=== PATIENT | male | born 1940 | race Caucasian/White ===

== ENCOUNTER 2019-11-12 10:11 | Outpatient (REF) | payer MEDICARE, SELFPAY ==
[2019-11-12 11:58] LABS: Estimated Average Glucose 146 mg/dL; Hemoglobin A1c % 6.7 %
[2019-11-12 12:17] LABS: Alanine Aminotransferase 18 U/L (0-40); Anion Gap 11 (12-20); Aspartate Amino Transferase 17 U/L (5-37); Blood Urea Nitrogen 16 mg/dL (9-16); Calcium 9.5 mg/dL (8.4-10.2); Carbon Dioxide 29 mmol/L (22-29); Chloride 105 mmol/L (96-108); Cholesterol 203 mg/dL; Estimated Glomerular Filt Rate > 60; Glucose Fasting 124 mg/dL (60-99); HDL Cholesterol 45 mg/dL; LDL Cholesterol Calculated 110 mg/dl; Potassium 4.8 mmol/l (3.3-5.1); Sodium 140 mmol/L (135-145); Triglycerides 243 mg/dL
== END 2019-11-12 10:12 | disposition home or self-care (01) ==
LOC: HO.HMGCLDS 10:11
PROVIDERS: PCP Internal Medicine; Visit Provider Internal Medicine
DX: E78.5 Hyperlipidemia, unspecified (principal); R80.9 Proteinuria, unspecified; E11.29 Type 2 diabetes mellitus with other diabetic kidney complication
CPT/HCPCS: 36415; 80048; 80061; 83036; 84450; 84460

== ENCOUNTER 2020-06-06 10:13 | Outpatient (REF) | payer MEDICARE, SELFPAY ==
[2020-06-06 11:53] LABS: Estimated Average Glucose 160 mg/dL; Hemoglobin A1c % 7.2 %
[2020-06-06 12:51] LABS: Alanine Aminotransferase 19 U/L (0-40); Anion Gap 14 (12-20); Aspartate Amino Transferase 18 U/L (5-37); Blood Urea Nitrogen 18 mg/dL (9-16); Calcium 9.7 mg/dL (8.4-10.2); Carbon Dioxide 27 mmol/L (22-29); Chloride 105 mmol/L (96-108); Cholesterol 147 mg/dL; Estimated Glomerular Filt Rate > 60; Glucose Fasting 139 mg/dL (60-99); HDL Cholesterol 49 mg/dL; LDL Cholesterol Calculated 75 mg/dl; Potassium 4.5 mmol/L (3.3-5.1); Sodium 141 mmol/L (135-145); Triglycerides 118 mg/dL; Uric Acid 6.6 mg/dL (3.4-7.0)
== END 2020-06-06 10:14 | disposition home or self-care (01) ==
LOC: HO.HMGCLDS 10:13
PROVIDERS: PCP Internal Medicine; Visit Provider Internal Medicine
DX: E11.29 Type 2 diabetes mellitus with other diabetic kidney complication (principal); E78.5 Hyperlipidemia, unspecified; M10.9 Gout, unspecified; R80.9 Proteinuria, unspecified; I10 Essential (primary) hypertension
CPT/HCPCS: 36415; 80048; 80061; 82043; 83036; 84450; 84460; 84550

== ENCOUNTER 2020-10-15 09:09 | Outpatient (REF) | payer MEDICARE, SELFPAY ==
[2020-10-15 11:41] LABS: Alanine Aminotransferase 22 U/L (0-40); Anion Gap 13 (12-20); Aspartate Amino Transferase 19 U/L (5-37); Blood Urea Nitrogen 14 mg/dL (9-16); Calcium 9.9 mg/dL (8.4-10.2); Carbon Dioxide 24 mmol/L (22-29); Chloride 106 mmol/L (96-108); Cholesterol 217 mg/dL; Estimated Glomerular Filt Rate > 60; Glucose Fasting 148 mg/dL (60-99); HDL Cholesterol 50 mg/dL; LDL Cholesterol Calculated 123 mg/dl; Potassium 3.8 mmol/L (3.3-5.1); Sodium 139 mmol/L (135-145); Triglycerides 220 mg/dL
[2020-10-15 11:45] LABS: Estimated Average Glucose 169 mg/dL; Hemoglobin A1c % 7.5 %
== END 2020-10-15 09:10 | disposition home or self-care (01) ==
LOC: HO.HMGCLDS 09:09
PROVIDERS: PCP Internal Medicine; Visit Provider Internal Medicine
DX: I10 Essential (primary) hypertension (principal); E11.29 Type 2 diabetes mellitus with other diabetic kidney complication; E78.5 Hyperlipidemia, unspecified; R80.9 Proteinuria, unspecified
CPT/HCPCS: 36415; 80048; 80061; 83036; 84450; 84460

== ENCOUNTER 2021-06-12 11:04 | Outpatient (REF) | payer MEDICARE, SELFPAY ==
[2021-06-12 14:09] LABS: Estimated Average Glucose 171 mg/dL; Hemoglobin A1c % 7.6 %
[2021-06-12 14:19] LABS: Alanine Aminotransferase 14 U/L (0-40); Anion Gap 11 (12-20); Aspartate Amino Transferase 15 U/L (5-37); Blood Urea Nitrogen 19 mg/dL (9-16); Calcium 9.7 mg/dL (8.4-10.2); Carbon Dioxide 26 mmol/L (22-29); Chloride 107 mmol/L (96-108); Cholesterol 152 mg/dL; Estimated Glomerular Filt Rate > 60; Glucose Fasting 135 mg/dL (60-99); HDL Cholesterol 49 mg/dL; LDL Cholesterol Calculated 83 mg/dl; Potassium 4.2 mmol/L (3.3-5.1); Sodium 140 mmol/L (135-145); Triglycerides 104 mg/dL
== END 2021-06-12 11:05 | disposition home or self-care (01) ==
LOC: HO.HMGCLDS 11:04
PROVIDERS: PCP Internal Medicine; Visit Provider Internal Medicine
DX: E78.5 Hyperlipidemia, unspecified (principal); R80.9 Proteinuria, unspecified; I10 Essential (primary) hypertension; E11.29 Type 2 diabetes mellitus with other diabetic kidney complication
CPT/HCPCS: 36415; 80048; 80061; 83036; 84450; 84460

== ENCOUNTER 2021-07-10 10:09 | Outpatient (REF) | payer MEDICARE, MEDICAID, SELFPAY ==
[2021-07-10 11:36] LABS: Appearance Urine CLOUDY; Color Urine YELLOW; Glucose Urine UA NEG (NEG); Leukocyte Esterase Urine 3+ (NEG); Nitrite Urine NEG (NEG); UACC Culture Trigger YES; Urine Blood 2+ (NEG); Urine Ketones NEG (NEG); Urine Protein TRACE MG/DL (NEG-TRACE)
[2021-07-10 12:15] LABS: WBC Urine TNTC /HPF (0-4)
[2021-07-10 12:16] LABS: Bacteria Urine 1+ /LPF
== END 2021-07-10 10:10 | disposition home or self-care (01) ==
LOC: HO.HMGCLDS 10:09
PROVIDERS: PCP Internal Medicine; Visit Provider Internal Medicine
DX: R35.0 Frequency of micturition (principal)
CPT/HCPCS: 81001; 87086; 87088; 87186

== ENCOUNTER 2021-08-17 09:00 | Outpatient (RCR) | payer MEDICARE, MEDICAID, SELFPAY ==
--- NOTE | 2021-07-17 09:32 | MHC.PT.EP ---
[facility] [place] Office [place] Office [place] Office [address] [phone] F: [phone] F: [phone] F: [phone] F: [phone] Physical Therapy Plan of Care Date of Evaluation: Date of Surgery: none Diagnosis: Upper Trap Pain Assessment: Patient is an 81 year old R handed female who presents with s/s consistent with upper trap pain. He is retired but stays busy around his house and with errands daily. Patient past medical history includes back pain and DM. Current impairments include pain, posture, ROM, strength, activity tolerance and functional mobility. Functional limitations include decreased ability to push, pull, lift, carry, sit and read. Patient is motivated with good rehab potential. Skilled PT will address impairments and functional limitations in order to achieve goals. 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 Manual therapy to restore motion and function. Therapeutic exercise to improve strength and flexibility. Neuromuscular re-education for posture and balance. Therapeutic activities to return to functional activities of daily living. Electronically signed by: Panda Spann PT Please sign and return to therapist. Thank you for your referral.
--- NOTE | 2021-10-29 11:10 | MHC.PT.DC ---
[facility] [place] Office [place] Office [place] Office [address] [phone] F: [phone] F: [phone] F: [phone] F: [phone] Physical Therapy Discharge Report Diagnosis: Upper Trap Pain Date of Surgery: none Date of Evaluation: 07/16/21 Date of Discharge: 09/19/21 Treatments to Date: 5 Cancellations to Date: No Shows to Date: Discharge Status: Improved Function Independent with HEP Discharge Summary: 08/17/21: pt has been feeling better symptomatically. cervical rotation 54 b/l. he will continue with HEP and return if needed in 2 weeks. 08/06/21: pt does have difficulty following cues but does persevere. we will follow up in 10 days after pt attempts HEP. 07/30/21: pt progressing well with skilled PT. less s/s and improved function during daily activities. sleeping better . 07/23/21: pt notes compliance with HEP and improvement in s/s. he does require significant cuing for mechanics of rows and all ex for that matter. Patient is an 81 year old R handed female who presents with s/s consistent with upper trap pain. He is retired but stays busy around his house and with errands daily. Patient past medical history includes back pain and DM. Current impairments include pain, posture, ROM, strength, activity tolerance and functional mobility. Functional limitations include decreased ability to push, pull, lift, carry, sit and read. Patient is motivated with good rehab potential. Skilled PT will address impairments and functional limitations in order to achieve goals. Electronically signed by: Panda Spann, PT Please sign and return to therapist. Thank you for your referral.
== END 2021-10-29 11:11 | disposition home or self-care (01) ==
LOC: HO.PTCHIC 09:00
PROVIDERS: PCP Internal Medicine; Visit Provider Internal Medicine
DX: M54.9 Dorsalgia, unspecified (principal)
CPT/HCPCS: 97110; 97140; 97162

== ENCOUNTER 2021-09-01 19:51 | Emergency (ER) | payer MEDICARE, MEDICAID, SELFPAY ==
[2021-09-01 22:03] VITALS: BP 163/76; PULSE 53; RESP 15; TEMP 36.1; O2SAT 98; BMI 27.3
--- NOTE | 2021-09-01 22:39 | ED_ITS ---
HPI - Skin/Abscess/Foreign Bdy General Chief complaint: Skin/Abscess/Foreign Body Stated complaint: discoloration across body Time Seen by Provider: 09/01/21 22:13 Source: patient Mode of arrival: ambulatory Limitations: no limitations History of Present Illness HPI narrative: 81 yo male with history of HLD, gout, DM who presents to the ER for evaluation of a red/purple area on his left forearm that he noticed about 4 days ago. He denies any injury to the area and he denies being on blood thinners. Denies being bit by any insects or ticks. No fever or chills. He also reports multiple raised red spots on his back. He states these are old and have been evaluated by his PCP but he wanted a second opinion. He tried to get a referral to a business manager college or university but insurance declined. He is worried he may have Monkey Pox. MD complaint: lesion and discoloration Onset (ago): day(s) (4) Tetanus up to date: unsure Location: back and LUE Severity: mild Relieving factors: other (hydrocortisone ointment ) Exacerbating factors: none Context: none Associated symptoms: denies other symptoms Treatments prior to arrival: none Related Data Home Medications Medication Instructions Recorded Confirmed albuterol sulfate 90 mcg/actuation inhalation 11/30/19 11/03/20 aerosol inhaler tamsulosin 0.4 mg capsule 0.4 mg PO DAILY 11/03/20 11/03/20 finasteride 5 mg tablet 5 mg PO DAILY 07/08/21 metformin 500 mg tablet 500 mg PO DAILY 07/08/21 Previous Rx's Medication Instructions Recorded allopurinol 100 mg tablet 100 mg PO DAILY #90 tabs 06/11/20 lancets (Accu-Chek Softclix #100 ea 06/26/20 Lancets) atorvastatin 20 mg tablet 10 mg PO DAILY #90 tabs 11/03/20 loratadine 10 mg tablet 10 mg PO DAILY #90 tabs 06/02/21 fluticasone propionate 50 1 spray intranasal DAILY #48 mL 07/11/21 mcg/actuation nasal spray,suspension sulfamethoxazole 800 1 tab PO Q12H 10 days #20 tabs 07/13/21 mg-trimethoprim 160 mg tablet (Bactrim DS) blood sugar diagnostic (Accu-Chek #100 ea 07/20/21 Glenys Plus test strips) Allergies Allergy/AdvReac Type Severity Reaction Status Date / Time penicillin V Allergy Unknown itching Verified 07/08/21 13:03 Review of Systems Review of Systems: Constitutional: No Fever, No Chills ENT/Mouth: No sore throat, No Rhinorrhea Eyes: No Eye Pain, No Swelling, No Redness Cardiovascular: No Chest Pain, No SOB Respiratory: No Cough, No Sputum Gastrointestinal: No Nausea, No Vomiting, No abdominal Pain Musculoskeletal: No joint pain, No Myalgias Skin: + Skin Lesions, No rash, No itching Neuro: No Weakness, No Numbness, No Dizziness, No Headache Psych: No Anxiety/Panic, No Depression Heme/Lymph: +Bruising PMFSH Past Medical History Medical History (Updated 09/01/21 @ 22:43 by ALLIE Wyman) Allergic rhinitis Benign prostatic hyperplasia Diabetes mellitus with microalbuminuria, without long-term current use of insulin Dyslipidemia Gout Lesion of left pinna Skin lesion of chest wall Upper back pain UTI (urinary tract infection) Surgical History History of bladder surgery Hx of cholecystectomy Family History Family History Father HTN (hypertension) Son Diabetes mellitus Daughter No problems noted. Daughter No problems noted. Daughter No problems noted. Social History Social History Housing: House Alcohol intake: never Patient Tobacco Use Status: Former Tobacco user Years Smoked: 12 yrs e-Cigarette/Vaping Use: Never Used Advance Directives: No Advance Directives Information Provided: No Current occupational status: retired Cognitive needs: No Hearing needs: No Vision needs: Yes Physical Exam Vital Signs: Vital Signs: Last Vital Signs Temp 97 F 09/01/21 22:03 Pulse 53 09/01/21 22:03 Resp 15 09/01/21 22:03 BP 163/76 H 09/01/21 22:03 Pulse Ox 98 09/01/21 22:03 O2 Del Method 09/01/21 22:03 BMI result Body Mass Index 27.3 Appearance: Alert. Oriented X3. No acute distress. Eyes: Pupils equal, round and reactive to light. ENT: Pharynx normal. Neck: Normal inspection. Neck supple. Respiratory: No respiratory distress. Skin: Skin warm and dry. Normal skin color. Normal skin turgor. Left forarm with a 3cm x2cm flat circular purple area, nontender. no warmth or vesicles. Back with multiple <1cm red, raised papules scattered. nontender. Extremities: No lower extremity edema. Neuro: Oriented X 3. Grossly normal, nonfocal. Course Course Course Narrative: 81 yo male presenting to the ER for dermatologic concerns. Left forearm lesion appears to be a small area of ecchymosis. Nontender and no itching. No vesicles or signs of infection. 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 He was counseled and reassured. He wanted to make sure he did not have monkey pox. Stable for d/c home. Critical Care Time Critical Care Time Critical Care Time: No Discharge Plan Discharge Clinical Impression: Ecchymosis of forearm, Tillman angioma Patient Disposition: Home, Self-Care Instructions: Ecchymosis (ED) Additional Instructions: The lesion on your left forearm looks like a healing bruise, also known as ecchymosis. It will go away and resolve with time. Recommend following up with your doctor and get a referral to [facility] for skin check. You can also try calling the Architecture Manager below If you develop new or worsening symptoms call 911 or come back to the ER for further evaluation. Prescriptions: No Action (DME) lancets [Accu-Chek Softclix Lancets] Misc See Rx Instructions .ROUTE .MEDSUPPLY Qty: 100 3RF Rx Instructions: use 1 lancet twice a day to test blood sugar loratadine 10 mg tablet 10 mg PO DAILY Qty: 90 3RF fluticasone propionate 50 mcg/actuation spray,suspension 1 spray intranasal DAILY Qty: 48 2RF sulfamethoxazole-trimethoprim [Bactrim DS] 800-160 mg tablet 1 tab PO Q12H 10 Days Qty: 20 0RF (DME) Accu-Chek Glenys Plus test strp Strip See Rx Instructions .ROUTE .MEDSUPPLY Qty: 100 3RF Rx Instructions: use 1 strip twice a day to test blood sugar tamsulosin 0.4 mg capsule 0.4 mg PO DAILY atorvastatin 20 mg tablet 10 mg PO DAILY Qty: 90 1RF albuterol sulfate 90 mcg/actuation HFA aerosol inhaler inhalation allopurinol 100 mg tablet 100 mg PO DAILY Qty: 90 1RF finasteride 5 mg tablet 5 mg PO DAILY metformin 500 mg tablet 500 mg PO DAILY Referrals: Bri Gallardo PA-C [Physician Mri Specialist] - (skin check)
== END 2021-09-01 23:13 | disposition home or self-care (01) ==
PROVIDERS: Emergency Provider Internal Medicine; PCP Internal Medicine
DX: D18.09 Hemangioma of other sites (principal); R58 Hemorrhage, not elsewhere classified; E11.9 Type 2 diabetes mellitus without complications; E78.5 Hyperlipidemia, unspecified; Z79.84 Long term (current) use of oral hypoglycemic drugs; Z79.02 Long term (current) use of antithrombotics/antiplatelets
CPT/HCPCS: 99282

== ENCOUNTER 2021-10-20 09:08 | Outpatient (REF) | payer MEDICARE, MEDICAID, SELFPAY ==
[2021-10-20 12:09] LABS: Alanine Aminotransferase 19 U/L (0-40); Anion Gap 14 (12-20); Aspartate Amino Transferase 16 U/L (5-37); Blood Urea Nitrogen 15 mg/dL (9-16); Calcium 9.5 mg/dL (8.4-10.2); Carbon Dioxide 28 mmol/L (22-29); Chloride 104 mmol/L (96-108); Cholesterol 173 mg/dL; Estimated Glomerular Filt Rate > 60; Glucose Fasting 158 mg/dL (60-99); HDL Cholesterol 45 mg/dL; LDL Cholesterol Calculated 94 mg/dl; Potassium 4.5 mmol/L (3.3-5.1); Sodium 141 mmol/L (135-145); Triglycerides 172 mg/dL
[2021-10-20 12:15] LABS: Estimated Average Glucose 163 mg/dL; Hemoglobin A1c % 7.3 %
[2021-10-20 12:45] LABS: Creatinine Urine 68.36 mg/dL; Microalbum/Creatinine Ratio Ur 127.2 ug/mg cr
== END 2021-10-20 09:09 | disposition home or self-care (01) ==
LOC: HO.HMGCLDS 09:08
PROVIDERS: PCP Internal Medicine; Visit Provider Internal Medicine
DX: R80.9 Proteinuria, unspecified (principal); E78.5 Hyperlipidemia, unspecified; E11.29 Type 2 diabetes mellitus with other diabetic kidney complication
CPT/HCPCS: 36415; 80048; 80061; 82043; 83036; 84450; 84460

== ENCOUNTER 2022-03-12 11:15 | Outpatient (REF) | payer MEDICARE, MEDICAID, SELFPAY ==
[2022-03-12 14:13] LABS: Alanine Aminotransferase 21 U/L (0-40); Anion Gap 13 (12-20); Aspartate Amino Transferase 17 U/L (5-37); Blood Urea Nitrogen 17 mg/dL (9-16); Calcium 9.7 mg/dL (8.4-10.2); Carbon Dioxide 27 mmol/L (22-29); Chloride 104 mmol/L (96-108); Cholesterol 172 mg/dL; Estimated Glomerular Filt Rate > 60; Glucose Fasting 146 mg/dL (60-99); HDL Cholesterol 49 mg/dL; LDL Cholesterol Calculated 97 mg/dl; Sodium 140 mmol/L (135-145); Triglycerides 131 mg/dL
[2022-03-12 14:31] LABS: Vitamin D 25-OH Total 25.9 ng/mL (>30)
[2022-03-12 14:38] LABS: Estimated Average Glucose 189 mg/dL; Hemoglobin A1c % 8.2 %
== END 2022-03-12 11:16 | disposition home or self-care (01) ==
LOC: HO.HMGCLDS 11:15
PROVIDERS: PCP Internal Medicine; Visit Provider Internal Medicine
DX: E11.29 Type 2 diabetes mellitus with other diabetic kidney complication (principal); R80.9 Proteinuria, unspecified; E78.5 Hyperlipidemia, unspecified
CPT/HCPCS: 36415; 80048; 80061; 82306; 83036; 84450; 84460

== ENCOUNTER 2022-03-18 10:26 | Outpatient (AMB) | payer MEDICARE, MEDICAID, SELFPAY ==
--- NOTE | 2022-03-18 10:55 | A.OFFPC_ITS ---
Vital Signs 03/18/22 11:04 Height 5 ft 7 in Weight 183 lb BMI 28.6 BP 136/72 Blood Pressure Location Rt brachial Position Sitting Pulse 64 Pulse Source Pulse Oximeter Pulse Oximetry (%) 96 Intake Visit Reasons: f/u labs Intake Note: Pt is here today to discuss recent lab results Allergies penicillin V Allergy (Unknown, Verified 09/28/22 13:58) itching Medication List - Last Reconciled 03/18/22 by Kelsy Valdez MD albuterol sulfate 90 mcg/actuation inhalation allopurinol 100 mg PO DAILY atorvastatin 10 mg (1/2 x 20 mg) PO DAILY blood sugar diagnostic (Accu-Chek Glenys Plus test strips) use 1 strip twice a day to test blood sugar finasteride 5 mg PO DAILY fluticasone propionate 50 mcg/actuation 1 spray intranasal DAILY lancets (Accu-Chek Softclix Lancets) use 1 lancet twice a day to test blood sugar loratadine 10 mg PO DAILY metformin 500 mg PO DAILY tamsulosin 0.4 mg PO DAILY Tobacco use date assessed: 03/18/22 Fall risk assessment: No Falls in past year Last assessed Fall Risk: 03/18/22 HPI f/u labs HPI Details 82-year-old male with Diabetes mellitus, and dyslipidemia here today for follow-up has been taking metformin 500 mg once a day and atorvastatin 10 mg daily. Has been trying to follow recommended diet but not with getting any exercise done. Latest fasting labs showed lipids within normal limits but A1cs at 8.2%. COUNTS INCLUDE [facility] BEDS AT [facility] Medical History Allergic rhinitis Benign prostatic hyperplasia Diabetes mellitus with microalbuminuria, without long-term current use of insulin Dyslipidemia Gout Lesion of left pinna Skin lesion of chest wall Upper back pain UTI (urinary tract infection) Vitamin D deficiency Surgical History History of bladder surgery Hx of cholecystectomy Family History Father HTN (hypertension) Son Diabetes mellitus Daughter No problems noted. Daughter No problems noted. Daughter No problems noted. Social History Housing: House Alcohol intake: never Patient Tobacco Use Status: Former Tobacco user Years Smoked: 12 yrs e-Cigarette/Vaping Use: Never Used Current occupational status: retired Cognitive needs: No Hearing needs: No Vision needs: Yes Questionnaire Thrive Questionnaire Date Thrive assessed: 10/22/21 KARTHIK-7 AMB Questionnaire KARTHIK-7 Date KARTHIK - 7 assessed: 10/22/21 Source: Developed by Drs. Federico Ramirez, Kiley oH, José Antonio Head and colleagues, with an educational roseann from [employer]. Review of Systems Const Denies fever(s), Denies headache(s) and Denies weakness Eyes Denies change in vision ENT Denies dizziness, Denies headache(s), Denies nasal congestion, Denies nasal discharge and Denies sore throat Card Denies chest pain, Denies lightheadedness, Denies palpitations and Denies dyspnea Resp Denies chest congestion, Denies cough, Denies dyspnea and Denies wheezing GI Denies abdominal pain, Denies change in bowel habits and Denies heartburn Denies hematuria and Denies difficulty urinating Musc Reports as per HPI Neuro Denies dizziness, Denies headache(s) and Denies weakness Psych Reports no additional complaints Endo Denies polydipsia and Denies palpitations Ronaldo/Lymph Denies easy bruising Aller/Immun Denies seasonal rhinorrhea and Denies wheezing Physical exam (Primary Care) Vital Signs: Last Vital Signs Pulse 64 03/18/22 11:04 BP 136/72 03/18/22 11:04 Pulse Ox 96 03/18/22 11:04 BMI result Body Mass Index 28.6 Tobacco/Smoking Status: Tobacco use Status Tobacco use date assessed 03/18/22 03/18/22 11:01 Patient Tobacco Use Status Former Tobacco user 03/18/22 10:59 e-Cigarette/Vaping Use Never Used 03/18/22 10:59 Thrive Assessment: Date of Thrive Assessment Date Thrive assessed 10/22/21 03/18/22 10:59 Const General: no acute distress and alert Orientation/consciousness: patient oriented x3 HENMT Ears: external ears normal General nose exam: Normal external nose present Mouth: moist mucous membranes Eyes General: appearance normal, both eyes and all related structures Pupils: Equal, round and reactive pupils present Neck Neck: Yes full ROM, Yes no lymphadenopathy and Yes supple Resp Effort & Inspection: normal respiratory effort and able to speak in complete sentences Auscultation: clear to auscultation bilaterally Cardio Rate: regular rate Rhythm: regular rhythm Heart sounds: S1 normal heart sound present and S2 normal heart sound present GI Palpation (GI): Soft to palpation, nontender and no masses Auscultation: normal bowel sounds Skin General skin exam: no rashes or lesions noted Neuro General: patient oriented x3, gait normal, tone normal, moves all extremities, Normal light touch and pain sensation and no focal motor deficits Cranial nerves: Yes CN's II-XII intact bilaterally and Yes Equal, round and reactive pupils present Cognition (Neuro): normal cognition Extrem General: Yes full ROM, Yes no joint enlargement, Yes no clubbing, cyanosis or edema and Yes no calf tenderness Results Reviewed Results Reviewed: COMP: 03/12/22-1431 ENTERED: 03/12/22-1119 JUAN A LIMA: ORDERED: Met Prof Fast, AST, ALT, Lipid Panel, Vitamin D 25-OH Test Result Flag Reference Site Sodium 140 135-145 mmol/L Potassium 4.0 3.3-5.1 mmol/L CL 104 96-108 mmol/L CO2 27 22-29 mmol/L Gap 13 12-20 BUN 17 H 9-16 mg/dL Creat 1.01 0.5-1.4 mg/dL EGFR > 60 NOTE: For -Serbian individuals, multiply the result by 1.210. Chronic Kidney Disease: Estimated GFR < 60 mL/min/1.73m2 Severe Kidney Disease: Estimated GFR < 15 mL/min/1.73m2 FBS 146 H 60-99 mg/dL A fasting glucose of 126 mg/dl or greater on more than one occasion is considered diagnostic of diabetes. CA 9.7 8.4-10.2 mg/dL AST (GOT) 17 5-37 U/L ALT (GPT) 21 0-40 U/L Triglyceride 131 mg/dL Desirable Triglyceride: less than 150 mg/dL Borderline High Triglyceride 150-199 mg/dL High Triglyceride: 200-499 mg/dL Very High Triglyceride: greater than or equal to 5OO mg/dL Chol 172 mg/dL Desirable Cholesterol: less than 200 mg/dL Borderline High Cholesterol: 200-239 mg/dL High Cholesterol: greater than 239 mg/dL LDL Calculated 97 mg/dl Desirable LDL: less than 100 mg/dL Near Optimal/Above Optimal LDL: 110-129 mg/dL Borderline High LDL: 130-159 mg/dL High LDL: 160-189 mg/dL Very High LDL: greater than or equal to 190 mg/dL HDL 49 mg/dL Desirable HDL: greater than 40 mg/dL Note: This HDL assay may give artificially low results in patients with liver disease. Vit D 25-OH Tot 25.9 >30 ng/mL Health Based Reference Values* < 20 ng/mL Deficient 20-30 ng/mL Insufficient > 30 ng/mL Sufficient Laboratory Tests 03/12/22 11:20 Estimat Average Glucose 189 Hemoglobin A1c % 8.2 Assessment and Plan Assessment & Plan (1) Diabetes mellitus with microalbuminuria, without long-term current use of insulin: Code(s): E11.29 - Type 2 diabetes mellitus with other diabetic kidney complication; R80.9 - Proteinuria, unspecified Plan: Recent lab results reviewed with patient, with sugar and hemoglobin not at goal . Increase dose of metformin to 500 mg tablet taken twice a day with meals a.m. and p.m., Reinforced diabetic diet and regular exercise with patient. Counseled regarding importance of yearly diabetes retinopathy screening. Patient advised to inspect feet daily, for any signs of injury, callus or infection. Compliance with diet and regular exercise again stressed. Blood pressure goal is less than 130/80, goal LDL is less than 100 and goal hemoglobin A1c is less than 7% follow-up appointment made in-3--months, after fasting labs done. (2) Vitamin D deficiency: Code(s): E55.9 - Vitamin D deficiency, unspecified Plan: Pres[place] 3 [place] [address] units per capsule to take once a week for the next 3 months. (3) Dyslipidemia: Code(s): E78.5 - Hyperlipidemia, unspecified Plan: Reviewed recent fasting lipid profile with patient with levels within normal . Continue with atorvastatin 10 mg daily , in addition to adherence to low- cholesterol diet and regular exercise, at least 30 minutes 3 to 4 times a week. Advised patient to make healthy food choices, eat more fruits, vegetables, whole grains, wild caught fish and low-fat dairy. Limit amount of meat and fried or fatty food products, as well as processed foods and fast foods. Follow-up scheduled with repeat fasting lipid panel in 3 months. Orders: Orders Hemoglobin A1c 3 Months E55.9 - Vitamin D deficiency, unspecified, E78.5 - Hyperlipidemia, unspecified, E11.29 - Type 2 diabetes mellitus with other diabet ic kidney complication, R80.9 - Proteinuria, unspecified Lipid Panel 3 Months E55.9 - Vitamin D deficiency, unspecified, E78.5 - Hyperlipidemia, unspecified, E11.29 - Type 2 diabetes mellitus with other diabetic kidney complication, R80.9 - Proteinuria, unspecified Basic Metabolic Panel Fasting 3 Months E55.9 - Vitamin D deficiency, unspecified , E78.5 - Hyperlipidemia, unspecified, E11.29 - Type 2 diabetes mellitus with other diabetic kidney complication, R80.9 - Proteinuria, unspecified Alanine Aminotransferase 3 Months E55.9 - Vitamin D deficiency, unspecified, E78.5 - Hyperlipidemia, unspecified, E11.29 - Type 2 diabetes mellitus with other diabetic kidney complication, R80.9 - Proteinuria, unspecified Aspartate Amino Transferase 3 Months E55.9 - Vitamin D deficiency, unspecified, E78.5 - Hyperlipidemia, unspecified, E11.29 - Type 2 diabetes mellitus with other diabetic kidney complication, R80.9 - Proteinuria, unspecified Vitamin D 25-OH Total 3 Months E55.9 - Vitamin D deficiency, unspecified, E78.5 - Hyperlipidemia, unspecified, E11.29 - Type 2 diabetes mellitus with other diabetic kidney complication, R80.9 - Proteinuria, unspecified Medications: New cholecalciferol (vitamin D3) 1,250 mcg PO QWEEK 13 caps 0RF 3 months E55.9 - Vitamin D deficiency, unspecified Changed From metformin 500 mg PO DAILY 90 tabs 1RF E11.29 - Type 2 diabetes mellitus with other diabetic kidney complication, R80.9 - Proteinuria, unspecified To metformin 500 mg PO BIDWMEAL 60 tabs 5RF 30 days E11.29 - Type 2 diabetes mellitus with other diabetic kidney complication, R80.9 - Proteinuria, unspecified Coding Level of Care Code Est Pt Level 4 (54976) Diagnoses Diabetes mellitus with microalbuminuria, without long-term current use of insulin E11.29; R80.9 Vitamin D deficiency E55.9 Dyslipidemia E78.5
[2022-03-18 11:04] VITALS: BP 136/72; PULSE 64; O2SAT 96; BMI 28.6
== END 2022-03-18 11:49 | disposition home or self-care (01) ==
LOC: HO.HMGC 10:26
PROVIDERS: PCP Internal Medicine; Visit Provider Internal Medicine
DX: E11.29 Type 2 diabetes mellitus with other diabetic kidney complication (principal); R80.9 Proteinuria, unspecified; E55.9 Vitamin D deficiency, unspecified; E78.5 Hyperlipidemia, unspecified
CPT/HCPCS: 99214

== ENCOUNTER 2022-08-27 08:11 | Outpatient (REF) | payer MEDICARE, MEDICAID, SELFPAY ==
[2022-08-27 13:18] LABS: Estimated Average Glucose 169 mg/dL; Hemoglobin A1c % 7.5 %
[2022-08-27 13:35] LABS: Alanine Aminotransferase 22 U/L (0-40); Anion Gap 11 (12-20); Aspartate Amino Transferase 18 U/L (5-37); Blood Urea Nitrogen 18 mg/dL (9-16); Calcium 9.4 mg/dL (8.4-10.2); Carbon Dioxide 27 mmol/L (22-29); Chloride 105 mmol/L (96-108); Cholesterol 162 mg/dL; Estimated Glomerular Filt Rate > 60; Glucose Fasting 147 mg/dL (60-99); HDL Cholesterol 49 mg/dL; LDL Cholesterol Calculated 79 mg/dl; Potassium 3.6 mmol/L (3.3-5.1); Sodium 139 mmol/L (135-145); Triglycerides 174 mg/dL
[2022-08-27 13:52] LABS: Vitamin D 25-OH Total 14.7 ng/mL (>30)
== END 2022-08-27 08:12 | disposition home or self-care (01) ==
LOC: HO.HMGCLDS 08:11
PROVIDERS: PCP Internal Medicine; Visit Provider Internal Medicine
DX: E11.29 Type 2 diabetes mellitus with other diabetic kidney complication (principal); E55.9 Vitamin D deficiency, unspecified; E78.5 Hyperlipidemia, unspecified; R80.9 Proteinuria, unspecified
CPT/HCPCS: 36415; 80048; 80061; 82306; 83036; 84450; 84460

== ENCOUNTER 2022-09-28 13:46 | Outpatient (AMB) | payer MEDICARE, MEDICAID, SELFPAY ==
[2022-09-28 13:55] VITALS: BP 122/64; PULSE 74; O2SAT 97; BMI 28.5
--- NOTE | 2022-09-28 13:55 | MHC.PC.OV ---
Vital Signs 09/28/22 13:55 Height 5 ft 7 in Weight 182 lb BMI 28.5 BP 122/64 Blood Pressure Location Rt brachial Position Sitting Pulse 74 Pulse Source Pulse Oximeter Pulse Oximetry (%) 97 Intake Visit Reasons: R side pain Intake Note: pt is here for c/o right lower abd pain grows to lower back side Special Agent Required: No Accompanied by: Self / Same As Patient Allergies penicillin V Allergy (Unknown, Verified 09/28/22 14:11) itching Medication List - Last Reconciled 09/28/22 by Kelsy Valdez MD albuterol sulfate 90 mcg/actuation inhalation allopurinol 100 mg PO DAILY atorvastatin 10 mg PO DAILY blood sugar diagnostic (Accu-Chek Glenys Plus test strips) use 1 strip twice a day to test blood sugar cholecalciferol (vitamin D3) 1,250 mcg PO QWEEK 3 months finasteride 5 mg PO DAILY fluticasone propionate 50 mcg/actuation 1 spray intranasal DAILY lancets (Accu-Chek Softclix Lancets) use 1 lancet twice a day to test blood sugar loratadine 10 mg PO DAILY metformin 500 mg PO BIDWMEAL tamsulosin 0.4 mg PO DAILY Tobacco use date assessed: 03/18/22 Fall risk assessment: No Falls in past year Last assessed Fall Risk: 09/28/22 Dental Screening Dental Screen Date: 09/28/22 Did you have a dental visit in the last 12 months?: No Did you have a dental problem in the last 6 months where you did not have access to dental care?: No Was dental information given to patient?: Patient declined HPI R side pain HPI Details 82-year-old male with diabetes mellitus uncontrolled, dyslipidemia and vitamin-D deficiency as well as benign prostatic hyperplasia, here today complaining of pain in the for right lower abdomen just above the hip, nonradiating, which started early this morning. Denies any accompanying fever, nausea, no vomiting, no urinary symptoms, no alteration in bowel habits. Patient convinced that he has appendicitis, would like to get it checked. He also has diabetes mellitus, dyslipidemia , benign prostatic hyperplasia, and has decided that he did not want to take any more medications. He stop taking all his medicines for the last month, states that he feels well apart from above symptoms noted. He had labs done a month ago which showed his hemoglobin A1c at 7.5% and this is already on metformin 500 mg at night, lipids are within normal limits and has low vitamin-D level. . [facility] Medical History (Updated 09/28/22 @ 14:40 by Kelsy Valdez MD) Allergic rhinitis Benign prostatic hyperplasia Diabetes mellitus with microalbuminuria, without long-term current use of insulin Dyslipidemia Gout Noncompliance with medication regimen Vitamin D deficiency Surgical History History of bladder surgery Hx of cholecystectomy Family History Father HTN (hypertension) Son Diabetes mellitus Daughter No problems noted. Daughter No problems noted. Daughter No problems noted. Social History Housing: House Alcohol intake: never Patient Tobacco Use Status: Former Tobacco user Years Smoked: 12 yrs e-Cigarette/Vaping Use: Never Used Current occupational status: retired Cognitive needs: No Hearing needs: No Vision needs: Yes Questionnaire PHQ-9 Over the last 2 weeks, how often have you been bothered by any of the following problems? 1. Little interest or pleasure in doing things: not at all 2. Feeling down, depressed, or hopeless: not at all 3. Trouble falling or staying asleep, or sleeping too much: not at all 4. Feeling tired or having little energy: not at all 5. Poor appetite or overeating: not at all 6. Feeling bad about yourself - or that you are a failure or have let yourself or your family down: not at all 7. Trouble concentrating on things, such as reading the newspaper or watching television: not at all 8. Moving or speaking so slowly that other people could have noticed. Or the opposite - being so fidgety or restless that you have been moving around a lot more than usual: not at all 9. Thoughts that you would be better off or of hurting yourself in some way: not at all Total score: 0 Depression Screening Interpretation: Negative [id number] - PHQ-9 Billing: Yes Source: Developed by Drs. Federico Ramirez, Kiley Ho, José Antonio Head and colleagues, with an educational roseann from [employer]. Thrive Questionnaire Date Thrive assessed: 09/28/22 I am a: Patient What is your living situation today?: I have a steady place to live Within the past 12 months, did the food you bought not last and you didn't have the money to get more?: Never true Within the past 12 months, did you worry whether your food would run out before you got money to buy more?: Never true Do you have trouble paying for medicines?: No Do you have trouble getting transportation to medical appointments?: No Do you have trouble paying your heating and electricity bill?: No Do you have trouble taking care of your child, family member or friend?: No Do you have trouble with day-to-day activities such as bathing, preparing meals, shopping, managing finances, etc.?: No Are you currently unemployed and looking for a job?: No Are you interested in more education?: No KARTHIK-7 AMB Questionnaire KARTHIK-7 Date KARTHIK - 7 assessed: 10/22/21 Source: Developed by Drs. Federico Ramirez, Kiley Ho, José Antonio Head and colleagues, with an educational roseann from [employer]. Review of Systems Const Reports as per HPI, Reports no additional complaints and Denies fatigue ENT Reports no additional complaints Card Denies chest pain, Denies chest pain with activity, Denies rapid heart rate, Denies edema, Denies lightheadedness, Denies dyspnea and Denies dyspnea on exertion Resp Denies cough, Denies dyspnea and Denies dyspnea on exertion GI Reports as per HPI, Denies melena, Denies hematochezia and Denies heartburn Reports no additional complaints Musc Reports no additional complaints Skin/Breast Denies lesions and Denies rash Neuro Reports no additional complaints Endo Denies fatigue, Denies polyphagia, Denies polydipsia and Denies polyuria Ronaldo/Lymph Denies easy bleeding and Denies easy bruising Aller/Immun Reports no additional complaints Physical exam (Primary Care) Vital Signs: Last Vital Signs Pulse 74 09/28/22 13:55 BP 122/64 09/28/22 13:55 Pulse Ox 97 09/28/22 13:55 BMI result Body Mass Index 28.5 Tobacco/Smoking Status: Tobacco use Status Tobacco use date assessed 03/18/22 09/28/22 13:56 Patient Tobacco Use Status Former Tobacco user 09/28/22 13:56 e-Cigarette/Vaping Use Never Used 09/28/22 13:56 Depression Screening Interpretation: Negative Thrive Assessment: Date of Thrive Assessment Date Thrive assessed 10/22/21 09/28/22 13:56 Const General: cooperative, comfortable, no acute distress, awake and Physically active Nutritional Appearance: overweight Orientation/consciousness: patient oriented x3 Limitations: no limitations HENMT Head: Yes normocephalic Mouth: Normal oral and palatal mucosa present and moist mucous membranes Eyes General: appearance normal, both eyes and all related structures Neck Neck: Yes full ROM, Yes no lymphadenopathy and Yes supple Resp Effort & Inspection: normal respiratory effort Auscultation: clear to auscultation bilaterally GI Palpation (GI): Soft to palpation, Tenderness to palpation present (GI) (Right lower quadrant) Rovsing's sign negative, no guarding, no masses and No Rebound tenderness present Auscultation: normal bowel sounds Skin General skin exam: no rashes or lesions noted Neuro General: patient oriented x3, gait normal, tone normal, moves all extremities and no focal motor deficits Extrem General: Yes no clubbing, cyanosis or edema Results AMB Hemoglobin A1c AMB Hemoglobin A1c 7.5 % Last Edit by Raffi Grace CMA on 09/28/22 14:20 Results Reviewed Results Reviewed: Name: Anderson Sampson Age/Sex: 82/M : 1940 Unit#: [id number] Attend Dr: Kelsy Valdez MD Re08/27/22 Status: DEP REF Location: [facility] Disch: SPEC : [id number] MIGUEL: 08/27/22 STATUS: COMP REQ : [id number] RECD: 08/27/22-[address]: Kelsy Valdez MD COMP: 08/27/22135 ENTERED: 08/27/22-[address]: ORDERED: Met Prof Fast, AST, ALT, Lipid Panel, Vitamin D 25-OH Test Result Flag Reference Site Sodium 139 135-145 mmol/L Potassium 3.6 3.3-5.1 mmol/L CL 105 96-108 mmol/L CO2 27 22-29 mmol/L Gap 11 L 12-20 BUN 18 H 9-16 mg/dL Creat 1.10 0.5-1.4 mg/dL EGFR > 60 NOTE: For -[place] individuals, multiply the result by 1.210. Chronic Kidney Disease: Estimated GFR < 60 mL/min/1.73m2 Severe Kidney Disease: Estimated GFR < 15 mL/min/1.73m2 FBS 147 H 60-99 mg/dL A fasting glucose of 126 mg/dl or greater on more than one occasion is considered diagnostic of diabetes. CA 9.4 8.4-10.2 mg/dL AST (GOT) 18 5-37 U/L ALT (GPT) 22 0-40 U/L Triglyceride 174 mg/dL Desirable Triglyceride: less than 150 mg/dL Borderline High Triglyceride 150-199 mg/dL High Triglyceride: 200-499 mg/dL Very High Triglyceride: greater than or equal to 5OO mg/dL Chol 162 mg/dL Desirable Cholesterol: less than 200 mg/dL Borderline High Cholesterol: 200-239 mg/dL High Cholesterol: greater than 239 mg/dL LDL Calculated 79 mg/dl Desirable LDL: less than 100 mg/dL Near Optimal/Above Optimal LDL: 110-129 mg/dL Borderline High LDL: 130-159 mg/dL High LDL: 160-189 mg/dL Very High LDL: greater than or equal to 190 mg/dL HDL 49 mg/dL Desirable HDL: greater than 40 mg/dL Note: This HDL assay may give artificially low results in patients with liver disease. Vit D 25-OH Tot 14.7 >30 ng/mL Health Based Reference Values* < 20 ng/mL Deficient 20-30 ng/mL Insufficient > 30 ng/mL Sufficient Laboratory Tests 08/27/22 09/28/22 08:18 14:19 Estimat Average Glucose 169 Hgb A1c (Clinic) 7.5 H Hemoglobin A1c % 7.5 Assessment and Plan Assessment & Plan (1) Right lower quadrant abdominal pain: Code(s): R10.31 - Right lower quadrant pain Plan: Stat Ultrasound of appendix ordered (2) Dyslipidemia: Code(s): E78.5 - Hyperlipidemia, unspecified Plan: Reviewed recent fasting lipid profile with patient with levels within normal limits. . Stressed importance of taking atorvastatin, restarted back on 10 mg daily , in addition to adherence to low-cholesterol diet and regular exercise, at least 30 minutes 3 to 4 times a week. Advised patient to make healthy food choices, eat more fruits, vegetables, whole grains, wild caught fish and low-fat dairy. Limit amount of meat and fried or fatty food products, as well as processed foods and fast foods. Follow-up scheduled with repeat fasting lipid panel in 3 months. (3) Diabetes mellitus with microalbuminuria, without long-term current use of insulin: Code(s): E11.29 - Type 2 diabetes mellitus with other diabetic kidney complication; R80.9 - Proteinuria, unspecified Plan: Stressed importance of medication compliance . Restarted back on metformin 500 mg per tablet to take once a day in a.m. with breakfast. Advised to checks fasting glucose levels morning and night, before eating and keep a record of it. Reinforced diabetic diet and regular exercise with patient. Counseled regarding importance of yearly diabetes retinopathy screening. Patient advised to inspect feet daily, for any signs of injury, callus or infection. Compliance with diet and regular exercise again stressed. Blood pressure goal is less than 130/80, goal LDL is less than 100 and goal hemoglobin A1c is less than 7% follow-up appointment made in-3--months, after fasting labs done. (4) Vitamin D deficiency: Code(s): E55.9 - Vitamin D deficiency, unspecified Plan: Restarted back on vitamin-D 3 [place] [address] units per capsule to take once a week for the next 3 months. Will check another vitamin-D level in 3 month (5) Noncompliance with medication regimen: Code(s): Z91.148 - Patient's other noncompliance with medication regimen for other reason Orders: Orders US appendix Today E11.29 - Type 2 diabetes mellitus with other diabetic kidney complication, E78.5 - Hyperlipidemia, unspecified, R10.31 - Right lower quadrant pain, R80.9 - Proteinuria, unspecified Hemoglobin A1c 3 Months E11.29 - Type 2 diabetes mellitus with other diabetic kidney complication, E55.9 - Vitamin D deficiency, unspecified, E78.5 - Hyperlipidemia, unspecified, R80.9 - Proteinuria, unspecified Lipid Panel 3 Months E11.29 - Type 2 diabetes mellitus with other diabetic kidney complication, E55.9 - Vitamin D deficiency, unspecified, E78.5 - Hyperlipidemia, unspecified, R80.9 - Proteinuria, unspecified Microalbumin, Random (w Creat) 3 Months E11.29 - Type 2 diabetes mellitus with other diabetic kidney complication, E55.9 - Vitamin D deficiency, unspecified, E78.5 - Hyperlipidemia, unspecified, R80.9 - Proteinuria, unspecified Alanine Aminotransferase 3 Months E11.29 - Type 2 diabetes mellitus with other diabetic kidney complication, E55.9 - Vitamin D deficiency, unspecified, E78.5 - Hyperlipidemia, unspecified, R80.9 - Proteinuria, unspecified Aspartate Amino Transferase 3 Months E11.29 - Type 2 diabetes mellitus with other diabetic kidney complication, E55.9 - Vitamin D deficiency, unspecified, E78.5 - Hyperlipidemia, unspecified, R80.9 - Proteinuria, unspecified Basic Metabolic Panel Fasting 3 Months E11. - Type 2 diabetes mellitus with other diabetic kidney complication, E55.9 - Vitamin D deficiency, unspecified, E78.5 - Hyperlipidemia, unspecified, R80.9 - Proteinuria, unspecified Vitamin D 25-OH Total 3 Months E11. - Type 2 diabetes mellitus with other diabetic kidney complication, E55.9 - Vitamin D deficiency, unspecified, E78.5 - Hyperlipidemia, unspecified, R80.9 - Proteinuria, unspecified AMB Hemoglobin A1c Today Z13.9 - Encounter for screening, unspecified Medications: Refilled cholecalciferol (vitamin D3) 1,250 mcg PO QWEEK 3 months 13 caps 0RF E55.9 - Vitamin D deficiency, unspecified Coding Level of Care Code Est Pt Level 4 (00666) Diagnoses Right lower quadrant abdominal pain R10.31 Dyslipidemia E78.5 Diabetes mellitus with microalbuminuria, without long-term current use of insulin E11.; R80.9 Vitamin D deficiency E55.9 Noncompliance with medication regimen Z91.148
== END 2022-09-28 14:41 | disposition home or self-care (01) ==
PROVIDERS: PCP Internal Medicine; Visit Provider Internal Medicine
DX: R10.31 Right lower quadrant pain (principal); E78.5 Hyperlipidemia, unspecified; E11.29 Type 2 diabetes mellitus with other diabetic kidney complication; E55.9 Vitamin D deficiency, unspecified; R80.9 Proteinuria, unspecified; Z91.148 Patient's other noncompliance with medication regimen for other reason
CPT/HCPCS: 83036; 99214

== ENCOUNTER 2022-09-28 14:50 | Outpatient (REF) | payer MEDICARE, MEDICAID, SELFPAY ==
--- NOTE | ~2022-09-28 | US_ITS ---
EXAMINATION: US APPENDIX CLINICAL INFORMATION: Right lower quadrant pain, rule out appendicitis. COMPARISON: None TECHNIQUE: Linear transducer grayscale and color Doppler examination with attention to the region of the abdominal right lower quadrant. FINDINGS: RIGHT LOWER QUADRANT: Appendix is not confidently identified. No abnormality seen in the right lower quadrant. Color Doppler showed no abnormal vascular flow. OTHER: Urinary bladder is moderately distended without focal abnormality. The right kidney measures 10.8 cm without abnormality. The visualized liver shows diffuse increased echotexture. US/US appendix IMPRESSION: 1. Nonvisualization of the appendix. No overt evidence for acute abnormality in the right lower quadrant. If symptoms persist or worsen, further evaluation with a CT scan of the abdomen and pelvis is recommended. 2. Hepatic steatosis.
== END 2022-09-28 14:51 | disposition home or self-care (01) ==
LOC: HO.HMGCX 14:50
PROVIDERS: PCP Internal Medicine; Visit Provider Internal Medicine
DX: E11.29 Type 2 diabetes mellitus with other diabetic kidney complication (principal); R10.31 Right lower quadrant pain; E78.5 Hyperlipidemia, unspecified; R80.9 Proteinuria, unspecified
CPT/HCPCS: 76705

== ENCOUNTER 2022-10-21 06:44 | Emergency (ER) | payer OTHER, SELFPAY ==
--- NOTE | ~2022-10-21 | XR_ITS ---
EXAMINATION: XR CHEST CLINICAL INFORMATION: Chest wall pain COMPARISON: Chest radiograph from 04/18/2019 TECHNIQUE: 2 views of the chest were obtained. FINDINGS: No focal consolidation. No pneumothorax. Trachea is midline. Cardiac mediastinal silhouette is not enlarged. No large pleural effusion. Degenerative changes of the thoracolumbar spine. Soft tissues are unremarkable. XR/XR chest 2V IMPRESSION: No acute cardiopulmonary process.
[2022-10-21 06:58] VITALS: BP 134/57; PULSE 63; RESP 19; TEMP 36.1; O2SAT 97; BMI 26.5
--- NOTE | 2022-10-21 07:07 | ECG_ITS ---
Test Reason : DYSPNEA Blood Pressure : / mmHG Vent. Rate : 057 BPM Atrial Rate : 057 BPM P-R Int : 188 ms QRS Dur : 092 ms QT Int : 422 ms P-R-T Axes : 027 -04 010 degrees QTc Int : 410 ms Sinus bradycardia with sinus arrhythmia Minimal voltage criteria for LVH, may be normal variant ( R in aVL ) Borderline ECG When compared with ECG of 27-SEP-2011 07:17, Vent. rate has decreased BY 28 BPM Referred By: Maikol Machado Electronically Signed By:MERARI CORTEZ
--- NOTE | 2022-10-21 07:20 | ED_ITS ---
HPI - General Adult General Chief complaint: General Medical Stated complaint: requesting breathing treatment Time Seen by Provider: 10/21/22 07:08 Source: patient Mode of arrival: ambulatory Limitations: no limitations History of Present Illness HPI narrative: 82-year-old male with type 2 diabetes presents with shortness of breath and what he calls right-sided chest congestion. Symptoms started approximately 2 hours ago. Denies any pain but does have some shortness of breath. There is no clear relieving or exacerbating features. Denies any fevers or chills. Denies any cough or mucus production. Does complain of some mild sinus drainage. He typically takes Flonase for his symptoms. He did not take it this morning. Patient describes symptoms as moderate nature. Denies any lower extremity edema, orthopnea, PND. He denies any history of blood clots any reports being on aspirin therapy as well. Denies any recent surgeries, trauma or any forms of immobilization. He does report that he feels the air quality has been low around where he lives and he has been sleeping with his windows open. Denies any wheezing or stridor. Related Data Home Medications Medication Instructions Recorded Confirmed albuterol sulfate 90 mcg/actuation inhalation 11/30/19 03/18/22 aerosol inhaler tamsulosin 0.4 mg capsule 0.4 mg PO DAILY 11/03/20 03/18/22 finasteride 5 mg tablet 5 mg PO DAILY 07/08/21 03/18/22 Previous Rx's Medication Instructions Recorded lancets (Accu-Chek Softclix #100 ea 06/26/20 Lancets) loratadine 10 mg tablet 10 mg PO DAILY #90 tabs 06/02/21 fluticasone propionate 50 1 spray intranasal DAILY #48 mL 07/11/21 mcg/actuation nasal spray,suspension blood sugar diagnostic (Accu-Chek #100 ea 07/20/21 Glenys Plus test strips) allopurinol 100 mg tablet 100 mg PO DAILY #90 tabs 03/11/22 atorvastatin 10 mg tablet 10 mg PO DAILY #90 tabs 07/30/22 metformin 500 mg tablet 500 mg PO BIDWMEAL #200 tabs 09/02/22 cholecalciferol (vitamin D3) 1,250 1,250 mcg PO QWEEK 3 months #13 09/28/22 mcg (50,000 unit) capsule caps azithromycin 250 mg tablet See Rx Instructions PO .COMPLEX #6 10/21/22 tabs Allergies Allergy/AdvReac Type Severity Reaction Status Date / Time penicillin V Allergy Unknown itching Verified 10/21/22 06:58 Review of Systems 2 Review of Systems: CONSTITUTIONAL: Denies weight loss, fever and chills. HEENT: Denies changes in vision and hearing. RESPIRATORY: + SOB - cough. CV: Denies palpitations no CP. GI: Denies abdominal pain, nausea, vomiting and diarrhea. : Denies dysuria and urinary frequency. MSK: Denies myalgia and joint pain. SKIN: Denies rash and pruritus. NEUROLOGICAL: Denies headache and syncope. PSYCHIATRIC: Denies recent changes in mood. Denies anxiety and depression. All other ROS are negative unless in HPI PMFSH Past Medical History Medical History Noncompliance with medication regimen Vitamin D deficiency Allergic rhinitis Gout Benign prostatic hyperplasia Dyslipidemia Diabetes mellitus with microalbuminuria, without long-term current use of insulin Surgical History Hx of cholecystectomy History of bladder surgery Family History Family History Father HTN (hypertension) Son Diabetes mellitus Daughter No problems noted. Daughter No problems noted. Daughter No problems noted. Social History Social History Housing: House Alcohol intake: never Patient Tobacco Use Status: Former Tobacco user Years Smoked: 12 yrs Smoked in Last 30 Days: No e-Cigarette/Vaping Use: Never Used Use of substances other than those prescribed or required for medical reasons: No Advance Directives: Yes Advance Directives Information Provided: No Advance Directives on File: No Current occupational status: retired Cognitive needs: No Hearing needs: No Vision needs: Yes Physical Exam ED Vital Signs: Vital Signs - 24 hr 10/21/22 06:58 10/21/22 07:22 10/21/22 07:37 Temperature 97 F Pulse Rate 63 58 63 Respiratory Rate 19 16 16 Blood Pressure 134/57 L Pulse Oximetry 97 BMI result Body Mass Index 26.5 GEN: Well developed, no acute distress, alert, oriented HEENT: Normocephalic, atraumatic, normal external ears, nose appears normal, no oropharyngeal edema or exudates Eyes: Normal to appearance Neck: Supple, no lymphadenopathy Respiratory: Talks in complete sentences, no respiratory distress, clear to auscultation bilaterally Cardiovascular: Regular rate and rhythm, no murmurs rubs or gallops Abdomen: Soft, nontender, nondistended, no guarding, no rebound Back: No CVA tenderness Extremities: No clubbing cyanosis or edema Neurologic: No focal neurologic deficits, cranial nerves 2-12 intact, strength is 5/5 bilaterally Skin: No rash Course Course Course Narrative: The workup is complete. Laboratory analysis did not show any significant acute abnormalities. Chest x-ray did not reveal any acute cardiopulmonary disease. Patient may have an early bacterial bronchitis, viral syndrome her allergies. Will start the patient on azithromycin, recommend follow-up on Tuesday with his primary care provider. Medications Administered Discontinued Medications Generic Name Dose Route Start Last Admin Trade Name Freq PRN Reason Stop Dose Admin Albuterol/Ipratropium 3 ml 10/21/22 07:31 10/21/22 07:36 Albuterol/Iprat 2.5/0.5mg 3 Ml Ampul.Neb INHALE 10/21/22 07:32 3 ml ONCE ONE Administration Medical Decision Making Medical Decision Making [facility] Narrative: 80-year-old male with type 2 diabetes not on insulin therapy presents with right-sided chest congestion and shortness of breath that started 2 hours prior to arrival. On exam, he is hemodynamically stable, normal oxygen saturation. He is breathing slightly faster than he ought to. Has no lower extremity edema. Pulmonary exam was normal. At this point, differential diagnosis could include influenza, COVID, bronchitis, pneumonia, CHF, reactive airway disease. My plan will be to obtain an EKG to rule out any evidence of cardiac ischemia, chest x- ray to rule out any evidence of infection or CHF. Will check laboratory analysis to rule out anemia or other electrolyte abnormality or renal insufficiency. I will also order respiratory therapy to do an evaluation and provide any appropriate treatment at bite be helpful. Should anything significant show up on his workup, patient may warrant hospitalization. At this point, he appears quite stable. Differential Diagnosis Differential Diagnoses: The differential diagnosis associated with the presentation includes (See above) Admission/Observation Consideration of admission/observation: Escalation of care including admission/observation considered Lab Data [facility] Lab Attestation statement: I reviewed the patient's lab results. 10/21/22 07:25 10/21/22 07:25 Labs: Lab Results 10/21/22 Range/Units 07:25 WBC 9.0 (4.8-10.8) X10*3/uL RBC 4.32 L (4.60-5.80) X10*6/uL Hgb 14.0 (14.0-18.0) g/dl Hct 40.4 L (42.0-52.0) % MCV 93.5 (80.0-98.0) fL MCH 32.4 (27.0-33.0) pg MCHC 34.7 (31.0-36.0) g/dl RDW 12.3 (11.0-16.0) % Plt Count 195 (160-400) X10*3/uL MPV 9.0 L (9.4-12.4) fL Immature Gran % (Auto) 0.3 (0.0-0.4) % Neut % (Auto) 68.0 (45-73) % Lymph % (Auto) 24.1 (20-40) % [place] % (Auto) 6.2 (2-11) % Eos % (Auto) 1.2 (0-4) % Baso % (Auto) 0.2 (0-2) % Lymph # (Auto) 2.2 (1.2-4.9) X10*3/uL [place] # (Auto) 0.6 (0.1-1.2) X10*3/uL Eos # (Auto) 0.1 (0.0-0.4) X10*3/uL Baso # (Auto) 0.0 (0.0-0.2) X10*3/uL Abs Immat Gran (auto) 0.03 (0.00-0.03) X10*3/uL Absolute Neuts (auto) 6.1 (2.0-8.3) x10*3/uL Absolute Nucleated RBC 0.000 (0.0-0.012) X10*3/uL Nucleated RBC % (auto) 0.0 (0.0-0.2) /100WBC Sodium 140 (135-145) mmol/L Potassium 4.1 (3.3-5.1) mmol/L Chloride 108 (96-108) mmol/L Carbon Dioxide 24 (22-29) mmol/L Anion Gap 12 (12-20) BUN 19 H (9-16) mg/dL Creatinine 1.04 (0.5-1.4) mg/dL Estim Creat Clear Calc 52.9 Estimated GFR > 60 Random Glucose 171 H (60-115) mg/dL Calcium 9.6 (8.4-10.2) mg/dL Troponin I High Sens < 2.7 (<3.5-35.0) ng/L COVID-19 (ERIKA) Negative (Negative) COVID-19 Clin Com See Note Influenza Type A (CARLOS) Negative (Negative) Influenza Type B (CARLOS) Negative (Negative) Influenza A & B Note See Note Independent Interpretation I performed an independent interpretation of an: EKG (Sinus bradycardia heart rate 57, nonspecific T-wave changes, no acute ST elevations depressions, normal intervals.) and Plain X-Ray (Chest: No acute cardiopulmonary disease, no cardiomegaly, no pleural effusions, no CHF no, discrete infiltrates) External Record Review External record reviewed: Office record Prescription Management I considered prescription management with: Antiviral and Antibiotic Chronic Conditions Patient?s care impacted by: Diabetes Discharge Plan Discharge Clinical Impression: Acute dyspnea Patient Disposition: Home, Self-Care Instructions: Dyspnea (ED) Prescriptions: New azithromycin 250 mg tablet See Rx Instructions .ROUTE .COMPLEX Qty: 6 0RF Rx Instructions: For 250 mg dose pack: take 500 mg today (day 1), then 250 mg for 4 days (days 2-5) No Action (DME) lancets [Accu-Chek Softclix Lancets] Misc See Rx Instructions .ROUTE .MEDSUPPLY Qty: 100 3RF Rx Instructions: use 1 lancet twice a day to test blood sugar loratadine 10 mg tablet 10 mg PO DAILY Qty: 90 3RF fluticasone propionate 50 mcg/actuation spray,suspension 1 spray intranasal DAILY Qty: 48 2RF (DME) Accu-Chek Glenys Plus test strp Strip See Rx Instructions .ROUTE .MEDSUPPLY Qty: 100 3RF Rx Instructions: use 1 strip twice a day to test blood sugar allopurinol 100 mg tablet 100 mg PO DAILY Qty: 90 1RF atorvastatin 10 mg tablet 10 mg PO DAILY Qty: 90 1RF metformin 500 mg tablet 500 mg PO BIDWMEAL Qty: 200 1RF tamsulosin 0.4 mg capsule 0.4 mg PO DAILY albuterol sulfate 90 mcg/actuation HFA aerosol inhaler inhalation finasteride 5 mg tablet 5 mg PO DAILY cholecalciferol (vitamin D3) 1,250 mcg (50,000 unit) capsule 1,250 mcg PO QWEEK 90 Days Qty: 13 0RF Referrals: Physician,Unknown J [Physician] - (Primary care provider in 3-5 days)
[2022-10-21 07:22] VITALS: PULSE 58; RESP 16
--- NOTE | 2022-10-21 07:23 | PC.NURSE ---
pt a&ox3. respirations even and unlabored. pt reports waking up at 3am this morning with right sided chest pain. pt reports the pain comes and goes. pt denies radiation of the pain. pt lung sounds clear bilaterally. pt normal sinus on tele.
--- NOTE | 2022-10-21 07:28 | MHC.EDTECH ---
EKG completed and signed by attending physician. Labs/covid and flu swab collected and sent to lab
[2022-10-21 07:31] LABS: MANUAL DIFF FLAG NO
[2022-10-21 07:34] LABS: Basophils Percent Auto 0.2 % (0-2); Eosinophils Absolute Auto 0.1 X10*3/uL (0.0-0.4); Eosinophils Percent Auto 1.2 % (0-4); Hematocrit 40.4 % (42.0-52.0); Imm Gran Abs Auto 0.03 X10*3/uL (0.00-0.03); Imm Gran Pct Auto 0.3 % (0.0-0.4); Lymphocytes Absolute Auto 2.2 X10*3/uL (1.2-4.9); Lymphocytes Percent Auto 24.1 % (20-40); Mean Corpuscular HGB Conc 34.7 g/dl (31.0-36.0); Mean Corpuscular Hemoglobin 32.4 pg (27.0-33.0); Mean Corpuscular Volume 93.5 fL (80.0-98.0); Monocytes Absolute Auto 0.6 X10*3/uL (0.1-1.2); Monocytes Percent Auto 6.2 % (2-11); Neutrophils Absolute Auto 6.1 x10*3/uL (2.0-8.3); Platelet Count 195 X10*3/uL (160-400); Red Blood Count 4.32 X10*6/uL (4.60-5.80); Red Cell Distribution Width 12.3 % (11.0-16.0)
[2022-10-21] MEDS: Albuterol/Iprat 2.5/0.5MG 3 ML AMPUL.NEB INHALE (07:36)
[2022-10-21 07:37] VITALS: PULSE 63; RESP 16; O2SAT 93
[2022-10-21 07:45] LABS: Anion Gap 12 (12-20); Blood Urea Nitrogen 19 mg/dL (9-16); Calcium 9.6 mg/dL (8.4-10.2); Carbon Dioxide 24 mmol/L (22-29); Chloride 108 mmol/L (96-108); Creatinine Clr Calc Pharmacy 52.9; Estimated Glomerular Filt Rate > 60; Glucose Random 171 mg/dL (60-115); Potassium 4.1 mmol/L (3.3-5.1); Sodium 140 mmol/L (135-145)
[2022-10-21 07:51] LABS: IDNOW Serial# BCCEAD1C
[2022-10-21 07:52] LABS: COVID-19 Test Negative (Negative)
[2022-10-21 07:54] LABS: Troponin-I High Sensitivity < 2.7 ng/L (<3.5-35.0)
[2022-10-21 07:56] LABS: IDNOW Serial# 9DB6401D; Influenza A Negative (Negative); Influenza B2 Negative (Negative)
== END 2022-10-21 09:51 | disposition home or self-care (01) ==
PROVIDERS: Emergency Provider Emergency Medicine; PCP Internal Medicine
DX: R06.00 Dyspnea, unspecified (principal); Z20.822 Contact with and (suspected) exposure to COVID-19; R06.02 Shortness of breath; E11.9 Type 2 diabetes mellitus without complications; E78.5 Hyperlipidemia, unspecified; Z79.899 Other long term (current) drug therapy; Z79.84 Long term (current) use of oral hypoglycemic drugs; Z87.891 Personal history of nicotine dependence
CPT/HCPCS: 71046; 80048; 84484; 85025; 87502; 87635; 93005; 94640; 99284; 99285

== ENCOUNTER 2023-01-03 08:39 | Outpatient (REF) | payer OTHER, SELFPAY ==
[2023-01-03 11:43] LABS: Estimated Average Glucose 169 mg/dL; Hemoglobin A1c % 7.5 % (<6.0)
[2023-01-03 11:59] LABS: Alanine Aminotransferase 18 U/L (0-40); Anion Gap 10 (12-20); Aspartate Amino Transferase 17 U/L (5-37); Blood Urea Nitrogen 17 mg/dL (9-16); Calcium 9.5 mg/dL (8.4-10.2); Carbon Dioxide 28 mmol/L (22-29); Chloride 104 mmol/L (96-108); Cholesterol 188 mg/dL (<200); Estimated Glomerular Filt Rate > 60; Glucose Fasting 175 mg/dL (60-99); HDL Cholesterol 50 mg/dL (>40); LDL Cholesterol Calculated 111 mg/dL (<100); Potassium 4.1 mmol/L (3.3-5.1); Sodium 138 mmol/L (135-145); Triglycerides 137 mg/dL (<150)
[2023-01-03 12:01] LABS: Vitamin D 25-OH Total 14.7 ng/mL (>30)
[2023-01-03 12:16] LABS: Creatinine Urine 69.01 mg/dL
== END 2023-01-03 08:40 | disposition home or self-care (01) ==
LOC: HO.HMGCLDS 08:39
PROVIDERS: PCP Internal Medicine; Visit Provider Internal Medicine
DX: E55.9 Vitamin D deficiency, unspecified (principal); E78.5 Hyperlipidemia, unspecified; E11.29 Type 2 diabetes mellitus with other diabetic kidney complication; R80.9 Proteinuria, unspecified
CPT/HCPCS: 36415; 80048; 80061; 82043; 82306; 82570; 83036; 84450; 84460

== ENCOUNTER 2023-02-01 13:33 | Outpatient (AMB) | payer OTHER, SELFPAY ==
--- NOTE | 2023-02-01 13:39 | MHC.PC.OV ---
Vital Signs 02/01/23 13:42 Height 5 ft 8 in Weight 173 lb BMI 26.3 BP 118/64 Blood Pressure Location Rt brachial Position Sitting Pulse 69 Pulse Source Pulse Oximeter Pulse Oximetry (%) 98 Oxygen Delivery Method Room Air Intake Visit Reasons: Annual PE/DM/OK per Dr. Valdez Intake Note: Pt is here today for his PE Allergies penicillin V Allergy (Unknown, Verified 02/01/23 13:59) itching Medication List - Last Reconciled 02/01/23 by Kelsy Valdez MD albuterol sulfate 90 mcg/actuation inhalation allopurinol 100 mg PO DAILY atorvastatin 10 mg PO DAILY blood sugar diagnostic (Accu-Chek Glenys Plus test strips) use 1 strip twice a day to test blood sugar finasteride 5 mg PO DAILY fluticasone propionate 50 mcg/actuation 1 spray intranasal DAILY lancets (Accu-Chek Softclix Lancets) use 1 lancet twice a day to test blood sugar loratadine 10 mg PO DAILY metformin 500 mg PO BIDWMEAL tamsulosin 0.4 mg PO DAILY Tobacco use date assessed: 02/01/23 Fall risk assessment: No Falls in past year Last assessed Fall Risk: 02/01/23 Dental Screening Dental Screen Date: 02/01/23 Did you have a dental visit in the last 12 months?: Yes Did you have a dental problem in the last 6 months where you did not have access to dental care?: No Was dental information given to patient?: Patient has dentist HPI Annual PE/DM/OK per Dr. Valdez HPI Details 83-year-old male with diabetes mellitus, dyslipidemia, benign prostatic hyperplasia, here today for his physical exam and follow-up. Patient states that he has been feeling well, with no complaints at present time. Has not yet had his flu vaccine for this year, refused to get COVID vaccination. Up-to-date with his pneumonia vaccine and Tdap. [facility] Medical History Noncompliance with medication regimen Vitamin D deficiency Allergic rhinitis Gout Benign prostatic hyperplasia Dyslipidemia Diabetes mellitus with microalbuminuria, without long-term current use of insulin Surgical History Hx of cholecystectomy History of bladder surgery Family History Father HTN (hypertension) Son Diabetes mellitus Daughter No problems noted. Daughter No problems noted. Daughter No problems noted. Social History Housing: House Alcohol intake: never Patient Tobacco Use Status: Former Tobacco user Years Smoked: 12 yrs e-Cigarette/Vaping Use: Never Used Current occupational status: retired Cognitive needs: No Hearing needs: No Vision needs: Yes Questionnaire PHQ-9 Over the last 2 weeks, how often have you been bothered by any of the following problems? 1. Little interest or pleasure in doing things: not at all 2. Feeling down, depressed, or hopeless: not at all 3. Trouble falling or staying asleep, or sleeping too much: not at all 4. Feeling tired or having little energy: not at all 5. Poor appetite or overeating: not at all 6. Feeling bad about yourself - or that you are a failure or have let yourself or your family down: not at all 7. Trouble concentrating on things, such as reading the newspaper or watching television: not at all 8. Moving or speaking so slowly that other people could have noticed. Or the opposite - being so fidgety or restless that you have been moving around a lot more than usual: not at all 9. Thoughts that you would be better off or of hurting yourself in some way: not at all Total score: 0 Depression Screening Interpretation: Negative Depression Screening Done: Yes 36734 - PHQ-9 Billing: Yes Source: Developed by Drs. Federico Ramirez, Kiley Ho, José Antonio Head and colleagues, with an educational roseann from [employer]. Thrive Questionnaire Date Thrive assessed: 02/01/23 I am a: Patient What is your living situation today?: I have a steady place to live Within the past 12 months, did the food you bought not last and you didn't have the money to get more?: Never true Within the past 12 months, did you worry whether your food would run out before you got money to buy more?: Never true Do you have trouble paying for medicines?: No Do you have trouble getting transportation to medical appointments?: No Do you have trouble paying your heating and electricity bill?: No Do you have trouble taking care of your child, family member or friend?: No Do you have trouble with day-to-day activities such as bathing, preparing meals, shopping, managing finances, etc.?: No Are you currently unemployed and looking for a job?: No Are you interested in more education?: No AUDIT C Alcohol Use Questionnaire (AUDIT-C) 1. How often do you have a drink containing alcohol?: Never Total Score: 0 KARTHIK-7 AMB Questionnaire KARTHIK-7 Date KARTHIK - 7 assessed: 02/01/23 Feeling nervous, anxious, or on edge: 0 = Not at all Not being able to stop or control worryin = Not at all Worrying too much about different things: 0 = Not at all Trouble relaxin = Not at all Being so restless that it is hard to sit still: 0 = Not at all Becoming easily annoyed or irritable: 0 = Not at all Feeling afraid as if something awful might happen: 0 = Not at all Total KARTHIK-7 score (0-4 normal; 5-9 mild; 10-14 moderate; 15-21 severe): 0 Source: Developed by Drs. Federico Ramirez, Kiley Ho, José Antonio Head and colleagues, with an educational roseann from [employer]. KARTHIK-7 Assessment Billing KARTHIK-7 Assessment Tool: KARTHIK-7 Assessment 92185 Review of Systems Const Reports no additional complaints, Denies fatigue and Denies fever(s) Eyes Reports no additional complaints and Reports requires corrective lenses ENT Reports no additional complaints Card Denies chest pain, Denies chest pain with activity, Denies rapid heart rate, Denies edema, Denies lightheadedness, Denies dyspnea and Denies dyspnea on exertion Resp Denies cough, Denies dyspnea and Denies dyspnea on exertion GI Reports as per HPI, Denies melena, Denies hematochezia and Denies heartburn Reports no additional complaints Musc Reports no additional complaints Skin/Breast Denies lesions and Denies rash Neuro Reports no additional complaints Psych Reports no additional complaints Endo Denies fatigue, Denies polyphagia, Denies polydipsia and Denies polyuria Ronaldo/Lymph Denies easy bleeding and Denies easy bruising Aller/Immun Reports no additional complaints Physical exam (Primary Care) Vital Signs: Last Vital Signs Pulse 69 02/01/23 13:42 BP 118/64 02/01/23 13:42 Pulse Ox 98 02/01/23 13:42 Oxygen Delivery Method Room Air 02/01/23 13:42 BMI result Body Mass Index 26.3 Tobacco/Smoking Status: Tobacco use Status Tobacco use date assessed 02/01/23 02/01/23 13:46 Patient Tobacco Use Status Former Tobacco user 02/01/23 13:46 e-Cigarette/Vaping Use Never Used 02/01/23 13:46 PHQ-9: PHQ-9 Score PHQ-9: Total score 0 03/02/23 21:39 Depression Screening Interpretation: Negative Thrive Assessment: Date of Thrive Assessment Date Thrive assessed 02/01/23 02/01/23 13:46 Const General: comfortable, no acute distress and Physically active Nutritional Appearance: overweight Orientation/consciousness: patient oriented x3 HENMT Head: Yes normocephalic Mouth: Normal oral and palatal mucosa present and moist mucous membranes Eyes General: appearance normal, both eyes and all related structures Neck Neck: Yes full ROM, Yes no lymphadenopathy and Yes supple Resp Effort & Inspection: normal respiratory effort Auscultation: clear to auscultation bilaterally GI Palpation (GI): Soft to palpation, Tenderness to palpation present (GI) (Right lower quadrant) Rovsing's sign negative, no guarding and no masses Auscultation: normal bowel sounds General: Yes no CVA tenderness Back/Spine/Pelvis Back: no CVA tenderness and No back tenderness Skin General skin exam: no rashes or lesions noted Neuro General: patient oriented x3, gait normal, tone normal, moves all extremities and no focal motor deficits Extrem General: Yes no clubbing, cyanosis or edema Psych Appearance: grossly normal and well kempt Mental Status: mental status grossly normal Speech and movement: Normal speech and movement present Affect: normal affect Attitude: cooperative Thought process: Normal thought process present Thought content: Normal thought content present Results Reviewed Results Reviewed: Name: Anderson Sampson Age/Sex: 82/M : 1940 Unit#: [id number] Attend Dr: Kelsy Valdez MD Re01/03/23 Status: DEP REF Location: [facility] Disch: SPEC : [id number] MIGUEL: 01/03/23 STATUS: COMP REQ : [id number] RECD: 01/03/[address]: Kelsy Valdez MD COMP: 01/03/23 ENTERED: 01/03/[address] [facility] [address]: ORDERED: Met Prof Fast, AST, ALT, Lipid Panel, Vitamin D 25-OH Test Result Flag Reference Site Sodium 138 135-145 mmol/L Potassium 4.1 3.3-5.1 mmol/L CL 104 96-108 mmol/L CO2 28 22-29 mmol/L Gap 10 L 12-20 BUN 17 H 9-16 mg/dL Creat 1.02 0.5-1.4 mg/dL EGFR > 60 NOTE: For -[place] individuals, multiply the result by 1.210. Chronic Kidney Disease: Estimated GFR < 60 mL/min/1.73m2 Severe Kidney Disease: Estimated GFR < 15 mL/min/1.73m2 FBS 175 H 60-99 mg/dL A fasting glucose of 126 mg/dl or greater on more than one occasion is considered diagnostic of diabetes. CA 9.5 8.4-10.2 mg/dL AST (GOT) 17 5-37 U/L ALT (GPT) 18 0-40 U/L Triglyceride 137 <150 mg/dL Desirable Triglyceride: less than 150 mg/dL Borderline High Triglyceride 150-199 mg/dL High Triglyceride: 200-499 mg/dL Very High Triglyceride: greater than or equal to 5OO mg/dL Cholesterol 188 <200 mg/dL Desirable Cholesterol: less than 200 mg/dL Borderline High Cholesterol: 200-239 mg/dL High Cholesterol: greater than 239 mg/dL LDL Calculated 111 H <100 mg/dL Desirable LDL: less than 100 mg/dL Near Optimal/Above Optimal LDL: 110-129 mg/dL Borderline High LDL: 130-159 mg/dL High LDL: 160-189 mg/dL Very High LDL: greater than or equal to 190 mg/dL HDL 50 >40 mg/dL Desirable HDL: greater than 40 mg/dL Note: This HDL assay may give artificially low results in patients with liver disease. Vit D 25-OH Tot 14.7 L >30 ng/mL Health Based Reference Values* < 20 ng/mL Deficient 20-30 ng/mL Insufficient > 30 ng/mL Sufficient Laboratory Tests 01/03/23 08:45 Estimat Average Glucose 169 Hemoglobin A1c % 7.5 H Urine Creatinine 69.01 Urine Microalbumin 78.0 Microalb/Creat Ratio 113.0 H Assessment and Plan Assessment & Plan (1) Annual visit for general adult medical examination with abnormal findings: Code(s): Z00.01 - Encounter for general adult medical examination with abnormal findings Plan: Recent fasting lab results reviewed with patient.. Recommended dental visit every 6 months and regular eye exams yearly with diabetics retinopathy check . Instructed to do self-testicular exam check for any mass. (2) Vitamin D deficiency: Code(s): E55.9 - Vitamin D deficiency, unspecified Plan: Recent labs showed low vitamin-D level. Rest prescription sent for cholecalciferol at 1250 mg per capsule to take once a week for the next 3 months (3) Benign prostatic hyperplasia: Code(s): N40.0 - Benign prostatic hyperplasia without lower urinary tract symptoms Plan: Current tamsulosin 0.4 mg daily (4) Dyslipidemia: Code(s): E78.5 - Hyperlipidemia, unspecified Plan: LDL cholesterol not at goal. Increased dose of atorvastatin to to 20 mg daily, adherence to low-cholesterol diet and getting regular exercise strongly encouraged. Recheck another fasting lipid panel in 3 months (5) Diabetes mellitus with microalbuminuria, without long-term current use of insulin: Code(s): E11.29 - Type 2 diabetes mellitus with other diabetic kidney complication; R80.9 - Proteinuria, unspecified Plan: Latest hemoglobin A1c is at 7.6%. Acceptable for his age. Will continue on med for 500 mg 1 tablet twice a day with meals. And stressed adherence to diet and staying active. Patient reminded to get his diabetes retinopathy screening done, up-to-date with his podiatry follow-up, goes yearly Medications: New cholecalciferol (vitamin D3) 1,250 mcg PO QWEEK 13 caps 0RF 3 months Changed From atorvastatin 10 mg PO DAILY 90 tabs 1RF To atorvastatin 20 mg PO DAILY 90 tabs 1RF Refilled metformin 500 mg PO BIDWMEAL 200 tabs 1RF E11.29 - Type 2 diabetes mellitus with other diabetic kidney complication, R80.9 - Proteinuria, unspecified loratadine 10 mg PO DAILY 90 tabs 3RF Coding Level of Care Code Est Pt Prev Care >65y(75038) Diagnoses Annual visit for general adult medical examination with abnormal findings Z00.01 Vitamin D deficiency E55.9 Benign prostatic hyperplasia N40.0 Dyslipidemia E78.5 Diabetes mellitus with microalbuminuria, without long-term current use of insulin E11.29; R80.9 Additional Codes KARTHIK-7 Assessment Billing - KARTHIK-7 Assessment Tool: KARTHIK-7 Assessment [id number] ([id number])
[2023-02-01 13:42] VITALS: BP 118/64; PULSE 69; O2SAT 98; BMI 26.3
== END 2023-02-01 14:21 | disposition home or self-care (01) ==
PROVIDERS: PCP Internal Medicine; Visit Provider Internal Medicine
DX: Z00.00 Encounter for general adult medical examination without abnormal findings (principal); E11.29 Type 2 diabetes mellitus with other diabetic kidney complication; E55.9 Vitamin D deficiency, unspecified; N40.0 Benign prostatic hyperplasia without lower urinary tract symptoms; E78.5 Hyperlipidemia, unspecified; R80.9 Proteinuria, unspecified
CPT/HCPCS: 99397

== ENCOUNTER 2023-05-07 16:23 | Emergency (ER) | payer OTHER, SELFPAY ==
--- NOTE | ~2023-05-07 | XR_ITS ---
EXAMINATION: XR CHEST CLINICAL INFORMATION: Cough COMPARISON: Chest radiograph 10/21/2022 TECHNIQUE: 2 views of the chest were obtained. FINDINGS: No significant abnormality is noted involving the heart, lungs, mediastinum, bony thorax or soft tissues. XR/XR chest 2V IMPRESSION: Unremarkable examination.
[2023-05-07 17:09] VITALS: BP 134/71; PULSE 71; RESP 18; TEMP 37.4; O2SAT 97; BMI 26.7
--- NOTE | 2023-05-07 17:12 | ED.GENADULT ---
HPI - General Adult General Chief complaint: Upper Respiratory Symptoms Stated complaint: ? sinus infection, congested cough Time Seen by Provider: 05/07/23 19:04 History of Present Illness HPI narrative: Patient complains of cough and runny nose off and on for 2 weeks, worse past few days He denies chest pain denies shortness of breath denies fever denies dizziness denies confusion denies headache denies stiff neck denies sore throat, no abdominal pain no nausea vomiting or diarrhea no d Related Data Home Medications Medication Instructions Recorded Confirmed albuterol sulfate 90 mcg/actuation inhalation 11/30/19 03/18/22 aerosol inhaler tamsulosin 0.4 mg capsule 0.4 mg PO DAILY 11/03/20 03/18/22 finasteride 5 mg tablet 5 mg PO DAILY 07/08/21 03/18/22 Previous Rx's Medication Instructions Recorded lancets (Accu-Chek Softclix #100 ea 06/26/20 Lancets) blood sugar diagnostic (Accu-Chek #100 ea 07/20/21 Glenys Plus test strips) allopurinol 100 mg tablet 100 mg PO DAILY #90 tabs 03/11/22 fluticasone propionate 50 1 spray intranasal DAILY #48 mL 12/17/22 mcg/actuation nasal spray,suspension atorvastatin 20 mg tablet 20 mg PO DAILY #90 tabs 02/01/23 loratadine 10 mg tablet 10 mg PO DAILY #90 tabs 02/01/23 metformin 500 mg tablet 500 mg PO BIDWMEAL #200 tabs 02/01/23 cholecalciferol (vitamin D3) 1,250 1,250 mcg PO QWEEK 3 months #13 05/02/23 mcg (50,000 unit) capsule caps doxycycline hyclate 100 mg tablet 100 mg PO BID 7 days #14 tabs 05/07/23 Allergies Allergy/AdvReac Type Severity Reaction Status Date / Time penicillin V Allergy Unknown itching Verified 02/01/23 13:59 PMF Past Medical History Source: nursing notes reviewed Medical History Noncompliance with medication regimen Vitamin D deficiency Allergic rhinitis Gout Benign prostatic hyperplasia Dyslipidemia Diabetes mellitus with microalbuminuria, without long-term current use of insulin Surgical History Hx of cholecystectomy History of bladder surgery Family History Family History Father HTN (hypertension) Son Diabetes mellitus Daughter No problems noted. Daughter No problems noted. Daughter No problems noted. Social History Social History Housing: House Alcohol intake: never Patient Tobacco Use Status: Former Tobacco user Years Smoked: 12 yrs e-Cigarette/Vaping Use: Never Used Advance Directives: No Advance Directives Information Provided: No Current occupational status: retired Cognitive needs: No Hearing needs: No Vision needs: Yes Physical Exam ED Vital Signs: Vital Signs - 24 hr 05/07/23 17:09 05/07/23 18:36 Temperature 99.3 F 98.7 F Pulse Rate 71 73 Respiratory Rate 18 18 Blood Pressure 134/71 136/74 Pulse Oximetry 97 97 Oxygen Delivery Method Room Air Room Air BMI result Body Mass Index 26.7 general appearance no distress The ears are normal tympanic membranes are normal no redness, canals are patent and clear The eyes no redness or discharge The pharynx is clear without redness swelling or exudate, voice is normal The neck is supple no lymphadenopathy Chest is clear to auscultation bilateral Heart no murmur Abdomen soft nontender Extremities full range motion x4 Neuro gait and balance are normal, interaction comprehension and expression are normal Skin no rash Course Course Course Narrative: Patient complains of runny nose body aches coug Chest x-ray and serology ordered This is rapid medical exam done in triage pending full evaluation and dispo by ER provider well-appearing patient with normal exam normal vitals who has had cough and cold symptoms off and on for over 2 weeks Chest x-ray negative COVID and flu tests negative Due to duration of symptoms a antibiotic doxycycline as prescribed for bronchitis and well-appearing patient is discharged Medical Decision Making Lab Data Labs: Lab Results 05/07/23 Range/Units 17:23 Influenza Type A (PCR) NEGATIVE (Negative) Influenza Type B (PCR) NEGATIVE (Negative) RSV RNA Qual (PCR) NEGATIVE (Negative) SARS-CoV-2 RNA (RT-PCR) NEGATIVE (Negative) Discharge Plan Discharge Clinical Impression: Bronchitis Patient Disposition: Home, Self-Care Additional Instructions: chest x-ray and COVID testing were normal Physical exam and vital signs were normal But as you had symptoms for quite some time we are trying an antibiotic for bronchitis called doxycycline Follow with primary doctor if not improved Return to the ER any time any worse condition or any concerns Prescriptions: New doxycycline hyclate 100 mg tablet 100 mg PO BID 7 Days Qty: 14 0RF No Action (DME) lancets [Accu-Chek Softclix Lancets] Misc See Rx Instructions .ROUTE .MEDSUPPLY Qty: 100 3RF Rx Instructions: use 1 lancet twice a day to test blood sugar (DME) Accu-Chek Glenys Plus test strp Strip See Rx Instructions .ROUTE .MEDSUPPLY Qty: 100 3RF Rx Instructions: use 1 strip twice a day to test blood sugar allopurinol 100 mg tablet 100 mg PO DAILY Qty: 90 1RF fluticasone propionate 50 mcg/actuation spray,suspension 1 spray intranasal DAILY Qty: 48 2RF cholecalciferol (vitamin D3) 1,250 mcg (50,000 unit) capsule 1,250 mcg PO QWEEK 90 Days Qty: 13 0RF tamsulosin 0.4 mg capsule 0.4 mg PO DAILY albuterol sulfate 90 mcg/actuation HFA aerosol inhaler inhalation finasteride 5 mg tablet 5 mg PO DAILY loratadine 10 mg tablet 10 mg PO DAILY Qty: 90 3RF atorvastatin 20 mg tablet 20 mg PO DAILY Qty: 90 1RF metformin 500 mg tablet 500 mg PO BIDWMEAL Qty: 200 1RF
[2023-05-07 18:05] LABS: Influenza A PCR NEGATIVE (Negative); Influenza B PCR NEGATIVE (Negative); Resp Syncy Virus RNA Qual PCR NEGATIVE (Negative); SARS COV2 PCR INHOUSE NEGATIVE (Negative)
[2023-05-07 18:36] VITALS: BP 136/74; PULSE 73; RESP 18; TEMP 37.1; O2SAT 97
[2023-05-07 19:21] VITALS: BP 153/98; PULSE 81; RESP 20; TEMP 36.7; O2SAT 98
== END 2023-05-07 19:23 | disposition home or self-care (01) ==
PROVIDERS: Physician Assistant Medical; Emergency Provider Emergency Medicine Emergency Medical Services; PCP Internal Medicine
DX: J40 Bronchitis, not specified as acute or chronic (principal); E11.9 Type 2 diabetes mellitus without complications; Z03.818 Encounter for observation for suspected exposure to other biological agents ruled out
CPT/HCPCS: 0241U; 71046; 99282; 99283

== ENCOUNTER 2023-05-21 10:39 | Outpatient (REF) | payer OTHER, SELFPAY ==
[2023-05-21 11:43] LABS: Estimated Average Glucose 177 mg/dL; Hemoglobin A1c % 7.8 % (<6.0)
[2023-05-21 12:12] LABS: Alanine Aminotransferase 18 U/L (0-40); Anion Gap 11 (12-20); Aspartate Amino Transferase 15 U/L (5-37); Blood Urea Nitrogen 16 mg/dL (9-16); Calcium 9.8 mg/dL (8.4-10.2); Carbon Dioxide 26 mmol/L (22-29); Chloride 107 mmol/L (96-108); Cholesterol 129 mg/dL (<200); Estimated Glomerular Filt Rate > 60; Glucose Fasting 167 mg/dL (60-99); HDL Cholesterol 44 mg/dL (>40); LDL Cholesterol Calculated 60 mg/dL (<100); Potassium 3.7 mmol/L (3.3-5.1); Sodium 140 mmol/L (135-145); Triglycerides 126 mg/dL (<150)
[2023-05-21 12:28] LABS: Vitamin D 25-OH Total 26.6 ng/mL (>30)
== END 2023-05-21 10:40 | disposition home or self-care (01) ==
LOC: HO.HMGCLDS 10:39
PROVIDERS: PCP Internal Medicine; Visit Provider Internal Medicine
DX: E11.29 Type 2 diabetes mellitus with other diabetic kidney complication (principal); R80.9 Proteinuria, unspecified; E78.5 Hyperlipidemia, unspecified; E55.9 Vitamin D deficiency, unspecified; M10.9 Gout, unspecified
CPT/HCPCS: 36415; 80048; 80061; 82306; 83036; 84450; 84460

== ENCOUNTER 2023-05-23 06:30 | Outpatient (REF) | payer OTHER, SELFPAY ==
[2023-05-23 12:09] LABS: Creatinine Urine 49.33 mg/dL; Microalbum/Creatinine Ratio Ur 441.9 ug/mg cr (<30)
== END 2023-05-23 06:31 | disposition home or self-care (01) ==
LOC: HO.HMGCLNP 06:30
PROVIDERS: PCP Internal Medicine; Visit Provider Internal Medicine
DX: E55.9 Vitamin D deficiency, unspecified (principal); E78.5 Hyperlipidemia, unspecified; E11.29 Type 2 diabetes mellitus with other diabetic kidney complication; R80.9 Proteinuria, unspecified; M10.9 Gout, unspecified
CPT/HCPCS: 82043; 82570

== ENCOUNTER 2023-08-28 15:45 | Emergency (ER) | payer OTHER, SELFPAY ==
--- NOTE | ~2023-08-28 | XR_ITS ---
EXAMINATION: XR CHEST CLINICAL INFORMATION: Cough with question of pneumonia COMPARISON: Chest radiograph 05/07/2023 TECHNIQUE: Frontal view of the chest was obtained. FINDINGS: Lungs are mildly hypoinflated No significant abnormality is noted involving the heart, lungs, mediastinum, bony thorax or soft tissues is been some mild improvement in the previously seen left lower lobe atelectasis.. XR/XR chest 1V IMPRESSION: No acute intrathoracic disease.
[2023-08-28 15:51] VITALS: BP 149/70; PULSE 83; RESP 17; TEMP 37; O2SAT 97; BMI 26.8
--- NOTE | 2023-08-28 15:51 | ED_ITS ---
HPI - Headache General Chief Complaint: General Medical Stated Complaint: headache, dizzy, body aches Time Seen by Provider: 08/28/23 17:06 Mode of arrival: ambulatory Limitations: no limitations History of Present Illness ED Provider: Luke Hernandez PA-C HPI Narrative: 83-year-old male with past medical history of diabetes, gout, BPH presents to the ED for sore throat, coughing, body aches, chills, headache, and dizzinesses described lightheadedness/fatigue. Patient having symptoms since yesterday. Patient denies any chest pain or shortness of breath. Patient denies any leg swelling, calf pain, coughing up blood, fever, or chills. Patient states cough is white phlegm. Patient denies any recent travel, pleurisy,, recent trauma. Related Data Home Medications ?Medication ?Instructions ?Recorded ?Confirmed albuterol sulfate 90 mcg/actuation inhalation 11/30/19 03/18/22 aerosol inhaler tamsulosin 0.4 mg capsule 0.4 mg PO DAILY 11/03/20 03/18/22 finasteride 5 mg tablet 5 mg PO DAILY 07/08/21 03/18/22 Previous Rx's ?Medication ?Instructions ?Recorded lancets (Accu-Chek Softclix #100 ea 06/26/20 Lancets) blood sugar diagnostic (Accu-Chek #100 ea 07/20/21 Glenys Plus test strips) allopurinol 100 mg tablet 100 mg PO DAILY #90 tabs 03/11/22 fluticasone propionate 50 1 spray intranasal DAILY #48 mL 12/17/22 mcg/actuation nasal spray,suspension loratadine 10 mg tablet 10 mg PO DAILY #90 tabs 02/01/23 metformin 500 mg tablet 500 mg PO BIDWMEAL #200 tabs 02/01/23 doxycycline hyclate 100 mg tablet 100 mg PO BID 7 days #14 tabs 05/07/23 cholecalciferol (vitamin D3) 1,250 1,250 mcg PO QWEEK 3 months #13 07/28/23 mcg (50,000 unit) capsule caps atorvastatin 20 mg tablet 20 mg PO DAILY #90 tabs 08/01/23 albuterol sulfate 90 mcg/actuation 2 puff inhalation Q4-6H PRN 08/28/23 aerosol inhaler shortness of breath or wheezing #8.5 grams Allergies Allergy/AdvReac Type Severity Reaction Status Date / Time penicillin V Allergy Unknown itching Verified 08/28/23 15:54 Review of Systems 2 Review of Systems: Coughing, body aches, chills, headache, fatigue, sore throat Yes all other systems are reviewed and are negative [facility] Past Medical History Medical History (Updated 08/28/23 @ 19:34 by ALLIE Anna) Gout Noncompliance with medication regimen Vitamin D deficiency Allergic rhinitis Benign prostatic hyperplasia Dyslipidemia Diabetes mellitus with microalbuminuria, without long-term current use of insulin Surgical History Hx of cholecystectomy History of bladder surgery Family History Family History Father HTN (hypertension) Son Diabetes mellitus Daughter No problems noted. Daughter No problems noted. Daughter No problems noted. Social History Social History Housing: House Alcohol intake: never Patient Tobacco Use Status: Former Tobacco user Years Smoked: 12 yrs e-Cigarette/Vaping Use: Never Used Advance Directives: No Advance Directives Information Provided: No Do you have a plan to hurt others: No Plan Current occupational status: retired Cognitive needs: No Hearing needs: No Vision needs: Yes Physical Exam Vital Signs: Vital Signs: Last Vital Signs Temp 98.5 F 08/28/23 20:09 Pulse 64 08/28/23 20:09 Resp 18 08/28/23 20:09 BP 121/66 08/28/23 20:09 Pulse Ox 98 08/28/23 20:09 O2 Del Method Room Air 08/28/23 20:09 BMI result Body Mass Index 26.8 Const: General: cooperative, healthy appearing, comfortable and no acute distress Orientation/consciousness: oriented to person, oriented to place, oriented to time and patient oriented x3 HEENT: Head: Yes normal to inspection, Yes No palpable skull fracture present, Yes normocephalic, Yes atraumatic and No abrasion Throat: Yes posterior oropharynx normal, Yes tonsils normal and Yes uvula midline Eyes: General: appearance normal, both eyes and all related structures Neck: Neck: Yes normal visual inspection, Yes full ROM, Yes no lymphadenopathy, Yes no meningeal signs, Yes trachea midline, Yes supple, No anterior neck swelling and No tender Chest: Chest palpation & inspection: normal inspection of the chest and normal palpation of entire chest wall Resp: Effort & Inspection: normal respiratory effort and able to speak in complete sentences Auscultation: clear to auscultation bilaterally Cardio: Jugular venous distension: no JVD Heart sounds: S1 normal heart sound present and S2 normal heart sound present GI: Inspection: Yes normal to inspection Palpation (GI): Soft to palpation, not firm, nontender, no guarding and not rigid : General: No CVA tenderness and Yes no CVA tenderness Back/Spine/Pelvis: Back: no CVA tenderness, No CVA tenderness and No back tenderness Skin: General skin exam: no rashes or lesions noted, elasticity normal and turgor normal Neuro: General: oriented to person, oriented to place, oriented to time, patient oriented x3, gait normal, tone normal, moves all extremities, Normal light touch and pain sensation, no meningeal signs, no focal motor deficits, CN's II-XI intact bilaterally and normal sensation to monofilament Extrem: Other: Bilateral extremity negative for swelling, pitting edema, or calf tenderness on palpation General: Yes normal to inspection, Yes full ROM and Yes capillary refill normal Psych: Appearance: grossly normal, well kempt and not disheveled Course Course Course Narrative: This is a rapid medical exam. deferred additional HPI, ROS, PE to primary provider. 83 yo male with history of HLD, DM, BPH, asthma here with body aches, sore throat, headache x 2 days. WIll obtain viral testing HUGH Gomez APRN Medical Decision Making Medical Decision Making [facility] Narrative: 83-year-old male history of diabetes, gout, high cholesterol presents to ED for URI symptoms. SARs strep and x-ray ordered. Patient well-appearing. 7:32pm: Patient's positive COVID. Patient vital signs stable. X-ray negative for pneumonia. Patient requesting albuterol for his asthma. Patient is safe for discharge. Patient is explained worrisome sign informed to return to the ED immediately. Not suspecting PE, respiratory failure, asthma COPD exacerbation, PE, myocardial infarction, cardiomyopathy, or CHF. Patient explained worrisome signs and informed to return to the ED immediately Differential Diagnosis Differential Diagnoses: The differential diagnosis associated with the presentation includes (COVID, influenza, RSV) Admission/Observation Consideration of admission/observation: Escalation of care including admission/observation considered Lab Data MDM Lab Attestation statement: I reviewed the patient's lab results. Labs: Lab Results 08/28/23 08/28/23 Range/Units 16:29 17:18 Influenza Type A (PCR) NEGATIVE (Negative) Influenza Type B (PCR) NEGATIVE (Negative) RSV RNA Qual (PCR) NEGATIVE (Negative) SARS-CoV-2 RNA (RT-PCR) POSITIVE A (Negative) S. pyogenes GrpA CARLOS Negative (Negative) Independent Interpretation I performed an independent interpretation of an: Plain X-Ray Radiology Impression Discussion of test interpretation with radiology: I have reviewed the radiologist's reading. Independent Historian Clinical information obtained from an independent historian. History obtained from or confirmed by: Other (patient) External Record Review External record reviewed: Other (prior visits) Prescription Management I considered prescription management with: Other (albuterol) Critical Care Time Critical Care Time Critical Care Time: No Discharge Plan Discharge Clinical Impression: COVID-19 Patient Disposition: Home, Self-Care Instructions: COVID-19 (Coronavirus Disease 2019) (ED) Additional Instructions: Recommend follow-up with primary care provider. Return to the ED immediately for any chest pain, shortness of breath, dizziness, weakness, coughing up blood, leg swelling, calf pain, chest pain/shortness of breath on inspiration, or any other concerning symptoms. Prescriptions: New albuterol sulfate 90 mcg/actuation HFA aerosol inhaler 2 puff inhalation Q4-6H PRN (Reason: shortness of breath or wheezing) Qty: 8.5 0RF No Action (DME) lancets [Accu-Chek Softclix Lancets] Misc See Rx Instructions .ROUTE .MEDSUPPLY Qty: 100 3RF Rx Instructions: use 1 lancet twice a day to test blood sugar (DME) Accu-Chek Glenys Plus test strp Strip See Rx Instructions .ROUTE .MEDSUPPLY Qty: 100 3RF Rx Instructions: use 1 strip twice a day to test blood sugar allopurinol 100 mg tablet 100 mg PO DAILY Qty: 90 1RF fluticasone propionate 50 mcg/actuation spray,suspension 1 spray intranasal DAILY Qty: 48 2RF cholecalciferol (vitamin D3) 1,250 mcg (50,000 unit) capsule 1,250 mcg PO QWEEK 90 Days Qty: 13 0RF atorvastatin 20 mg tablet 20 mg PO DAILY Qty: 90 1RF doxycycline hyclate 100 mg tablet 100 mg PO BID 7 Days Qty: 14 0RF tamsulosin 0.4 mg capsule 0.4 mg PO DAILY albuterol sulfate 90 mcg/actuation HFA aerosol inhaler inhalation finasteride 5 mg tablet 5 mg PO DAILY loratadine 10 mg tablet 10 mg PO DAILY Qty: 90 3RF metformin 500 mg tablet 500 mg PO BIDWMEAL Qty: 200 1RF Interventions: ED Discharge Assessment Last Done: 08/28/23 20:09 Discharge Date/Time: 08/28/23 20:11 Print Language: Turkmen
[2023-08-28 16:29] VITALS: BP 118/62; PULSE 63; RESP 18; TEMP 37.1; O2SAT 98
[2023-08-28 17:16] LABS: Influenza A PCR NEGATIVE (Negative); Influenza B PCR NEGATIVE (Negative); Resp Syncy Virus RNA Qual PCR NEGATIVE (Negative); SARS COV2 PCR INHOUSE POSITIVE (Negative)
[2023-08-28 17:43] LABS: IDNOW Serial# 08D9AD1C; Strep A Nucleic Acid Negative (Negative)
[2023-08-28 19:41] VITALS: BP 121/66; PULSE 64; RESP 18; TEMP 36.9; O2SAT 98
[2023-08-28 20:09] VITALS: BP 121/66; PULSE 64; RESP 18; TEMP 36.9; O2SAT 98
== END 2023-08-28 20:11 | disposition home or self-care (01) ==
PROVIDERS: Nurse Practitioner Family; Physician Assistant; Emergency Provider Emergency Medicine; PCP Internal Medicine
DX: U07.1 COVID-19 (principal); R51.9 Headache, unspecified; R42 Dizziness and giddiness; M79.10 Myalgia, unspecified site; J02.9 Acute pharyngitis, unspecified
CPT/HCPCS: 0241U; 71045; 87651; 99284

== ENCOUNTER 2024-03-21 21:20 | Inpatient (IN) | payer OTHER, SELFPAY ==
--- NOTE | 2024-03-21 | ECG_ITS ---
Test Reason : PALPITATIONS Blood Pressure : */* mmHG Vent. Rate : 97 BPM Atrial Rate : * BPM P-R Int : * ms QRS Dur : 84 ms QT Int : 344 ms P-R-T Axes : * -7 119 degrees QTcB Int : 436 ms Atrial fibrillation Minimal voltage criteria for LVH, may be normal variant ( R in aVL ) Nonspecific ST and T wave abnormality Abnormal ECG When compared with ECG of 21-Oct-2022 07:16, Atrial fibrillation has replaced Sinus rhythm Vent. rate has increased by 40 bpm Nonspecific T wave abnormality, improved in Inferior leads Referred By: Generic ED Physician Electronically Signed By: EBEN GAINES MD
--- NOTE | ~2024-03-21 | XR_ITS ---
CLINICAL HISTORY: sob 1 view chest x-ray. Comparison: CR/CO/SR - XR CHEST 1V - 08/28/23 17:18 EDT Findings: No consolidation, pneumothorax, or effusion. Heart size normal. Impression: 1. No acute cardiopulmonary process. No focal pulmonary consolidation. This document has been electronically signed by: Neftaly France MD on 03/21/2024 22:04:50
[2024-03-21 21:30] VITALS: BP 139/97; PULSE 130; O2SAT 98; BMI 25.5
[2024-03-21 21:40] VITALS: BP 123/76; PULSE 91; RESP 20; TEMP 36.9; O2SAT 98
--- NOTE | 2024-03-21 21:49 | ED.ARRPALP ---
HPI - Arrhythmia/Palpitations General Chief Complaint: Arrhythmia/Palpitations Stated Complaint: ?irregular heart beat Time Seen by Provider: 03/21/24 21:49 Source: patient and EMS Mode of arrival: EMS Limitations: no limitations History of Present Illness ED Provider: HPI narrative: Patient's history of diabetes, COPD comes here for episodes of palpitation which started about 1.5 hours prior to evaluation noticed to be in atrial fibrillation. Patient was resting had ice cream noticed tingling feeling and chest tightness and palpitation EMS came noticed patient in AFib with heart rate fluctuating between 70-130 Related Data Home Medications ?Medication ?Instructions ?Recorded ?Confirmed albuterol sulfate 90 mcg/actuation inhalation 11/30/19 03/18/22 aerosol inhaler tamsulosin 0.4 mg capsule 0.4 mg PO DAILY 11/03/20 03/18/22 finasteride 5 mg tablet 5 mg PO DAILY 07/08/21 03/18/22 Previous Rx's ?Medication ?Instructions ?Recorded lancets (Accu-Chek Softclix #100 ea 06/26/20 Lancets) blood sugar diagnostic (Accu-Chek #100 ea 07/20/21 Glenys Plus test strips) allopurinol 100 mg tablet 100 mg PO DAILY #90 tabs 03/11/22 metformin 500 mg tablet 500 mg PO BIDWMEAL #200 tabs 02/01/23 doxycycline hyclate 100 mg tablet 100 mg PO BID 7 days #14 tabs 05/07/23 atorvastatin 20 mg tablet 20 mg PO DAILY #90 tabs 08/01/23 albuterol sulfate 90 mcg/actuation 2 puff inhalation Q4-6H PRN 08/28/23 aerosol inhaler shortness of breath or wheezing #8.5 grams cholecalciferol (vitamin D3) 1,250 1,250 mcg PO QWEEK 3 months #13 10/23/23 mcg (50,000 unit) capsule caps loratadine 10 mg tablet 10 mg PO DAILY #90 tabs 03/14/24 fluticasone propionate 50 1 spray intranasal DAILY #48 mL 03/16/24 mcg/actuation nasal spray,suspension Allergies Allergy/AdvReac Type Severity Reaction Status Date / Time penicillin V Allergy Unknown itching Verified 03/21/24 21:33 Review of Systems Review of Systems: Yes all other systems are reviewed and are negative PMFSH Past Medical History Medical History Gout Noncompliance with medication regimen Vitamin D deficiency Allergic rhinitis Benign prostatic hyperplasia Dyslipidemia Diabetes mellitus with microalbuminuria, without long-term current use of insulin Surgical History Hx of cholecystectomy History of bladder surgery Family History Family History Father HTN (hypertension) Son Diabetes mellitus Daughter No problems noted. Daughter No problems noted. Daughter No problems noted. Social History Social History Housing: House Alcohol intake: never Patient Tobacco Use Status: Former Tobacco user Years Smoked: 12 yrs Smoked in Last 30 Days: No e-Cigarette/Vaping Use: Never Used Use of substances other than those prescribed or required for medical reasons: No Advance Directives: No Advance Directives Information Provided: Yes Do you have a plan to hurt others: No Plan Current occupational status: retired Cognitive needs: No Hearing needs: No Vision needs: Yes Physical Exam Vital Signs: Vital Signs: Last Vital Signs Temp 98.2 F 03/22/24 04:40 Pulse 61 03/22/24 04:40 Resp 17 03/22/24 04:40 BP 111/62 03/22/24 04:40 Pulse Ox 95 03/22/24 04:40 O2 Del Method Room Air 03/22/24 04:40 BMI result Body Mass Index 25.5 Appearance: Alert. Oriented X3. No acute distress. Eyes: PERRLA, No Nystagmus ENT: Pharynx normal. Oral Mucosa moist Neck: Normal inspection. Neck supple. CVS: Irregularly irregular heart rate Pulses normal. Respiratory: No respiratory distress. Equal air entry bilateral, no wheezing/rales/rhonchi Abdomen: Soft and nontender. Bowel sounds are present, no mass palpable, no CVA tenderness Skin: Skin warm and dry. Normal skin color. Normal skin turgor. Extremities: No lower extremity edema. No calf tenderness Neuro: Oriented X 3. No motor deficit. No sensory deficit.No cerebellar signs , cranial nerves II-XII intact Medications Administered Generic Name Dose Route Start Last Admin Trade Name Freq PRN Reason Stop Dose Admin Diltiazem HCl 30 mg 03/21/24 22:15 03/21/24 22:33 Diltiazem Hcl 30 Mg Tablet PO 30 mg QID ARIELLE Administration Protocol Sodium Chloride 3 ml 03/22/24 00:00 03/22/24 00:00 0.9 % Sodium Chloride Flush 3 Ml Syringe IVFLUSH Not Given QSHIFT ARIELLE Discontinued Medications Generic Name Dose Route Start Last Admin Trade Name Romie PRN Reason Stop Dose Admin Apixaban 5 mg 03/21/24 22:18 03/21/24 22:33 Apixaban 5 Mg Tablet PO 03/21/24 22:19 5 mg ONCE ONE Administration Diltiazem HCl 10 mg 03/21/24 22:10 03/21/24 22:31 Diltiazem Hcl 50 Mg/10 Ml Vial IVPUSH 03/21/24 22:11 10 mg STAT STA Administration Insulin Human Regular 5 unit 03/21/24 22:35 03/21/24 22:46 Insulin Regular, Human 100 Unit/Ml 10 Ml Vial IVPUSH 03/21/24 22:36 5 unit ONCE ONE Administration Medical Decision Making Medical Decision Making [facility] Narrative: Patient with new onset of atrial fibrillation chads score of 3 will start on Eliquis and will give IV diltiazem. Will admit patient for further management Differential Diagnosis Differential Diagnoses: The differential diagnosis associated with the presentation includes SVT/AFib/atrial flutter/ACS Admission/Observation Consideration of admission/observation: Escalation of care including admission/observation considered Consult Healthcare Provider Management of the patient was discussed with: Hospitalist Lab Data [facility] Lab Attestation statement: I reviewed the patient's lab results. 03/22/24 05:09 03/22/24 05:09 Labs: Lab Results 03/21/24 03/21/24 03/21/24 Range/Units 21:54 21:55 22:28 WBC 7.4 (4.8-10.8) X10*3/uL RBC 4.21 L (4.60-5.80) X10*6/uL Hgb 13.7 L (14.0-18.0) g/dl Hct 38.0 L (42.0-52.0) % MCV 90.3 (80.0-98.0) fL MCH 32.5 (27.0-33.0) pg MCHC 36.1 H (31.0-36.0) g/dl RDW 12.3 (11.0-16.0) % Plt Count 205 (160-400) X10*3/uL MPV 9.0 L (9.4-12.4) fL Immature Gran % (Auto) 0.3 (0.0-0.4) % Neut % (Auto) 60.3 (45-73) % Lymph % (Auto) 30.9 (20-40) % [place] % (Auto) 5.6 (2-11) % Eos % (Auto) 2.2 (0-4) % Baso % (Auto) 0.7 (0-2) % Lymph # (Auto) 2.3 (1.2-4.9) X10*3/uL [place] # (Auto) 0.4 (0.1-1.2) X10*3/uL Eos # (Auto) 0.2 (0.0-0.4) X10*3/uL Baso # (Auto) 0.1 (0.0-0.2) X10*3/uL Abs Immat Gran (auto) 0.02 (0.00-0.03) X10*3/uL Absolute Neuts (auto) 4.4 (2.0-8.3) x10*3/uL Absolute Nucleated RBC 0.000 (0.0-0.012) X10*3/uL Nucleated RBC % (auto) 0.0 (0.0-0.2) /100WBC PT 10.9 (10.9-12.4) SEC INR 0.9 (0.9-1.1) APTT 34.7 (26.0-36.8) SEC Sodium 140 (135-145) mmol/L Potassium 3.8 (3.3-5.1) mmol/L Chloride 111 H (96-108) mmol/L Carbon Dioxide 20 L (22-29) mmol/L Anion Gap 13 (12-20) BUN 14 (9-16) mg/dL Creatinine 0.84 (0.5-1.4) mg/dL Estim Creat Clear Calc 67.5 Estimated GFR > 60 Random Glucose 220 H (60-115) mg/dL Calcium 8.9 D (8.4-10.2) mg/dL Total Bilirubin 0.5 (0.0-1.0) mg/dL AST 20 (5-37) U/L ALT 17 (0-40) U/L Alkaline Phosphatase 73 (39-117) U/L Troponin I High Sens < 2.7 (<3.5-35.0) ng/L Total Protein 7.4 (6.5-8.0) g/dL Albumin 3.6 (3.5-5.0) g/dL Influenza Type A (PCR) NEGATIVE (Negative) Influenza Type B (PCR) NEGATIVE (Negative) RSV RNA Qual (PCR) NEGATIVE (Negative) SARS-CoV-2 RNA (RT-PCR) NEGATIVE (Negative) Independent Interpretation I performed an independent interpretation of an: EKG Interpretation: AFib with ventricular rate of 97 beats per minute no acute ST-T changes no acute ischemia LVH+ Discharge Plan Discharge Clinical Impression: Atrial fibrillation with rapid ventricular response Patient Disposition: Admitted As Inpatient
[2024-03-21 21:59] LABS: MANUAL DIFF FLAG NO
[2024-03-21 22:00] LABS: Basophils Absolute Auto 0.1 X10*3/uL (0.0-0.2); Basophils Percent Auto 0.7 % (0-2); Eosinophils Absolute Auto 0.2 X10*3/uL (0.0-0.4); Eosinophils Percent Auto 2.2 % (0-4); Hemoglobin 13.7 g/dl (14.0-18.0); Imm Gran Abs Auto 0.02 X10*3/uL (0.00-0.03); Imm Gran Pct Auto 0.3 % (0.0-0.4); Lymphocytes Absolute Auto 2.3 X10*3/uL (1.2-4.9); Lymphocytes Percent Auto 30.9 % (20-40); Mean Corpuscular HGB Conc 36.1 g/dl (31.0-36.0); Mean Corpuscular Hemoglobin 32.5 pg (27.0-33.0); Mean Corpuscular Volume 90.3 fL (80.0-98.0); Monocytes Absolute Auto 0.4 X10*3/uL (0.1-1.2); Monocytes Percent Auto 5.6 % (2-11); Neutrophils Absolute Auto 4.4 x10*3/uL (2.0-8.3); Neutrophils Percent Auto 60.3 % (45-73); Platelet Count 205 X10*3/uL (160-400); Red Blood Count 4.21 X10*6/uL (4.60-5.80); Red Cell Distribution Width 12.3 % (11.0-16.0); White Blood Count 7.4 X10*3/uL (4.8-10.8)
[2024-03-21 22:26] LABS: Alanine Aminotransferase 17 U/L (0-40); Albumin Level 3.6 g/dL (3.5-5.0); Alkaline Phosphatase 73 U/L (39-117); Anion Gap 13 (12-20); Aspartate Amino Transferase 20 U/L (5-37); Bilirubin Total 0.5 mg/dL (0.0-1.0); Blood Urea Nitrogen 14 mg/dL (9-16); Calcium 8.9 mg/dL (8.4-10.2); Carbon Dioxide 20 mmol/L (22-29); Chloride 111 mmol/L (96-108); Creatinine Clr Calc Pharmacy 67.5; Estimated Glomerular Filt Rate > 60; Glucose Random 220 mg/dL (60-115); Potassium 3.8 mmol/L (3.3-5.1); Sodium 140 mmol/L (135-145); Total Protein 7.4 g/dL (6.5-8.0)
[2024-03-21 22:31] VITALS: BP 132/95; PULSE 128
[2024-03-21] MEDS: dilTIAZem HCL 50 MG/10 ML VIAL 10 MG IVPUSH (22:31)
--- NOTE | 2024-03-21 22:31 | P.HPHOSP_ITS ---
History of Present Illness Date of Service: 03/21/24 Chief Complaint: Palpitations This is a 84-year-old male with pertinent history of wdf-khemvwh-podhhcktf diabetes mellitus, gout, mixed hyperlipidemia, BPH who presents to the emergency department for evaluation of palpitations. Patient is hard of hearing and states he had sudden onset of palpitations on the day of presentation. Does not have a history of irregular heart rhythm but states he has had on and off palpitations for the last 2-3 months. Had associated chest tightness with palpitations. No dyspnea. No PND. No orthopnea. Denies fever, chills, abdominal pain, nausea, vomiting, changes in urinary or bowel habits. In the emergency department, patient was found to be in AFib with RVR Review of Systems 2 Constitutional: Constitutional: Reports fatigue and Reports malaise Cardiovascular: Cardiovascular: Reports rapid heart rate and Reports irregular heart rhythm Respiratory: Respiratory: Reports no additional respiratory complaints Gastrointestinal: Gastrointestinal: Reports no additional gastrointestinal complaints Genitourinary: Genitourinary: Reports no additional male genitourinary complaints Endocrine: Endocrine: Reports fatigue [facility] Medical History Gout Noncompliance with medication regimen Vitamin D deficiency Allergic rhinitis Benign prostatic hyperplasia Dyslipidemia Diabetes mellitus with microalbuminuria, without long-term current use of insulin Family History Father HTN (hypertension) Son Diabetes mellitus Daughter No problems noted. Daughter No problems noted. Daughter No problems noted. Surgical History Hx of cholecystectomy History of bladder surgery Social History Housing: House Alcohol intake: never Patient Tobacco Use Status: Former Tobacco user Years Smoked: 12 yrs e-Cigarette/Vaping Use: Never Used Advance Directives: No Advance Directives Information Provided: Yes Do you have a plan to hurt others: No Plan Current occupational status: retired Cognitive needs: No Hearing needs: No Vision needs: Yes Meds Allergies Allergy/AdvReac Type Severity Reaction Status Date / Time penicillin V Allergy Unknown itching Verified 03/21/24 21:33 Active Medications: Current Medications Apixaban (Apixaban 5 Mg Tablet) 5 mg PO BID [facility] Dextrose (Dextrose 50 % 25 Gm/50 Ml Syringe) 25 gm IVPUSH Q15M PRN; Protocol PRN Reason: per Hypoglycemia Standing Ord. Diltiazem HCl (Diltiazem Hcl 30 Mg Tablet) 30 mg PO QID ARIELLE; Protocol Glucose (Glucose Gel 15 Gm Gel..Gram.) 15 gm PO Q15M PRN; Protocol PRN Reason: per Hypoglycemia Standing Ord. Insulin Human Lispro (Insulin Lispro 100 Unit/Ml 3 Ml Vial) 0 unit SUBCUT QIDACHS [facility]; Protocol Home Medications ?Medication ?Instructions ?Recorded ?Confirmed ?Last Taken ?Type albuterol sulfate 90 mcg/actuation inhalation 11/30/19 03/18/22 Unknown History aerosol inhaler tamsulosin 0.4 mg capsule 0.4 mg PO DAILY 11/03/20 03/18/22 Unknown History finasteride 5 mg tablet 5 mg PO DAILY 07/08/21 03/18/22 Unknown History Physical Exam 2 Vital Signs and Narrative: Vital Signs: Last Vital Signs Temp 98.4 F 03/21/24 21:40 Pulse 91 03/21/24 21:40 Resp 20 03/21/24 21:40 BP 123/76 03/21/24 21:40 Pulse Ox 98 03/21/24 21:40 O2 Del Method Room Air 03/21/24 21:40 BMI result Body Mass Index 25.5 Elderly male lying in bed in no distress Neck supple, no JVD Irregularly irregular, S1-S2 heard Regular breath sounds bilaterally, no wheezing or crackles appreciated Abdomen soft nontender, no guarding, no rigidity Patient is awake, alert and oriented to self, place, time and person ; no focal motor deficit Psych: Normal mood No pedal edema Results Labs 03/21/24 21:55 03/21/24 21:55 Labs: Laboratory Results - last 24 hr 03/21/24 21:55 MCV 90.3 MCH 32.5 MCHC 36.1 H RDW 12.3 Plt Count 205 MPV 9.0 L Immature Gran % (Auto) 0.3 Neut % (Auto) 60.3 Lymph % (Auto) 30.9 [place] % (Auto) 5.6 Eos % (Auto) 2.2 Baso % (Auto) 0.7 Lymph # (Auto) 2.3 [place] # (Auto) 0.4 Eos # (Auto) 0.2 Baso # (Auto) 0.1 Abs Immat Gran (auto) 0.02 Absolute Neuts (auto) 4.4 Absolute Nucleated RBC 0.000 Nucleated RBC % (auto) 0.0 Anion Gap 13 Estim Creat Clear Calc 67.5 Estimated GFR > 60 Random Glucose 220 H Calcium 8.9 D Total Bilirubin 0.5 AST 20 ALT 17 Alkaline Phosphatase 73 Total Protein 7.4 Albumin 3.6 Assessment and Plan (1) Atrial fibrillation with RVR: Status: Acute Plan This is a 84-year-old male with pertinent history of jgq-tfkpxzr-qggwiwspt diabetes mellitus, gout, mixed hyperlipidemia, BPH who presents to the emergency department for evaluation of palpitations. #. AFib with RVR, new diagnosis: Will admit patient with cardiac monitoring. Heart rate as high as 130s. Given IV and po diltiazem in the ER. Chads Vasc score 3. Initiated Eliquis. Obtaining TSH and transthoracic echocardiogram. Consulted Cardiology, appreciate assistance #. Btc-iphrmuq-jzapfgzzq diabetes mellitus with hyperglycemia: Initiating Accu- Cheks with sliding scale insulin #. BPH: On finasteride and Flomax #. Mixed hyperlipidemia: On statin #. Gout: On allopurinol Med rec pending DVT prophylaxis: Eliquis Full code. Discussed with patient at bedside Admit as inpatient and will require two night minimum hospital stay for close monitoring of heart rate, evaluation and management of new onset AFib with RVR (as above), which is not possible in a lesser acute setting. Cardiology consult pending Quality Stroke Does the patient have a stroke diagnosis?: No VTE Prior VTE?: No VTE Risk Level:: Medical - moderate - high VTE Device Contraindication: Treatment Not Indicated VTE Drug Contraindication: N/A - Med Ordered
[2024-03-21] MEDS: Apixaban 5 MG TABLET PO (22:33)
[2024-03-21] MEDS: dilTIAZem HCL 30 MG TABLET PO (22:33)
[2024-03-21 22:34] LABS: Troponin-I High Sensitivity < 2.7 ng/L (<3.5-35.0)
[2024-03-21 22:35] LABS: Influenza A PCR NEGATIVE (Negative); Influenza B PCR NEGATIVE (Negative); Resp Syncy Virus RNA Qual PCR NEGATIVE (Negative); SARS COV2 PCR INHOUSE NEGATIVE (Negative)
[2024-03-21 22:45] LABS: INTERNATIONAL NORM RATIO 0.9 (0.9-1.1); Prothrombin Time 10.9 SEC (10.9-12.4)
[2024-03-21] MEDS: Insulin Regular, Human 100 UNIT/ML 10 ML VIAL IVPUSH (22:46)
[2024-03-21 22:48] LABS: Partial Thromboplastin Time 34.7 SEC (26.0-36.8)
[2024-03-21 23:18] VITALS: PULSE 79
[2024-03-21 23:40] LABS: Glucose, Whole Blood 114 mg/dL (60-115)
--- NOTE | 2024-03-22 | ECG_ITS ---
Test Reason : afib Blood Pressure : */* mmHG Vent. Rate : 61 BPM Atrial Rate : 61 BPM P-R Int : 182 ms QRS Dur : 90 ms QT Int : 406 ms P-R-T Axes : -29 -26 -12 degrees QTcB Int : 408 ms Normal sinus rhythm Nonspecific T wave abnormality Abnormal ECG When compared with ECG of 21-Mar-2024 21:43, Sinus rhythm has replaced Atrial fibrillation Vent. rate has decreased by 36 bpm Nonspecific T wave abnormality, worse in Inferior leads Referred By: Shandra Choi Electronically Signed By: EBEN GAINES MD
[2024-03-22 00:01] VITALS: BP 110/63; PULSE 72; RESP 16; TEMP 37.2; O2SAT 96
[2024-03-22 04:40] VITALS: BP 111/62; PULSE 61; RESP 17; TEMP 36.8; O2SAT 95
[2024-03-22 06:04] LABS: Anion Gap 10 (12-20); Blood Urea Nitrogen 13 mg/dL (9-16); Calcium 9.1 mg/dL (8.4-10.2); Carbon Dioxide 25 mmol/L (22-29); Chloride 109 mmol/L (96-108); Creatinine Clr Calc Pharmacy 72.7; Estimated Glomerular Filt Rate > 60; Glucose Random 166 mg/dL (60-115); Potassium 3.6 mmol/L (3.3-5.1); Sodium 140 mmol/L (135-145)
[2024-03-22 06:16] LABS: Hematocrit 38.9 % (42.0-52.0); Hemoglobin 13.4 g/dl (14.0-18.0); Mean Corpuscular HGB Conc 34.4 g/dl (31.0-36.0); Mean Corpuscular Hemoglobin 31.8 pg (27.0-33.0); Mean Corpuscular Volume 92.2 fL (80.0-98.0); Mean Platelet Volume 9.3 fL (9.4-12.4); Platelet Count 214 X10*3/uL (160-400); Red Blood Count 4.22 X10*6/uL (4.60-5.80); Red Cell Distribution Width 12.4 % (11.0-16.0)
[2024-03-22 06:19] LABS: Thyroid Stimulating Hormone 1.19 uIU/mL (0.32-4.0)
--- NOTE | 2024-03-22 07:00 | CA_ITS ---
Transthoracic Echocardiogram Patient (Last, First, Middle): Anderson Sampson U Gender: Male Date of : 1940 Age: 84 Procedure Date: 03/22/2024 Procedure Type: Transthoracic Echocardiogram Location: ER Height: 177.8 cm Weight: 80.29 kg BSA: 1.98 m2 Heart Rate: 64 bpm BP: 123 / 64 mmHg [employer]: DARREN Referring MD: Octavia Gold MD Labor Utilization Superintendent: Tariq Roberts MD Symptoms: afib Study Quality: Adequate ECG Rhythm: Sinus Conclusions: - 1. Hyperdynamic LV EF of greater than 70% 2. Cardiac valvular Dopplers within normal limits 3. Normal RV systolic pressure 4. Upper limits of normal ascending aortic size 5. No pericardial effusion Findings Left Ventricle Normal left ventricular cavity size. There is normal left ventricular wall thickness. The left ventricular systolic function is hyperdynamic. The visually estimated ejection fraction is >70%. Spectral Doppler is indicative of a normal filling pattern. Right Ventricle Normal right ventricular cavity size and systolic function. Atria The left atrium is normal in size. There is no evidence of interatrial shunt. The right atrium is likely dilated. Aortic Valve Normal aortic valve structure and function. There is no aortic valve stenosis. There is no aortic valve regurgitation. Mitral Valve There is mild anterior and posterior mitral leaflet thickening. There is trace mitral valve regurgitation. There is no mitral valve stenosis. Pulmonic Valve The pulmonic valve was not well visualized. Tricuspid Valve Likely normal tricuspid valve structure and function. There is trace tricuspid valve regurgitation. The right ventricular systolic pressure is normal. The right ventricular systolic pressure is 18 mmHg. Normal right atrial pressure. There is no evidence of pulmonary hypertension. Great Vessels The pulmonary artery was not well visualized. There is no dilatation of the ascending aorta measuring 3.60 cm. Small plaque is seen in the sino tubular ridge. Venous The inferior vena cava is mildly dilated and collapses greater than 50% with inspiration. Pericardium/Pleural There is no evidence of pericardial effusion. Prior Study Comparison No prior study available for comparison. Measurements 2D Linear Measurements IVSd: 1.08 0.6-0.9/0.6-1.0 cm LVIDd: 3.94 3.9-5.3/4.2-5.9 cm LVIDd Index: 1.99 2.4-3.2/2.2-3.1 cm/m2 LVIDs: 2.79 2.0-3.6 cm LVPWd: 0.78 0.7-1.1 cm LA Diam: 3.40 2.7-3.8/3.0-4.0 cm LAIDs Index: 1.72 1.5-2.3 cm/m2 LV Mass: 139.10 67-162/88-224 g LV Mass Index: 70.25 43-95/49-115 g/m2 LVOT Diam: 2.20 3.0+(-)1.3 cm 2D Volumes RA ESV A/L: 28.80 19-21 ML/M2 2D Systolic Function EF 4C: 75.00 >55% EF 2C: 67.00 >55% EF BiP: 72.50 >55% Mitral Valve MV Pk E: 0.96 MV PK A: 0.60 MV Decel Time: 264.00 E/A: 1.60 E'Lateral: 6.74 E'Medial: 6.20 E/E' Med: 15.40 E/E' Lat: 14.20 PHT: 77.00 MVA PHT: 2.86 Decel [place]: 3.62 Aortic Valve AoV Pk Adolph: 0.96 AoV Pk Grad: 4.00 MANJINDER: 3.66 LVOT LVOT Pk Adolph: 1.03 LVOT Mn Adolph: 0.67 LVOT VTI: 0.23 LVOT Pk Grad: 4.00 LVOT Mn Grad: 2.00 LVOT Diam: 2.20 LVOT Area: 3.80 Diastolic Function MV Pk E: 0.96 MV Pk A: 0.60 E/A: 1.60 E'Medial: 6.20 E/E' Med: 15.40 E' Laterial: 6.74 E/E' Lat: 14.20 Right Ventricle TAPSE (mm): 26.10 TVS' Adolph: 10.90 Tricuspid Valve TR Pk Adolph: 1.92 TR Pk Grad: 15.00 RA Press: 3.00 RVSP: 18.00 Great Vessels Aorta Sinus of Valsalva: 3.70 2.0-3.5 cm Ao Asc: 3.60 2.1-3.4 cm Pulmonary Veins Pulm Vein S/D 1.20 Updated in Other Vendor System with Status of Final Tariq Roberts MD electronically signed on 03/22/2024 12:04:35 PM with status of Final
[2024-03-22 07:10] LABS: Glucose, Whole Blood 163 mg/dL (60-115)
[2024-03-22] MEDS: Insulin Lispro 100 UNIT/ML 3 ML VIAL SUBCUT (07:33)
[2024-03-22] MEDS: 0.9 % Sodium Chloride Flush 3 ML SYRINGE IVFLUSH (07:36)
[2024-03-22 08:06] VITALS: BP 123/64; PULSE 67; RESP 16
[2024-03-22] MEDS: Apixaban 5 MG TABLET PO (08:43)
--- NOTE | 2024-03-22 08:48 | PHA.MEDREC ---
Addendum entered by Brian Jung [facility] 03/22/24 08:53: Pt did say he is now on Vitamin D3 daily tablet, unsure of dose. Original Note: Pharmacy Consult ? Medication Reconciliation Pharmacy has completed the medication reconciliation.Spoke with patient and called [facility] Melissa Lazaro to confirm medications. Pt was able to confirm atorvastatin, albuterol, fluticasone nasal spray, and loratadine. Pt states flavio friedman be on metformin, tamsulosin, but could not confirm last time he took these, [facility] states metformin was last filled January 2023, and has no claims for tamsulosin. Removed Vitamin D3 and finasteride off med rec, as there were no claims for finasteride, and Vitamin D3 was filled for 90 day supply in July 2023, taken once weekly, however pt stated he took these daily and it seemed to work out for him...
--- NOTE | 2024-03-22 09:34 | PC.NURSE ---
Pt is alert and oriented. Denies pain or SOB. Noted sinus micky at 0700 HR 50s. While eating breakfast HR up to 70s, Shandra Choi aware and plan to hold Crdizem PO dose. BP stable and pt asymptomatic. Skin pink warm and dry. Breathing easy. Covered with 2 units of Insulin for POC 163.
--- NOTE | 2024-03-22 11:11 | PM.DS ---
DS: Providers Provider Date of Service: 03/22/24 Date of admission: 03/21/24 22:30 Date of discharge: 03/22/24 Primary care physician: Kelsy Valdez MD Consults: 03/21/24 22:29 Consult to Cardiology Routine Consulting Provider: [facility] Reason for consultation: afib with rvr Has provider been notified: Yes Attending physician on discharge: Taz Masterson Discharging clinician: Shandra Choi DS: Diagnosis Discharge Diagnosis (1) Atrial fibrillation with RVR: Status: Acute DS: Summary Hospital Course Hospital Course: From H&P on the day of admission This is a 84-year-old male with pertinent history of duc-zzrdusq-jivgkcfdx diabetes mellitus, gout, mixed hyperlipidemia, BPH who presents to the emergency department for evaluation of palpitations. Patient is hard of hearing and states he had sudden onset of palpitations on the day of presentation. Does not have a history of irregular heart rhythm but states he has had on and off palpitations for the last 2-3 months. Had associated chest tightness with palpitations. No dyspnea. No PND. No orthopnea. Denies fever, chills, abdominal pain, nausea, vomiting, changes in urinary or bowel habits. In the emergency department, patient was found to be in AFib with RVR New onset atrial fibrillation with rapid ventricular response Patient was treated with Cardizem, at some point converted back to sinus rhythm, patient's symptoms resolved. TSH was within normal limits. He was seen by Cardiology who recommended starting Multaq 400 mg b.i.d. and continuing oral anticoagulation with Eliquis 5 mg twice daily. Echo was obtained, official report pending but per cardiology no obvious issues and safe for discharge. Recommend outpatient follow up with cardiology for further work up/stress test. Time Attestation Discharge Coordination Time (in mins): 35 Quality: Safe Use of Opioids Does Pt have an Active Cancer Diagnosis on the Problem List?: No Quality: Stroke Does the patient have a stroke diagnosis?: No Physical Exam Vital Signs: Vital Signs: Last Vital Signs Temp 98.2 F 03/22/24 04:40 Pulse 67 03/22/24 08:06 Resp 16 03/22/24 08:06 BP 123/64 03/22/24 08:06 Pulse Ox 95 03/22/24 04:40 O2 Del Method Room Air 03/22/24 04:40 BMI result Body Mass Index 25.5 Const: General: cooperative, comfortable, no acute distress, alert and awake Nutritional Appearance: average body habitus Orientation/consciousness: patient oriented x3 Resp: Effort & Inspection: normal respiratory effort, able to speak in complete sentences, no respiratory distress and no use of accessory muscles Cardio: Rate: regular rate GI: Palpation (GI): nontender Neuro: Other: grossly nonfocal General: patient oriented x3 DS: Data Data Completed and Pending Labs on day of discharge: Laboratory Results - last 24 hr 03/21/24 03/21/24 03/21/24 21:54 21:55 22:28 WBC 7.4 RBC 4.21 L Hgb 13.7 L Hct 38.0 L MCV 90.3 MCH 32.5 MCHC 36.1 H RDW 12.3 Plt Count 205 MPV 9.0 L Immature Gran % (Auto) 0.3 Neut % (Auto) 60.3 Lymph % (Auto) 30.9 [place] % (Auto) 5.6 Eos % (Auto) 2.2 Baso % (Auto) 0.7 Lymph # (Auto) 2.3 [place] # (Auto) 0.4 Eos # (Auto) 0.2 Baso # (Auto) 0.1 Abs Immat Gran (auto) 0.02 Absolute Neuts (auto) 4.4 Absolute Nucleated RBC 0.000 Nucleated RBC % (auto) 0.0 PT 10.9 INR 0.9 APTT 34.7 Sodium 140 Potassium 3.8 Chloride 111 H Carbon Dioxide 20 L Anion Gap 13 BUN 14 Creatinine 0.84 Estim Creat Clear Calc 67.5 Estimated GFR > 60 POC Glucose Random Glucose 220 H Calcium 8.9 D Total Bilirubin 0.5 AST 20 ALT 17 Alkaline Phosphatase 73 Troponin I High Sens < 2.7 Total Protein 7.4 Albumin 3.6 TSH Influenza Type A (PCR) NEGATIVE Influenza Type B (PCR) NEGATIVE RSV RNA Qual (PCR) NEGATIVE SARS-CoV-2 RNA (RT-PCR) NEGATIVE 03/21/24 03/22/24 03/22/24 23:35 05:09 07:05 WBC 8.0 RBC 4.22 L Hgb 13.4 L Hct 38.9 L MCV 92.2 MCH 31.8 MCHC 34.4 RDW 12.4 Plt Count 214 MPV 9.3 L Immature Gran % (Auto) Neut % (Auto) Lymph % (Auto) [place] % (Auto) Eos % (Auto) Baso % (Auto) Lymph # (Auto) [place] # (Auto) Eos # (Auto) Baso # (Auto) Abs Immat Gran (auto) Absolute Neuts (auto) Absolute Nucleated RBC 0.000 Nucleated RBC % (auto) 0.0 PT INR APTT Sodium 140 Potassium 3.6 Chloride 109 H Carbon Dioxide 25 Anion Gap 10 L BUN 13 Creatinine 0.78 Estim Creat Clear Calc 72.7 Estimated GFR > 60 POC Glucose 114 163 H Random Glucose 166 H Calcium 9.1 Total Bilirubin AST ALT Alkaline Phosphatase Troponin I High Sens Total Protein Albumin TSH 1.19 Influenza Type A (PCR) Influenza Type B (PCR) RSV RNA Qual (PCR) SARS-CoV-2 RNA (RT-PCR) Discharge Plan Discharge Anticipated Discharge Date/Time: 03/22/24 12:06 Patient Disposition: Home, Self-Care Discharge Diagnosis: new onset atrial fibrillation Referrals: Kelsy Valdez MD [Primary Care Provider] - 1 Week Tariq Roberts MD [Physician] - 1 Week Discharge Medications: New Eliquis 5 mg Tablet 5 mg PO BID 90 Days Qty: 180 0RF Multaq 400 mg tablet 400 mg PO Q12H 30 Days Qty: 60 0RF Rx Instructions: must administer with a meal/food Continued atorvastatin 20 mg tablet 20 mg PO DAILY Qty: 90 1RF loratadine 10 mg tablet 10 mg PO DAILY Qty: 90 1RF fluticasone propionate 50 mcg/actuation spray,suspension 1 spray intranasal DAILY Qty: 48 4RF albuterol sulfate 90 mcg/actuation HFA aerosol inhaler 2 puff inhalation Q4-6H PRN (Reason: shortness of breath or wheezing) Qty: 8.5 0RF cholecalciferol (vitamin D3) [Vitamin D3] 25 mcg (1,000 unit) Tablet 25 mcg PO DAILY Discontinued aspirin 325 mg Tablet 650 mg PO Q4-6H PRN (Reason: Pain) No Action (DME) lancets [Accu-Chek Softclix Lancets] Misc See Rx Instructions .ROUTE .MEDSUPPLY Qty: 100 3RF Rx Instructions: use 1 lancet twice a day to test blood sugar (DME) Accu-Chek Glenys Plus test strp Strip See Rx Instructions .ROUTE .MEDSUPPLY Qty: 100 3RF Rx Instructions: use 1 strip twice a day to test blood sugar Discharge Orders: Discharge Order (Routine); Ordered 03/22/24 Ordered By: Shandra Choi Activity on Discharge: As tolerated Stand Alone Forms: Patient Portal Discharge page Print Language: [place] Care Plan Goals: see below Health Concerns: new onset atrial fibrillation - converted back into normal sinus rhythm Plan of Treatment: take eliquis to reduce risk of stroke - don't take NSAIDs (ibuprofen, aspirin etc with Eliquis unless instructed to do so by medical provider) monitor for signs of bleeding start taking multaq Call to schedule follow-up appointment with Cardiology for further workup call to schedule followup appointment with your primary care provider Assessment: see discharge summary
--- NOTE | 2024-03-22 11:24 | P.CONCA_ITS ---
History of Present Illness History of Present Illness Date of Service: 03/22/24 Requesting physician: Shandra Choi Consult reason: chest pain and atrial fibrillation Chief complaint: Palpitations Narrative: I was consulted to see Melissa in cardiology consultation today. He is a pleasant 84-year-old male who says been pretty active at home still cleans his own snow and remains active with history of diabetes hyperlipidemia with no prior cardiac history. He said he was eating his ice cream yesterday and suddenly developed chest tightness radiating from down from his neck to the left side of his chest which was severe in nature associated with rapid heart rate. He came to the emergency room was noted to be in atrial fibrillation rapid ventricular response. He was then treated with rate lowering medication and converted to sinus rhythm. Today he says he feels better and back to his baseline. However he was very concerned about his new diagnose of atrial fibrillation. He was started on Eliquis therapy. He says he has never had any other heart issues. No coronary artery disease and myocardial infarction. No history of congestive heart failure. No history of stroke. Review of Systems 2 Constitutional: Constitutional: Reports no additional constitutional complaints Eyes: Eyes: Reports no additional eye complaints Cardiovascular: Cardiovascular: Reports chest pain at rest, Denies chest pain with activity, Denies leg edema, Denies lightheadedness, Denies Loss of Consciousness, Reports palpitations and Denies dyspnea Respiratory: Respiratory: Reports no additional respiratory complaints and Denies dyspnea Gastrointestinal: Gastrointestinal: Reports no additional gastrointestinal complaints Genitourinary: Genitourinary: Reports no additional male genitourinary complaints Musculoskeletal: Musculoskeletal: Reports no additional musculoskeletal complaints Integumentary/Breasts: Skin/Breast: Reports system reviewed and no additional complaints, except as docu Neurologic: Reports system reviewed and no additional complaints, except as documented Psychiatric: Psychiatric: Reports no additional psychiatric complaints Endocrine: Endocrine: Reports palpitations PMFSH Past Medical History Medical History Gout Noncompliance with medication regimen Vitamin D deficiency Allergic rhinitis Benign prostatic hyperplasia Dyslipidemia Diabetes mellitus with microalbuminuria, without long-term current use of insulin Family History Family History Father HTN (hypertension) Son Diabetes mellitus Daughter No problems noted. Daughter No problems noted. Daughter No problems noted. Surgical History Surgical History Hx of cholecystectomy History of bladder surgery Social History Social History Housing: House Alcohol intake: never Patient Tobacco Use Status: Former Tobacco user Years Smoked: 12 yrs Smoked in Last 30 Days: No e-Cigarette/Vaping Use: Never Used Use of substances other than those prescribed or required for medical reasons: No Advance Directives: No Advance Directives Information Provided: Yes Do you have a plan to hurt others: No Plan Current occupational status: retired Cognitive needs: No Hearing needs: No Vision needs: Yes Meds Allergies Allergy/AdvReac Type Severity Reaction Status Date / Time penicillin V Allergy Unknown itching Verified 03/21/24 21:33 Active Medications: Current Medications Acetaminophen (Acetaminophen 325 Mg Tablet) 650 mg PO Q6H PRN PRN Reason: Pain, Mild 1-3,fever,headache Apixaban (Apixaban 5 Mg Tablet) 5 mg PO BID [facility] Last Admin: 03/22/24 08:43 Dose: 5 mg Calcium Carbonate (Calcium Carbonate 750 Mg Tab.Chew) 750 mg PO Q4H PRN PRN Reason: Heartburn Dextrose (Dextrose 50 % 25 Gm/50 Ml Syringe) 25 gm IVPUSH Q15M PRN; Protocol PRN Reason: per Hypoglycemia Standing Ord. Glucose (Glucose Gel 15 Gm Gel..Gram.) 15 gm PO Q15M PRN; Protocol PRN Reason: per Hypoglycemia Standing Ord. Insulin Human Lispro (Insulin Lispro 100 Unit/Ml 3 Ml Vial) 0 [facility]; Protocol Last Admin: 03/22/24 07:33 Dose: 2 unit Magnesium Hydroxide (Milk Of Magnesia 30 Ml Oral.Susp) 30 ml PO DAILY PRN PRN Reason: Constipation Melatonin (Melatonin 3 Mg Tablet) 6 mg PO BEDTIME PRN PRN Reason: Insomnia Ondansetron HCl (Ondansetron Hcl 4 Mg/2 Ml Vial) 4 mg IVPUSH Q8H PRN PRN Reason: Nausea and Vomiting Sodium Chloride (0.9 % Sodium Chloride Flush 3 Ml Syringe) [facility] Last Admin: 03/22/24 07:36 Dose: 3 ml Home Medications ?Medication ?Instructions ?Recorded ?Confirmed ?Last Taken ?Type aspirin 325 mg tablet 650 mg PO Q4-6H PRN Pain 03/22/24 03/22/24 Unknown History cholecalciferol (vitamin D3) 25 25 mcg PO DAILY 03/22/24 03/22/24 2 Days Ago History mcg (1,000 unit) tablet (Vitamin ~03/20/24 D3) Physical Exam 2 Vital Signs: Vital Signs: Last Vital Signs Temp 98.2 F 03/22/24 04:40 Pulse 67 03/22/24 08:06 Resp 16 03/22/24 08:06 BP 123/64 03/22/24 08:06 Pulse Ox 95 03/22/24 04:40 O2 Del Method Room Air 03/22/24 04:40 BMI result Body Mass Index 25.5 Const: General: cooperative, comfortable, no acute distress, alert, awake and Physically active Nutritional Appearance: average body habitus O rientation/consciousness: patient oriented x3 Limitations: no limitations HEENT: Head: Yes normocephalic and Yes atraumatic Neck: Neck: Yes trachea midline, Yes supple and Yes no JVD Resp: Effort & Inspection: normal respiratory effort Auscultation: clear to auscultation bilaterally Cardio: Jugular venous distension: no JVD Rate: regular rate Rhythm: r egular rhythm Heart sounds: S1 normal heart sound present, S2 normal heart sound present, no click, no gallops, no murmurs and no rubs GI: Auscultation: normal bowel sounds Skin: General skin exam: no rashes or lesions noted Neuro: General: patient oriented x3 and no focal motor deficits Extrem: General: Yes no clubbing, cyanosis or edema Psych: Appearance: grossly normal Affect: Anxious affect present Objective Labs and Meds 03/22/24 05:09 03/22/24 05:09 Lab results: Laboratory Results - last 24 hr 03/21/24 03/21/24 03/21/24 21:54 21:55 22:28 WBC 7.4 RBC 4.21 L Hgb 13.7 L Hct 38.0 L MCV 90.3 MCH 32.5 MCHC 36.1 H RDW 12.3 Plt Count 205 MPV 9.0 L Immature Gran % (Auto) 0.3 Neut % (Auto) 60.3 Lymph % (Auto) 30.9 [place] % (Auto) 5.6 Eos % (Auto) 2.2 Baso % (Auto) 0.7 Lymph # (Auto) 2.3 [place] # (Auto) 0.4 Eos # (Auto) 0.2 Baso # (Auto) 0.1 Abs Immat Gran (auto) 0.02 Absolute Neuts (auto) 4.4 Absolute Nucleated RBC 0.000 Nucleated RBC % (auto) 0.0 PT 10.9 INR 0.9 APTT 34.7 Sodium 140 Potassium 3.8 Chloride 111 H Carbon Dioxide 20 L Anion Gap 13 BUN 14 Creatinine 0.84 Estim Creat Clear Calc 67.5 Estimated GFR > 60 POC Glucose Random Glucose 220 H Calcium 8.9 D Total Bilirubin 0.5 AST 20 ALT 17 Alkaline Phosphatase 73 Troponin I High Sens < 2.7 Total Protein 7.4 Albumin 3.6 TSH Influenza Type A (PCR) NEGATIVE Influenza Type B (PCR) NEGATIVE RSV RNA Qual (PCR) NEGATIVE SARS-CoV-2 RNA (RT-PCR) NEGATIVE 03/21/24 03/22/24 03/22/24 23:35 05:09 07:05 WBC 8.0 RBC 4.22 L Hgb 13.4 L Hct 38.9 L MCV 92.2 MCH 31.8 MCHC 34.4 RDW 12.4 Plt Count 214 MPV 9.3 L Immature Gran % (Auto) Neut % (Auto) Lymph % (Auto) [place] % (Auto) Eos % (Auto) Baso % (Auto) Lymph # (Auto) [place] # (Auto) Eos # (Auto) Baso # (Auto) Abs Immat Gran (auto) Absolute Neuts (auto) Absolute Nucleated RBC 0.000 Nucleated RBC % (auto) 0.0 PT INR APTT Sodium 140 Potassium 3.6 Chloride 109 H Carbon Dioxide 25 Anion Gap 10 L BUN 13 Creatinine 0.78 Estim Creat Clear Calc 72.7 Estimated GFR > 60 POC Glucose 114 163 H Random Glucose 166 H Calcium 9.1 Total Bilirubin AST ALT Alkaline Phosphatase Troponin I High Sens Total Protein Albumin TSH 1.19 Influenza Type A (PCR) Influenza Type B (PCR) RSV RNA Qual (PCR) SARS-CoV-2 RNA (RT-PCR) Assessment and Plan (1) Paroxysmal atrial fibrillation: Status: Acute Patient presents with highly symptomatic episode of atrial fibrillation but associated with chest tightness and palpitations. Add to come to the emergency room for the same. He has never had similar symptoms in the past although has occasional palpitation in the past. High risk for recurrent atrial fibrillation. I think to avoid recurrent hospitalization ED presentation I would start him on antiarrhythmic drug therapy with Multaq 400 mg b.i.d.. Avoidance of stimulants was discussed. Stress mitigation strategies was discussed. Agree with oral anticoagulation therapy with Eliquis 5 mg b.i.d.. Discussed with the patient about importance of medical therapy and compliance with medical therapy. Given his risk factors will require stress testing as outpatient as soon as possible. Echocardiogram is performed and will be reviewed. Patient can be discharged from cardiac perspective. Procedures Date of Service Date of Service: 03/22/24
[2024-03-22 13:10] VITALS: BP 149/59; PULSE 60; RESP 18; O2SAT 96
== END 2024-03-22 13:09 | disposition home or self-care (01) | DRG 310 ==
LOC: HO.ED 22:19 → HO.EDOVER 22:57 → HO.IMC 03-22 09:50 → HO.EDOVER 03-22 10:00
PROVIDERS: Admitting Provider Student in an Organized Health Care Education/Training Program; Emergency Provider Internal Medicine; PCP Internal Medicine; Visit Provider Physician Assistant Medical
DX: I48.0 Paroxysmal atrial fibrillation (principal); J44.9 Chronic obstructive pulmonary disease, unspecified; E78.2 Mixed hyperlipidemia; E11.65 Type 2 diabetes mellitus with hyperglycemia; N40.0 Benign prostatic hyperplasia without lower urinary tract symptoms; M10.9 Gout, unspecified; Z20.822 Contact with and (suspected) exposure to COVID-19; Z87.891 Personal history of nicotine dependence; Z79.51 Long term (current) use of inhaled steroids; Z79.899 Other long term (current) drug therapy
CPT/HCPCS: 0241U; 36415; 71045; 80048; 80053; 82947; 84443; 84484; 85025; 85027; 85610; 85730; 93005; 93306; 99222; 99285; Q9957

== ENCOUNTER → 2024-03-21 21:35 | Outpatient (BNV) | payer OTHER, SELFPAY | PROVIDERS: Admitting Provider Student in an Organized Health Care Education/Training Program; Emergency Provider Internal Medicine; PCP Internal Medicine; Visit Provider Radiology Diagnostic Radiology | DX: R06.02 Shortness of breath (principal) | CPT/HCPCS: 71045 ==

== ENCOUNTER → 2024-03-21 21:43 | Outpatient (BNV) | payer OTHER, SELFPAY | PROVIDERS: Admitting Provider Student in an Organized Health Care Education/Training Program; Emergency Provider Internal Medicine; PCP Internal Medicine; Visit Provider Internal Medicine Cardiovascular Disease | DX: I48.91 Unspecified atrial fibrillation (principal) | CPT/HCPCS: 93010 ==

== ENCOUNTER → 2024-03-21 22:15 | Outpatient (BNV) | payer OTHER, SELFPAY | PROVIDERS: Emergency Provider Internal Medicine; PCP Internal Medicine; Visit Provider Student in an Organized Health Care Education/Training Program | DX: I48.91 Unspecified atrial fibrillation (principal) | CPT/HCPCS: 99222; 99239 ==

== ENCOUNTER 2024-03-21 22:30 | Outpatient (BNV) | payer OTHER, SELFPAY | END 2024-03-22 08:36 | PROVIDERS: Admitting Provider Student in an Organized Health Care Education/Training Program; Emergency Provider Internal Medicine; PCP Internal Medicine; Visit Provider Internal Medicine Cardiovascular Disease | DX: R94.31 Abnormal electrocardiogram [ECG] [EKG] (principal); I48.91 Unspecified atrial fibrillation | CPT/HCPCS: 93306 ==

== ENCOUNTER → 2024-03-21 22:30 | Outpatient (BNV) | payer OTHER, SELFPAY | PROVIDERS: Admitting Provider Student in an Organized Health Care Education/Training Program; Emergency Provider Internal Medicine; PCP Internal Medicine; Visit Provider Internal Medicine Cardiovascular Disease | DX: I48.0 Paroxysmal atrial fibrillation (principal) | CPT/HCPCS: 99222 ==

== ENCOUNTER → 2024-03-23 08:04 | Outpatient (REF) | payer OTHER, SELFPAY ==
--- OUTSIDE RECORDS SUMMARY | 2024-03-23 08:06 | XMS_ITS | Patient Health Record ---
Author Organization [facility] Address [address] [place] [address] Care Team Providers Care Analytics Associate Name Role Phone Courtney CARRION, Kelsy Terry Primary Care Provider Un available Barbie, Jamari Unavailable [phone] Allergies Allergen (clinical drug ingredient) Drug/Non Drug Allergy documented on EMR Reaction Allergy Type Onset Date Status amoxicillin Amoxicillin Unknown Drug Allergy Act tina Penicillin rash Drug Allergy Active Pollen Pollen sneezing Allergy Active Reason For Referral No Information Medications Medication SIG (Take, Route, Frequency, Duration) Notes Start Date End Date Status lipitor 10mg Not-Tayo ing Finasteride 1 tablet Once a day Active Loratadine 10 MG as directed Orally PRN Active Flonase Active Flomax Active Extra Depth Orthopedic Shoes (1 Pair) with Customized Heat Molded Multidensity Innersoles (3 Pair) as directed Dx: NIDDM/Polyneuropathy (E11.42), Hammertoe Foot Deformity (M20.41,M20.42), Preulcerative Skin Lesion(s) (L85.1 10/11/2023 Active Atorvastatin Calcium 20 MG 1 tablet Orally Once a day for 30 day(s) Active Allopurinol Prn Not-Taki ng Fluticasone Propionate Not-Taking metFORMIN HCl 500 MG Orally twice a day Not-Taking Tamsulosin HCl Not-T aking Immunizations Vaccine Route Administration Date Status Comme nts COVID-19 Tyron [employer] Tyron/Kaila Unknown 06/30/2021 R efused Influenza Unknown 02/08/2020 Administered Influenza Unknown 10/11/2023 Refused Social History Tobacco Use: Social History Observation Description Date Details (start date - stop date) Former Smoker NA - NA Tobacco Use/Smoking Question Answer Notes Are you a: former smoker Additional Findings: Tobacco Non-User Ex-cigaret te smoker Alcohol Screen Question Answer Notes Did you have a drink containing alcohol in the p ast year? No Points 0 Interpretation Negative Tobacco use other than smoking: Question Answer Notes Are you an other tobacco user? No Problems Problem Type SNOMED Code ICD Code Onset Dates Problem Status W/U Status Risk Notes Problem Acquired hammer toe of right foot (5353590758863794 ) Other hammer toe(s) (acquired), right foot (M20.41) Active confirmed Response to treatment, Improvemen t Problem Acquired hammer toe of left foot (4548384986540732 ) Other hammer toe(s) (acquired), left foot (M20.42) Active confirmed Response to treatment, Improvemen t Problem Polyneuropathy due to type 2 diabetes mellitus (815024249) Type 2 diabetes mellitus with diabetic polyneuropathy (E11.42) Active confirmed Vital Signs Blood pressure diastolic 73 mm Hg 10/11/2023 Height 5 ft 8 in in 10/11/2023 Blood pressure systolic 118 mm Hg 10/11/2023 Weight 174 lbs 10/11/2023 BMI 26.45 kg/m2 10/11/2023 Procedures Procedure Date Ordered Date Performed Result Body Sit e 78663-FACYQYV NAIL, 6 OR MORE 04/08/2023 N/A 67330-Tjyfmkfm Plate 04/08/2023 N/A 80391-Jkdjuzhc Plate Each Additional 04/08/2023 N/A 18750-CHXGPME NAIL, 6 OR MORE 10/11/2023 N/A 77440-Xzvpdzrb Plate 10/11/2023 N/A 58833-PCMB SKIN LESIONS, 2 TO 4 10/11/2023 N/A Encounters Encounter Location Date Provider Diagnosis [facility] [address] [address] 04/08/2023 Jamari Valentin Type 2 diabetes mellitus with diabetic polyneuropathy E11.42 ; Tinea unguium B35.1 ; Ingrown nail L60.0 ; Other hammer toe(s) (acquired), right foot M20.41 and Other hammer toe(s) (acquired), left foot M20.42 [facility] [address] [address] 10/11/2023 Jamari Valentin Type 2 diabetes mellitus with diabetic polyneuropathy E11.42 ; Tinea unguium B35.1 ; Other hammer toe(s) (acquired), right foot M20.41 ; Other hammer toe(s) (acquired), left foot M20.42 and Ingrown nail L60.0 [facility] [address] [address] [place] [address] 03/25/2023 Jamari Makier Assessments Encounter Date Diagnosis (ICD Code) Assessment Notes Treatment Notes Treatment Clinical Notes Section Notes 04/08/2023 Type 2 diabetes mellitus with diabetic polyneuropathy (ICD-10 - E11.42) 04/08/2023 Tinea unguium (ICD-10 - B35.1) 10/11/2023 Type 2 diabetes mellitus with diabetic polyneuropathy (ICD-10 - E11.42) 10/11/2023 Tinea unguium (ICD-10 - B35.1) 04/08/2023 Ingrown nail (ICD-10 - L60.0) 10/11/2023 Other hammer toe(s) (acquired), right foot (ICD-10 - M20.41) Patient Educated with: DIABETIC FOOT CARE INSTRUCTIONS. pdf (DIABETIC FOOT CARE INSTRUCTIONS. pdf) 10/11/2023 Other hammer toe(s) (acquired), left foot (ICD-10 - M20.42) 04/08/2023 Other hammer toe(s) (acquired), right foot (ICD-10 - M20.41) Response to treatment,Impro vement 04/08/2023 Other hammer toe(s) (acquired), left foot (ICD-10 - M20.42) Response to treatment,Impro vement 10/11/2023 Ingrown nail (ICD-10 - L60.0) Plan Of Treatment Pending Test Test Name Order Date 45228-YSFOKPI NAIL, 6 OR MORE 12/13/2017 67306-JMOVAHG NAIL, 6 OR MORE 03/14/2018 77374-VAPAYLJ NAIL, 6 OR MORE 06/13/2018 19715-UKMSCGW NAIL, 6 OR MORE 06/30/2021 14995-FELFLFM NAIL, 6 OR MORE 02/16/2022 17983-BWEWKQH NAIL, 6 OR MORE 07/20/2022 43483-QPFOXMN NAIL, 6 OR MORE 04/08/2023 65165-NLTECTJ NAIL, 6 OR MORE 10/11/2023 12596-Cnooblbq Plate 04/08/2023 95739-Vcjpolco Plate 10/11/2023 25511-Xpckjmke Plate 07/20/2022 74911-Mauzbvzu Plate 02/16/2022 49952-Xvrtxsro Plate 06/30/2021 19842-Xgtpnpgr Plate Each Additional 44197-Mluwwqlt Plate Each Additional 11/2022 34142-Zyfihpdw Plate Each Additional 66228-Scvvaxxu Plate Each Additional 02/2023 62836-OSSI SKIN LESIONS, 2 TO 4 10/11/19 24 64216-ILKK SKIN LESIONS, 2 TO 4 07/21/19 23 92702-OGRW SKIN LESIONS, 2 TO 4 02/16/19 23 08941-EKEW SKIN LESIONS, 2 TO 4 07/01/19 22 33451-SKXN SKIN LESIONS, 2 TO 4 06/14/19 19 Next Appt Details Provider Name:Jamari Valentin , 04/10/2024 01:45:00 PM, [address] [place], [address], Insurance Providers Payer Name Payer Address Payer Phone Subscriber Number Group Number Insured Name Patient Relationship to Insured Coverage Start Date Coverage End Date [facility] [address] [address] [place] [address] [phone] [id number] [facility] Anderson Sampson Self - patient is the insured [employer] [address] [place] [address] [phone] [id number] Anderson Sampson Self - patient is the insured 6 Medical (General) History Medical History History ICD Code Arthritis Back,Hip,and Knee pain Broken bones, thumb cholesterol cataracts, small type II diabetes Gall bladder problems Gout High blood pressure Reflux Sciatica chronic sinusitis Measles Mumps Transfusions Herniated disc nerve disorder Poor circulation Chicken pox Surgical History Surgery Date(Month/Year) bladder surgery 11/1941 gall stones 10/1981 gall bladder, removed Hospitalization History Reason Date(Month/Year) [facility]- Covid 08/2023
--- OUTSIDE RECORDS SUMMARY | 2024-03-23 08:06 | XMS_ITS ---
Author Organization [facility] Address [address] [place] [address] Care Team Providers Care Machine Featheredger And Reducer Name Role Phone Courtney CARRION, Kelsy Terry Primary Care Provider Un available Jamari Valentin Unavailable [phone] Encounters Encounter Location Date Provider Diagnosis [address] [address] 03/29/2023 Jamari Valentin Plan Of Treatment Next Appt Details Provider Name:Jamari Valentin , 04/10/2024 01:45:00 PM, [address] [place], [address], Progress Notes * ADRIÁNAnderson UDOB:1939 (84 yo M)Acc No.[id number]:03/29/2023 Progress Note Patient:?Anderson SAMPSON Provider:?Jamari Valentin DPM :1940???Age:83 Y???Sex:Male Andrea e:03/29/2023 Address:[address] [place] [address] [place] Pcp:Dawn Morrison Subjective: * Chief Complaints: * ??? * Medical History:? Objective: * Vitals:? Assessment: Plan: * Treatment: * Images: * The named appointment provid er may or may not be the originator of this progress note, and it is not deemed complete until electronically signed by the appointment provider. Sign off status: Pending * Provider:?Jamari Valentin DPM Date:?2023 Generated for Gregorio sands/Boby/Molly on:?03/23/2024 08:06 AM EST
--- OUTSIDE RECORDS SUMMARY | 2024-03-23 08:06 | XMS_ITS ---
Author Organization [facility] [place] Address [address] [place] [address] Care Team Providers Care Woods Superintendent Name Role Phone Courtney CARRION, Kelsy Terry Primary Care Provider Un available Barbie, Jamari Unavailable [phone] Allergies Allergen (clinical drug ingredient) Drug/Non Drug Allergy documented on EMR Reaction Allergy Type Onset Date Status Amoxicillin Unknown Drug Allergy Activ e Penicillin rash Drug Allergy Active Pollen Pollen sneezing Allergy Active REASON FOR VISIT At Risk Footcare, Toe Irritation, Ingrown Nail Medications Medication SIG (Take, Route, Frequency, Duration) Notes Start Date End Date Status Extra Depth Orthopedic Shoes (1 Pair) with Customized Heat Molded Multidensity Innersoles (3 Pair) as directed Dx: NIDDM/Polyneuropathy (E11.42), Hammertoe Foot Deformity (M20.41,M20.42), Preulcerative Skin Lesion(s) (L85.1 10/11/2023 Active Allopurinol Prn Not-Taki ng Fluticasone Propionate Not-Taking metFORMIN HCl 500 MG Orally twice a day Not-Taking Tamsulosin HCl Not-T aking lipitor 10mg Not-Tayo ing Finasteride 1 tablet Once a day Active Loratadine 10 MG as directed Orally PRN Active Flonase Active Flomax Active Atorvastatin Calcium 20 MG 1 tablet Orally Once a day for 30 day(s) Active Immunizations Vaccine Route Administration Date Status Comme nts Influenza Unknown 10/11/2023 Refused Social History Tobacco Use: Social History Observation Description Date Details (start date - stop date) Former Smoker NA - NA Tobacco Use/Smoking Question Answer Notes Are you a: former smoker Additional Findings: Tobacco Non-User Ex-cigaret te smoker Tobacco use other than smoking: Question Answer Notes Are you an other tobacco user? No Vital Signs Height 5 ft 8 in in 10/11/2023 Weight 174 lbs 10/11/2023 BMI 26.45 kg/m2 10/11/2023 Blood pressure systolic 118 mm Hg 10/11/19 24 Blood pressure diastolic 73 mm Hg 024 Procedures Procedure Date Ordered Date Performed Result Body Sit e 85910-NZMSQBD NAIL, 6 OR MORE 10/11/2023 N/A 27332-Alsosxda Plate 10/11/2023 N/A 37383-IASD SKIN LESIONS, 2 TO 4 10/11/2023 N/A Encounters Encounter Location Date Provider Diagnosis [facility] [place] [address] [place] [address] 10/11/2023 Jamari Valentin Type 2 diabetes mellitus with diabetic polyneuropathy E11.42 ; Tinea unguium B35.1 ; Other hammer toe(s) (acquired), right foot M20.41 ; Other hammer toe(s) (acquired), left foot M20.42 and Ingrown nail L60.0 Assessments Encounter Date Diagnosis (ICD Code) Assessment Notes Treatment Notes Treatment Clinical Notes Section Notes 10/11/2023 Type 2 diabetes mellitus with diabetic polyneuropathy (ICD-10 - E11.42) 10/11/2023 Tinea unguium (ICD-10 - B35.1) 10/11/2023 Other hammer toe(s) (acquired), right foot (ICD-10 - M20.41) Patient Educated with: DIABETIC FOOT CARE INSTRUCTIONS. pdf (DIABETIC FOOT CARE INSTRUCTIONS. pdf) 10/11/2023 Other hammer toe(s) (acquired), left foot (ICD-10 - M20.42) 10/11/2023 Ingrown nail (ICD-10 - L60.0) Plan Of Treatment Medication Medication Name Sig Start Date Stop Date Notes Extra Depth Orthopedic Shoes (1 Pair) with Customized Heat Molded Multidensity Innersoles (3 Pair) as directed Dx: NIDDM/Polyneuropathy (E11.42), Hammertoe Foot Deformity (M20.41,M20.42), Preulcerative Skin Lesion(s) (L85.1 10/11/2023 Treatment Notes Assessment Notes Other hammer toe(s) (acquired), right fo ot Patient Educated with: DIABETIC FOOT CARE INSTRUCTIONS.pdf (DIABETIC FOOT CARE INSTRUCTIONS.pdf) Pending Test Test Name Order Date 31447-GXSBWJQ NAIL, 6 OR MORE 10/11/2023 53513-Hxllbkaz Plate 10/11/2023 99696-FCHG SKIN LESIONS, 2 TO 4 10/11/19 24 Next Appt Details Follow Up: prn, Reason: Provider Name:Jamari Valentin , 04/10/2024 01:45:00 PM, [address] [place] [address], [id number], Procedure Notes * Category Sub-Category Detail Notes Nail Avulsion Procedure A fine sterile e levator was placed between the eponychium, nail fold, and nail plate to separate the structures. A sterile nail splitter, and/or sterile 316 blade, was then used to longitudinally section the nail along its entire length through the eponychium to the area under the nail fold. The offending portion of nail was from the nail bed with a rolling action and then removed with a hemostat. No underlying bone was identified. There was minimal bleeding as hemostasis was achieved through the temporary use of either a digital tourniquet or the aforementioned local with epinephrine. A bacitracin sterile dressing was applied. Local wound aftercare instructions were discussed and dispensed. The patient was informed of both conservative and future surgical procedures to prevent recurrence. Tylenol or Motrin was recommended for pain or discomfort (19426) , DIABETES: Pt was advised as to the risk of delayed or nonhealing due to diabetes. Pt is to call the office with any questions, concerns, or complications Anesthesia was deferred - NEURO LORI: patient has medically documented neuropathic condition affecting sensation Location Lateral nail border, T5 Debride Nail 6-10 Nail debridement Performance o f this nail treatment by a nonprofessional would put this patients foot and overall health at risk. Therefore, nail debridement was performed extensively to reduce/remove overall nail length, girth, thickness, subungual debris, and necrotic tissue, by manual and/or electrical means through the use of a nail nipper and/or dremel-type edge grinder machine, to a more viable healthy nail plate or bed tissue 6-10. Silver nitrate used for any petechial bleeding as necessary. Definitive antifungal treatment options have been reviewed and discussed with the patient. The patient chooses, no pharmaceutical tx - 36369 Keratoma Treatment Parring or Cutting o f Benign Hyperkeratotic Lesion(s) 37428 ( 2-4 Lesions ) - The Benign hyperkeratotic lesions, as described above were pared, and/or cut utilizing a sterile 15 blade, tissue nippers, and/or dremel - 48335 Progress Notes * Anderson SAMPSON UDOB:1939 (83 yo M)Acc No.[id number]:10/11/2023 Progress Note Patient:?Anderson Sampson U Provider:?Jamari Valentin DPM :1940???Age:83 Y???Sex:Male Andrea e:10/11/2023 [address] [place], [place] [address] Pcp:Dawn Morrison Subjective: * Chief Complaints: * ???At Risk FootcareToe Irrit ationIngrown Nail * HPI: ???At Risk footcare:?Pt States Last PCP Visit:?Date?04/27/2023 ???Toe pain:?Location:?B/L feet.?Duration:?several years.?Course:?worse.?Aggravated by:?shoes, any pressure.?Treatments:?change in shoes.? * ROS:?General/Constitutional:?Nausea?denies.?Vomiting?denies.?Hunger Thirst?denies.?Loss appetite?denies.?Chills?denies.?Fatigue?denies.?Fever?denies.?Night Sweats?denies.?Unexplained weight loss?denies.?Unexplained weight gain?denies.?HEENTM:?Dentures?admits.?Dizziness?denies.?Glasses/contacts?admits.?Retinopathy?de nies.?Blurred/double vision?denies.?TMJ?denies.?Discharge/drainage?denies.?Implants?denies.?Sore throat?denies.?Dental implants?admits.?Hard of hearing ?denies.?Difficulty chewing/swallowing/speaking?denies.?Nose bleeds?denies.?Sore mouth?denies.?Respiratory:?On Oxygen?denies.?Pneumonia/pleurisy?denies.?Bronchitis?denies.?Emphysema?denies.?C oughing?denies.?Cough blood?denies.?Shortness of breath?denies.?Wheezing?denies.?Cardiovascular:?Pacemaker?denies.?MVP?denies.?WPW?denies.?CHF?denies.?Heart attack?denies.?Septal defect?denies.?Rapid beat?denies.?Chest pain ?denies.?Atrial Fib.?denies.?Murmur/Palpitations?denies.?Gastrointestinal:?Hemorrhoids?denies.?Stomach/Abdominal pain?denies.?Dark blood stool?denies.?Irritable bowel ?denies.?Constipation?denies.?Diarrhea?denies.?Hematology:?Swelling?admits.?Clots?denies.?Varicose Veins?admits.?Bruising?denies.?Bleeding problem?denies.?Genitourinary:?Blood urine?denies.?Frequent/Painfu/urination/bladder control?admits.?Kidney stones?denies.?Infection (UTI)?denies.?Nephropathy?denies.?sex trans dis (STD)?denies.?Prostate?denies.?Musculoskeletal:?Hammertoes?admits.?Bunions?denies.?Back Pain?denies.?Muscle Cramps/ Resting?denies.?Muscle cramps / walking?denies.?Generalized aches and pains?denies.?Weakness?denies.?Integ.:?Morrissey?denies.?Scars?denies.?Corns/calluses?admits.?Ingrown nails?admits.?Painful nails?denies.?Open Sores?denies.?Rashes?denies.?Neurologic:?Difficulty sleeping?admits.?Brain disorder?denies.?Numbness?admits.?Balance trouble?admits.?Confusion?denies.?Fainting/blackouts?denies.?Tingling?denies.?Tr emors?denies.? * Medical History:? * Surgical History:?bladder armenta rgery 11/1941gall stones 10/1981gall bladder, removed * Hospitalization/Major Diagno stic Procedure:?[facility] [place]- Covid 08/2023 * Family History:?Mother: dece ased.?Father: .? * Social History:?Tobacco Use:?Tobacco Use/Smoking?Are you a:?former smoker ?Additional Findings: Tobacco Non-User?Ex-cigarette smoker ?Tobacco use other than smoking?Are you an other tobacco user??No ???Miscellaneous:?Caffeine: yes, coffee,tea , 1-2 cups per day. ?Children: yes. ?Exercise: yes, Shopping, driving car, gardening. ?Marital status: . 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 * Medications:?TakingAtorvasta tin Calcium 20 MG Tablet 1 tablet Orally Once a dayFlonase Flomax Finasteride 1 tablet Once a dayLoratadine 10 MG Tablet as directed Orally , Notes: PRNTaking Atorvastatin Calcium 20 MG Tablet 1 tablet Orally Once a dayTaking Flonase Taking Flomax Taking Finasteride 1 tablet Once a dayTaking Loratadine 10 MG Tablet as directed Orally , Notes: PRNNot-Taking/PRNlipitor 10mg metFORMIN HCl 500 MG Tablet Orally twice a dayTamsulosin HCl Allopurinol PrnFluticasone Propionate Medication List reviewed and reconciled with the patientNot-Taking/PRN lipitor 10mg Not-Taking/PRN metFORMIN HCl 500 MG Tablet Orally twice a dayNot-Taking/PRN Tamsulosin HCl Not-Taking/PRN Allopurinol PrnNot- Taking/PRN Fluticasone Propionate Medication List reviewed and reconciled with the patient * Allergies:?AmoxicillinPenici llin: rashPollen: sneezingyes[Allergies Verified] Objective: * Vitals:?Ht: 5 ft 8 in, Wt: 1 74, BMI: 26.45, Shoe size: 11W, BP: 118/73 mm Hg, BS: not taken, Wt-k.93 kg. * Examination: ???Neurological: ?SENSORY:? Neurological exam demonstrates, reduced light touch sensation, reduced sharp/dull pin prick discrimination , B/L, 5.07 monofilament test performed at plantar aspects of 5 varied sites per foot shows sensation, reduced , B/L.?Nails: ?NAILS are:?Elongated, overgrown, dystrophic, lytic, greater than 3mm thick, discolored and friable with crumbly malodorous subungual debris, 1-5 Left foot, T5, T6, T7, T9.?Ingrown Nail: ?INSPECTION:?Reveals nail incurvation, dull pain on palpation due to neuropathy, groove hypertrophy, Lateral nail border, T5.?Dermatologic: ?SKIN FINDINGS:?Skin exam reveals Keratotic lesion(s) located at, Heel(s), B/L.?Orthopedic: ?MUSCLE STRENGTH:?5/5 all groups in a symmetrical fashion , B/L.?GAIT ABNORMALITY:?apropulsive , cane-assisted.?FOOT MORPHOLOGY:?Pes Planus structure, No Charcot collapse/destruction noted at MTJ.?DIGITAL DEFORMITIES:?Digital contracture, PIPJ, 2-5 B/L, incompl-reducible to push-up test, no over, nor underlapping , with evidence of shoe producing skin irritation.?FOOTWEAR:?worn, OT were inspected and noted to be severely worn , in poor condition not giving proper support at the present time , shoe gear properties exacerbate patients foot/toe deformity.?Vascular: ?DP PULSES:?0/4, B/L.?PT PULSES:? 0/4, B/L.?CAPILLARY FILL TIME:?delayed, all digits, B/L.?SKIN TEMPERTURE GRADIENT OF THE LOWER EXTERMITIES:? decreased, cool to cool, proximal to distal, B/L.?HAIR GROWTH/TEXTURE/ELASTICITY/TURGOR:? decreased, B/L.?PIGMENTATION:?normal, B/L.?EDEMA:? 1/4, pitting, without aching pain, B/L, Leg(s), Ankle(s).?CLAUDICATION:?denies, B/L.?REST PAIN:?denies, B/L.?Ophthalmology Referral: ?DIABETES EYE EXAM?General Examination: ?GENERAL APPEARANCE:?Reveals a pleasant, alert, well nourished, well developed, well hydrated individual, who demonstrates proper attention to hygiene/body habitus, and is in no acute distress , Pt serves as own historian for office visit today.?ORIENTED:?person, place, and time.?FOOT EXAM:?Footwear Evaluation? Assessment: * Assessment: 1.?Type 2 diabetes mellitus with diabetic polyneuropathy - E11.42 (Primary)?2.?Tinea unguium - B35.1?3.?Other hammer toe(s) (acquired), right foot - M20.41, Chronic problem, Worse (4),Rx Management (4)?4.?Other hammer toe(s) (acquired), left foot - M20.42, Chronic problem, Worse (4),Rx Management (4)?5.?Ingrown nail - L60.0, Lateral nail border, T5? Plan: * Treatment: 2.?Other hammer toe(s) (acqu ired), right foot? Start Extra Depth Orthopedic Shoes (1 Pair) with Customized Heat Molded Multidensity Innersoles (3 Pair), as directed, Dx: NIDDM/Polyneuropathy (E11.42), Hammertoe Foot Deformity (M20.41,M20.42), Preulcerative Skin Lesion(s) (L85.1, 1, Refills 0.?? Notes: Patient Educated with: DIABETIC FOOT CARE INSTRUCTIONS.pdf (DIABETIC FOOT CARE INSTRUCTIONS.pdf)?? 3.?Ingrown nail?Procedure: 99771-Yadnivkf Plate * Procedures:?Debride Nail 6-10:?Nail debridement?Performance of this nail treatment by a nonprofessional would put this patients foot and overall health at risk. Therefore, nail debridement was performed extensively to reduce/remove overall nail length, girth, thickness, subungual debris, and necrotic tissue, by manual and/or electrical means through the use of a nail nipper and/or dremel-type edge grinder machine, to a more viable healthy nail plate or bed tissue 6-10. Silver nitrate used for any petechial bleeding as necessary. Definitive antifungal treatment options have been reviewed and discussed with the patient. The patient chooses, no pharmaceutical tx - 30048.?Keratoma Treatment:?Parring or Cutting of Benign Hyperkeratotic Lesion(s)?97841 ( 2-4 Lesions ) - The Benign hyperkeratotic lesions, as described above were pared, and/or cut utilizing a sterile 15 blade, tissue nippers, and/or dremel - 85631.?Nail Avulsion:?Location?Lateral nail border,?T5.?Anesthesia?was deferred - NEUROPATHY: patient has medically documented neuropathic condition affecting sensation.?Procedure?A fine sterile elevator was placed between the eponychium, nail fold, and nail plate to separate the structures. A sterile nail splitter, and/or sterile 316 blade, was then used to longitudinally section the nail along its entire length through the eponychium to the area under the nail fold. The offending portion of nail was from the nail bed with a rolling action and then removed with a hemostat. No underlying bone was identified. There was minimal bleeding as hemostasis was achieved through the temporary use of either a digital tourniquet or the aforementioned local with epinephrine. A bacitracin sterile dressing was applied. Local wound aftercare instructions were discussed and dispensed. The patient was informed of both conservative and future surgical procedures to prevent recurrence. Tylenol or Motrin was recommended for pain or discomfort (74332) , DIABETES: Pt was advised as to the risk of delayed or nonhealing due to diabetes. Pt is to call the office with any questions, concerns, or complications.? * Immunizations:? Influenza (Not administered - Refused: Patient decision) * Procedure Codes:?18164 DEBRI DE NAIL, 6 OR MORE, Modifiers: XS 46205 Avulsion Plate, Modifiers: XS , [id number] TRIM SKIN LESIONS, 2 TO 4, Modifiers: XS * Preventive Medicine:? ??Counseling:?Discussion:?-14: Office or other outpatient visit for the evaluation and management of an established patient, which required a medically appropriate history and/or examination and MODERATE level of DECISION MAKING for: 1 OR MORE CHRONIC PROBLEM(S) THATS WORSENING, 2 STABLE CHRONIC PROBLEMS, A NEWLY DIAGNOSED PROBLEM WITH UNCERTAIN PROGNOSIS, AN ACUTE COMPLICATED INJURY WITH MULTIPLE TREATMENT OPTIONS, OR AN ACUTE PROBLEM WITH ACCOMPANYING SYSTEMIC SYMPTOMS, THAT POSE(S) A MODERATE RISK OF MORBIDITY. THIS CONDITION MAY ALSO INCLUDE RX DRUG MANAGEMENT, OR A DECISON FOR MINOR SURGERY. The visit on the day of the encounter encompassed interpreting the data and educating the patient as to the nature of their condition, treatment options available according to their individual PMH, meds, allergies, and overall health/living conditions, as well as any potential risks or complications that may occur from a failure to adhere to, and participate in, the recommended course of therapy. The discussion included a complete verbal, and/or written explanation of the examination results, any x-rays taken, the proposed diagnosis, and outline of the treatment plan. A schedule for future care needs was also explained. The patient verbalized an understanding of the instructions at this time and agreed to be an active participant in their treatment. If the patient should think of any questions or concerns after the visit, I have encouraged the patient to call the office.?Digital Surgery:?Digital surgery was discussed with the patient, We elected to try conservative treatment at the present time, due to the patients medical history and increased asssociated post-operative risks.?Digital Treatment:?HT- I explained to the patient the possible etiologies of Hammertoes, including genetics/foot type/shoegear/activity level/exercise routine and the risks/benefits of all the different treatment options for their pain including: No treatment at all, Rest, Ice, New/supportive/wider/deeper Shoegear, Digital Padding/Strapping/Taping/Bracing/Gel protective sleeves, Foot/Ankle AFO Bracing, Stretching exercises, Deep Tissue Massage, Arch support/shoe inserts with splay metatarsal padding, and Custom orthoses. I insisted that any digital devices be removed daily and not worn overnight for safety. The patient is to carefully examine the toes daily for any skin irritation while using any splinting or padding device. The advantages and disadvantages of each option were discussed and the patients questions re: shoegear, padding, custom vs prefabricated inserts, activity level, and consistency in home treatment regimens for optimal success were answered to their verbally confirmed satisfaction.?Shoe Gear Counseling:?SHOE Rx - The patient was counseled in great detail on their muscoloskeletal foot and toe deformities which coincided with the dermatological presentations visualized on exam. We discussed how their deformities put the integrity of their feet at risk for potential pedal complications which makes the accomidative diabetic shoes and cutomizable inserts medically necessary. We discussed the different shoe and insert treatment types and options, as well as the important advantages for adhering to regularly wearing these accomidative devices daily. The patient was made aware of the fact that a failure to abide by these recommedations may be deleterious to their foot health as they are able to prevent many pedal complications such as skin irritation, skin ulceration, infection, and even loss of toe/foot/leg/or life. Time was also spent with the patient dispensing and discussing proper diabetic footcare techniques including daily skin moisturization, daily foot inspection for any interruption in skin integrity including open lesions, or sign of infection such as redness/malodor/drainage/swelling. Also discussed and recommended were procedures regarding daily shoe inspection for the presence of internal foreign bodies as well as any visualized irregular shoe or insert wear. Patient questions re: shoes, inserts, and self foot inspections were answered to their satisfaction as the patient verbally confirmed a full understanding of the above information. A Rx for Extra Depth Orthopedic Shoes with 3 pair of custom heat-molded inserts was dispensed.? ??Screening/Special Tests:?Fall Risk?Assessment:?Performed ?Plan of Care:?Documented ?Screening:?No falls in the past year ?FALLS: Screening for Future Fall Risk?Have you had any falls with injury in the past year??No * Follow Up:?prn * Images: * Sign off status: Completed true * Provider:?Jamari Valentin DPM Date:?2023 Generated for Gregorio sands/Boby/Molly on:?03/23/2024 08:06 AM EST History and Physical Notes * HPI (History of Present Illness) Category Sub-Category Detail Notes Category Not es Toe pain Location: B/L feet Duration: several years Course: worse Aggravated by: shoes, any pressure Treatments: change in shoes At Risk footcare Pt States Last PCP Visit: Date: 4 Examination Category Sub-Category Detail Notes Category Not es Ingrown Nail INSPECTION: Reveals nail inc urvation, dull pain on palpation due to neuropathy, groove hypertrophy, Lateral nail border, T5 Neurological SENSORY: Neurological exa m demonstrates, reduced light touch sensation, reduced sharp/dull pin prick discrimination , B/L, 5.07 monofilament test performed at plantar aspects of 5 varied sites per foot shows sensation, reduced , B/L Dermatologic SKIN FINDINGS: Skin exam reveal s Keratotic lesion(s) located at, Heel(s), B/L Orthopedic GAIT ABNORMALITY: apropulsive , cane-assi sted FOOT MORPHOLOGY: Pes Planus structure , No Charcot collapse/destruction noted at MTJ FOOTWEAR: worn, OT were inspec lupillo and noted to be severely worn , in poor condition not giving proper support at the present time , shoe gear properties exacerbate patients foot/toe deformity DIGITAL DEFORMITIES: Digital contracture , PIPJ, 2-5 B/L, incompl-reducible to push-up test, no over, nor underlapping , with evidence of shoe producing skin irritation MUSCLE STRENGTH: 5/5 all groups in a symmetrical fashion , B/L General Examination GENERAL APPEARANCE: Reveals a pleasant, alert, well nourished, well developed, well hydrated individual, who demonstrates proper attention to hygiene/body habitus, and is in no acute distress , Pt serves as own historian for office visit today FOOT EXAM: Lower Extremity Neurological Exa m performed:: Yes ORIENTED: person, place, and t kamille Footwear Evaluation Footwear Evaluation performe d:: Yes Ophthalmology Referral DIABETES EYE EXAM Diabetic Retinopa thy Screening:: Yes Findings of Diabetic Eye Exam:: no retin opathy Vascular DP PULSES (B): 0/4, B/L PT PULSES (B): 0/4, B/L CAPILLARY FILL TIME: delayed, all digits , B/L TEMPERTURE GRADIENT (C): decreased, cool to cool, proximal to distal, B/L TROPHIC CONDITION-TEXTURE/ELASTICITY/TURGOR/HAIR GROWTH (B): decreased, B/L EDEMA (C): 1/4, pitting, withou t aching pain, B/L, Leg(s), Ankle(s) CLAUDICATION (C): denies, B/L REST PAIN: denies, B/L PIGMENTATION: normal, B/L Nails NAILS are: Elongated, overg rown, dystrophic, lytic, greater than 3mm thick, discolored and friable with crumbly malodorous subungual debris, 1-5 Left foot, T5, T6, T7, T9
--- OUTSIDE RECORDS SUMMARY | 2024-03-23 08:07 | XMS_ITS ---
Author Organization [facility] [place] Address [address] [place] [address] Care Team Providers Care Monomer Recovery Supervisor Name Role Phone Courtney CARRION, Kelsy Terry Primary Care Provider Un available Barbie Jamari Unavailable [phone] Allergies Allergen (clinical drug ingredient) Drug/Non Drug Allergy documented on EMR Reaction Allergy Type Onset Date Status amoxicillin Amoxicillin Unknown Drug Allergy Act tina Penicillin rash Drug Allergy Active Pollen Pollen sneezing Allergy Active REASON FOR VISIT At Risk Footcare, Ingrown nail(s), Toe Irritation Medications Medication SIG (Take, Route, Frequency, Duration) Notes Start Date End Date Status metFORMIN HCl 500 MG Orally twice a day Not-Taking Tamsulosin HCl Not-T aking Allopurinol Prn Not-Taki ng Fluticasone Propionate Not-Taking Atorvastatin Calcium 20 MG 1 tablet Orally Once a day for 30 day(s) Active Finasteride 1 tablet Once a day Active Loratadine 10 MG as directed Orally PRN Active lipitor 10mg Not-Tayo ing Flonase Active Flomax Active Social History Tobacco Use: Social History Observation [...] Signs Height 5 ft 8 in in 04/08/2023 Weight 175 lbs 04/08/2023 BMI 26.61 kg/m2 04/08/2023 Blood pressure systolic 124 mm Hg 04/08/19 24 Blood pressure diastolic 75 mm Hg 024 Procedures Procedure Date Ordered Date Performed Result Body Sit e 53008-YETLSGC NAIL, 6 OR MORE 04/08/2023 N/A 55390-Hifitlzh Plate 04/08/2023 N/A 41295-Nohabfpw Plate Each Additional 04/08/2023 N/A Encounters Encounter Location Date Provider Diagnosis [facility] [place] [address] [place] [address] 04/08/2023 Jamari Makier Type 2 diabetes mellitus with diabetic polyneuropathy E11.42 ; Tinea unguium B35.1 ; Ingrown nail L60.0 ; Other hammer toe(s) (acquired), right foot M20.41 and Other hammer toe(s) (acquired), left foot M20.42 Assessments Encounter Date Diagnosis (ICD Code) Assessment Notes Treatment Notes Treatment Clinical Notes Section Notes 04/08/2023 Type 2 diabetes mellitus with diabetic polyneuropathy (ICD-10 - E11.42) 04/08/2023 Tinea unguium (ICD-10 - B35.1) 04/08/2023 Ingrown nail (ICD-10 - L60.0) 04/08/2023 Other hammer toe(s) (acquired), right foot (ICD-10 - M20.41) Response to treatment,Impro vement 04/08/2023 Other hammer toe(s) (acquired), left foot (ICD-10 - M20.42) Response to treatment,Impro vement Plan Of Treatment Pending Test Test Name Order Date 83447-LGNTSGH NAIL, 6 OR MORE 04/08/2023 89831-Szgkhtqw Plate 04/08/2023 56019-Qpdwweim Plate Each Additional 02/2023 Next Appt Details Follow Up: prn, Reason: Provider Name:Jamari Valentin , 04/10/2024 01:45:00 PM, [address] [place] [address], [id number], Procedure Notes * Category Sub-Category Detail Notes Nail Avulsion Procedure A fine sterile e levator was placed between the eponychium, nail fold, and nail plate to separate the the structures. A sterile nail splitter, and/or sterile #316 blade, was then used to longitudinally section the nail along its entire length through the eponychium to the area under the nail fold. The offending portion of each nail was from the nail bed with a rolling action and then removed with a hemostat. No underlying bone was identified. A bacitracin sterile dressing was applied. Local wound aftercare instructions were discussed and dispensed. The patient was informed of both conservative and future surgical procedures to prevent recurrence (16711/32), DIABETES: Pt was advised as to the risk of delayed or nonhealing due to diabetes. Pt is to call the office with any questions, concerns, or complications Anesthesia was deferred - NEURO LORI: patient has medically documented neuropathic condition affecting sensation Location Medial nail border, TA, Lateral nail border, T5 Debride Nail 6-10 Nail debridement Nail debridem ent performed extensively to reduce/remove overall nail length, girth, thickness, subungual debris, and necrotic tissue, by manual and electrical means through the use of a nail nipper and/or dremel, to more viable healthy nail plate or bed tissue 1-5. Silver nitrate used for any petechial bleeding as necessary. Patient chooses, no pharmaceutical tx (58719) Keratoma Treatment Parring or Cutting o f Benign Hyperkeratotic Lesion(s) 97653 (2-4 Lesions) - The Benign hyperkeratotic lesions, as described above were pared, and/or cut utilizing a sterile #15 blade, tissue nippers, and/or dremel Progress Notes * Anderson SAMPSON UDOB:1939 (83 yo M)Acc No.[id number]:04/08/2023 Progress Note Patient:?Heladio Sampsonel U Provider:?Jamari Valentin DPM :1940???Age:83 Y???Sex:Male Andrea e:04/08/2023 Address:[address] [place] [address], [id number] Pcp:Dawn Morrison Subjective: * Chief Complaints: * ???At Risk FootcareIngrown n ail(s)Toe Irritation * HPI: ???At Risk footcare:?Pt States Last PCP Visit:?Date?02/17/2023 ???Toe pain:?Treatments:?Rx shoes .? * ROS:?General/Constitutional:?Nausea?denies.?Vomiting?denies.?Hunger Thirst?denies.?Loss appetite?denies.?Chills?denies.?Fatigue?denies.?Fever?denies.?Night Sweats?denies.?Unexplained weight loss?denies.?Unexplained weight gain?denies.?HEENTM:?Dentures?admits.?Dizziness?denies.?Glasses/contacts?admits.?Retinopathy?de nies.?Blurred/double vision?denies.?TMJ?denies.?Discharge/drainage?denies.?Implants?denies.?Sore throat?denies.?Dental implants?admits.?Hard of hearing ?denies.?Difficulty chewing/swallowing/speaking?denies.?Nose bleeds?denies.?Sore mouth?denies.?Respiratory:?On Oxygen?denies.?Pneumonia/pleurisy?denies.?Bronchitis?denies.?Emphysema?denies.?C oughing?denies.?Cough blood?denies.?Shortness of breath?denies.?Wheezing?denies.?Cardiovascular:?Pacemaker?denies.?MVP?denies.?WPW?denies.?CHF?denies.?Heart attack?denies.?Septal defect?denies.?Rapid beat?denies.?Chest pain ?denies.?Atrial Fib.?denies.?Murmur/Palpitations?denies.?Gastrointestinal:?Hemorrhoids?denies.?Stomach/Abdominal pain?denies.?Dark blood stool?denies.?Irritable bowel ?denies.?Constipation?denies.?Diarrhea?denies.?Hematology:?Swelling?admits.?Clots?denies.?Varicose Veins?admits.?Bruising?denies.?Bleeding problem?denies.?Genitourinary:?Blood urine?denies.?Frequent/Painfu/urination/bladder control?admits.?Kidney stones?denies.?Infection (UTI)?denies.?Nephropathy?denies.?sex trans dis (STD)?denies.?Prostate?denies.?Musculoskeletal:?Hammertoes?admits.?Bunions?denies.?Back Pain?denies.?Muscle Cramps/ Resting?denies.?Muscle cramps / walking?denies.?Generalized aches and pains?denies.?Weakness?denies.?Integ.:?Morrissey?denies.?Scars?denies.?Corns/calluses?admits.?Ingrown nails?admits.?Painful nails?denies.?Open Sores?denies.?Rashes?denies.?Neurologic:?Difficulty sleeping?admits.?Brain disorder?denies.?Numbness?denies.?Balance trouble?admits.?Confusion?denies.?Fainting/blackouts?denies.?Tingling?denies.?Tr emors?denies.? * Medical History:? * Surgical History:?bladder armenta rgery 11/1941gall stones 10/1981gall bladder, removed * Hospitalization/Major Diagno stic Procedure:?Denies Past Hospitalization * Family History:?Mother: dece ased.?Father: .? * Social History:?Tobacco Use:?Tobacco Use/Smoking?Are you a:?former smoker ?Additional Findings: Tobacco Non-User?Ex-cigarette smoker ?Tobacco use other than smoking?Are you an other tobacco user??No ???Drugs/Alcohol:?Drugs?Have you used drugs other than those for medical reasons in the past 12 months??No ?Alcohol Screen?Did you have a drink containing alcohol in the past year??No ?Points?0 ?Interpretation?Negative ???Miscellaneous:?Caffeine: yes, coffee,tea , 1-2 cups per day. ?Children: yes. ?Exercise: yes, Shopping, driving car, gardening. ?Marital status: . 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 * Medications:?TakingAtorvasta tin Calcium 20 MG Tablet [...] Objective: * Vitals:?Ht: 5 ft 8 in, Wt:17 5, BMI: 26.61, Shoe size:11W, BP:124/75 mm Hg, BS:not taken, Wt-k.38 kg. * ???Past Orders: ???Lab:HEMOGLOBIN A1C (GLYCO HEMOGLOBIN) (Order Date - 02/16/2022) (Collection Date - 10/08/2021) ? Value Reference Range ?HEMOGLOBIN A1C (HH) unknown * Examination: ???Neurological: ?SENSORY:? Neurological exam demonstrates, reduced light touch sensation, reduced sharp/dull pin prick discrimination , B/L, 5.07 monofilament test performed at plantar aspects of 5 varied sites per foot shows sensation, reduced , B/L.?Nails: ?NAILS are:?Elongated, overgrown, dystrophic, lytic, greater than 3mm thick, discolored and friable with crumbly malodorous subungual debris, 1-5 Left foot, T5, T6, T7, T9.?Ingrown Nail: ?INSPECTION:? Reveals nail incurvation, dull pain on palpation due to neuropathy, groove hypertrophy, Medial nail border, TA, Lateral nail border, T5.?Dermatologic: ?SKIN FINDINGS:?Skin exam reveals Keratotic lesion(s) located at, Heel(s), B/L.?Orthopedic: ?DIGITAL DEFORMITIES:?Digital contracture, PIPJ, 2-5 B/L, incompl-reducible to push-up test, no over, nor underlapping?.?FOOTWEAR:?good condition, exhibit proper fit and accommodation for pedal deformities. OT were inspected and noted to be worn, but in good condition giving proper support at the present time.? Assessment: * Assessment: 1.?Type 2 diabetes mellitus with diabetic polyneuropathy - E11.42 (Primary)?2.?Tinea unguium - B35.1?3.?Ingrown nail - L60.0, Medial nail border, TA, Lateral nail border, T5 4.?Other hammer toe(s) (acquired), right foot - M20.41, Chronic problem, Stable (1=3,2=4), Response to treatment,Improvement?5.?Other hammer toe(s) (acquired), left foot - M20.42, Chronic problem, Stable (1=3,2=4), Response to treatment,Improvement? Plan: * Treatment: 2.?Ingrown nail?Procedure: 82343-Ziucqrfd Plate ?Procedure: 29212-Lfsppnip Plate Each Additional * Procedures:?Debride Nail 6-10:?Nail debridement?Nail debridement performed extensively to reduce/remove overall nail length, girth, thickness, subungual debris, and necrotic tissue, by manual and electrical means through the use of a nail nipper and/or dremel, to more viable healthy nail plate or bed tissue 1-5. Silver nitrate used for any petechial bleeding as necessary. Patient chooses, no pharmaceutical tx (05012).?Keratoma Treatment:?Parring or Cutting of Benign Hyperkeratotic Lesion(s)?84718 (2-4 Lesions) - The Benign hyperkeratotic lesions, as described above were pared, and/or cut utilizing a sterile #15 blade, tissue nippers, and/or dremel.?Nail Avulsion:?Location?Medial nail border, TA, Lateral nail border, T5.?Anesthesia?was deferred - NEUROPATHY: patient has medically documented neuropathic condition affecting sensation.?Procedure?A fine sterile elevator was placed between the eponychium, nail fold, and nail plate to separate the the structures. A sterile nail splitter, and/or sterile #316 blade, was then used to longitudinally section the nail along its entire length through the eponychium to the area under the nail fold. The offending portion of each nail was from the nail bed with a rolling action and then removed with a hemostat. No underlying bone was identified. A bacitracin sterile dressing was applied. Local wound aftercare instructions were discussed and dispensed. The patient was informed of both conservative and future surgical procedures to prevent recurrence (52891/32), DIABETES: Pt was advised as to the risk of delayed or nonhealing due to diabetes. Pt is to call the office with any questions, concerns, or complications.? * Procedure Codes:?70239 DEBRI DE NAIL, 6 OR MORE, Modifiers: XS 11029 Avulsion Plate, Modifiers: XS , [id number] Avulsion Plate Each Additional, Modifiers: XS , T5 * Preventive Medicine:? ??Counseling:?Discussion:?-13: Office or other outpatient visit for the evaluation and management of an established patient, which required a medically appropriate history and/or examination and LOW level of DECISION MAKING for: 1 STABLE ACUTE UNCOMPLICATED PROBLEM, 2 OR MORE MINOR PROBLEMS, OR 1 STABLE CHRONIC PROBLEM, THAT POSE(S) A LOW RISK FOR MORBIDITY/MORTALITY. The visit on the day of the [...] have encouraged the patient to call the office.?Shoe Gear Counseling:?A thorough inspection of the patients Rxed shoegear and inserts was performed and findings communicated. We reviewed the many important medical advantages for adhering to regularly wearing these shoe and insert accomidative devices daily as well as reviewed the fact that a failure in accepting these recommedations may be deleterious, unable to prevent, and disadvantagely result in, many pedal complications such as skin irritation, skin ulceration, infection, and even loss of toe/foot/leg/or even their life. Time was also spent reviewing the proper footcare techniques including daily skin moisturization, daily foot inspection for any interruption in skin integrity, open lesions, or sign of infection such as redness/malodor/drainage/swelling as well as daily shoe inspection for the presence of internal foreign bodies and shoe as well as insert wear. Patient questions re: shoes, inserts, and self foot inspections were answered to their satisfaction as the patient verbally confirmed a full understanding of the above information.? * Follow Up:?prn * Images: * Sign off status: Completed Addendum: * ? true * Provider:?Jamari Valentin DPM Date:?2023 Generated for Gregorio sands/Boby/Roxitting on:?03/23/2024 08:06 AM EST History and Physical Notes * HPI (History of Present Illness) Category Sub-Category Detail Notes Category Not es Toe pain Treatments: Rx shoes At Risk footcare Pt States Last PCP Visit: Date: 4 Examination Category Sub-Category Detail Notes Category Not es Ingrown Nail INSPECTION: Reveals nail inc urvation, dull pain on palpation due to neuropathy, groove hypertrophy, Medial nail border, TA, Lateral nail border, T5 Neurological SENSORY: Neurological exa m demonstrates, reduced light touch sensation, reduced sharp/dull pin prick discrimination , B/L, 5.07 monofilament test performed at plantar aspects of 5 varied sites per foot shows sensation, reduced , B/L Dermatologic SKIN FINDINGS: Skin exam reveal s Keratotic lesion(s) located at, Heel(s), B/L Orthopedic FOOTWEAR: good condition, exhibit proper fit and accommodation for pedal deformities. OT were inspected and noted to be worn, but in good condition giving proper support at the present time DIGITAL DEFORMITIES: Digital contracture , PIPJ, 2-5 B/L, incompl-reducible to push-up test, no over, nor underlapping Nails NAILS are: Elongated, overg rown, dystrophic, lytic, greater than 3mm thick, discolored and friable with crumbly malodorous subungual debris, 1-5 Left foot, T5, T6, T7, T9
--- NOTE | 2024-03-23 08:09 | CA_ITS ---
Acquisition Time: 2024-03-23 08:14:08 Total Exercise Time: 00:08:23 Test Indications: Abnormal Treadmill Test Medications: SEE EMAR/DISCHARGE SUMMARY Protocol: BERTHA Max HR: 105 BPM 77% of Pred: 136 BPM Max BP: 136/78 mmHG Max Work Load: 6.3 METS Exercise Stress Test with exercise 5 mins of RBuce Protocol, held at stage 1 with increased incleined to 14%, however, HR suboptimal and pt couldnot walk faster, achieving only 70% MPHR. With baseline nonspecific ST- T waves inferiorly and in V3-V6. Test switched Pharmacologic Nuclear Stress Test. Pharmacologic Stress Test with Lexiscan, while pt continued to walk on treadmill at 1.5mph, with reports of feeling warm and headache, without any arrythmias, with normotensive response to injection. Nondiagnostic EKG for ischemia. In recovery, pt treated with IVP Aminophylline 75 mg to reverse Lexiscan after which pt feeling back to baseline. Nuclear images pending. Test reviewed with Dr. Roberts. Referred By: Tariq Roberts Electronically Signed By: Fox Valerio
== END ==
LOC: HO.CARD 08:04
PROVIDERS: PCP Internal Medicine; Visit Provider Internal Medicine Cardiovascular Disease
DX: I48.0 Paroxysmal atrial fibrillation (principal)
CPT/HCPCS: 93017; J0280; J2785

== ENCOUNTER → 2024-03-23 08:09 | Outpatient (BNV) | payer OTHER, SELFPAY | PROVIDERS: PCP Internal Medicine | DX: R94.31 Abnormal electrocardiogram [ECG] [EKG] (principal) | CPT/HCPCS: 78452; 93016; 93018 ==

== ENCOUNTER 2024-04-11 06:12 | Outpatient (REF) | payer OTHER, SELFPAY ==
--- OUTSIDE RECORDS SUMMARY | 2024-04-11 06:14 | XMS_ITS | Patient Health Record ---
Author Organization [facility] [place] Address [address] [place] [address] Care Team Providers Care Chain Person Name Role Phone Courtney CARRION, Kelsy Terry Primary Care Provider Un available Barbie Jamari Unavailable [phone] Allergies Allergen (clinical drug ingredient) Drug/Non Drug Allergy documented on EMR Reaction Allergy Type Onset Date Status amoxicillin Amoxicillin Unknown Drug Allergy Act tina Penicillin rash Drug Allergy Active Pollen Pollen sneezing Allergy Active Results Component Value Reference Range Notes HEMOGLOBIN A1C (GLYCOHEMOGLO BIN) Reviewed date:04/10/2024 01:55:03 PM Interpretation: Performing Lab: Notes/Report: HEMOGLOBIN A1C % (HH) 7.8 Reason For Referral No Information Medications Medication SIG (Take, Route, Frequency, Duration) Notes Start Date End Date Status Eliquis Active Allopurinol Prn Not-Taki ng Tamsulosin HCl Not-T aking metFORMIN HCl 500 MG Orally twice a day Not-Taking Flomax Not-Taking Flonase Active Atorvastatin Calcium 20 MG 1 tablet Orally Once a day for 30 day(s) Active Multaq Active Fluticasone Propionate Not-Taking lipitor 10mg Not-Tayo ing Extra Depth Orthopedic Shoes (1 Pair) with Customized Heat Molded Multidensity Innersoles (3 Pair) as directed Dx: NIDDM/Polyneuropathy (E11.42), Hammertoe Foot Deformity (M20.41,M20.42), Preulcerative Skin Lesion(s) (L85.1 10/11/2023 Active Loratadine 10 MG as directed Orally PRN Active Finasteride 1 tablet Once a day Not-Taking Immunizations Vaccine Route Administration Date Status Comme nts Influenza Unknown 02/08/2020 Administered Influenza Unknown 10/11/2023 Refused COVID-19 [employer]ron [employer] Tyron/Kaila Unknown 06/30/2021 R efused Social History Tobacco Use: Social History Observation Description Date Details (start date - stop date) Never Smoker NA - NA Alcohol Screen Question Answer Notes Did you have a drink containing alcohol in the p ast year? No Points 0 Interpretation Negative Tobacco use other than smoking: Question Answer Notes Are you an other tobacco user? No Tobacco Control (Standard) Question Answer Notes Tobacco use: Nonsmoker Additional Findings: Tobacco non-user Current no nsmoker Problems Problem Type SNOMED Code ICD Code Onset Dates Problem Status W/U Status Risk Notes Problem Acquired hammer toe of right foot (6159074986558204 ) Other hammer toe(s) (acquired), right foot (M20.41) Active confirmed Response to treatment, Improvemen t Problem Acquired hammer toe of left foot (0735764426713893 ) Other hammer toe(s) (acquired), left foot (M20.42) Active confirmed Response to treatment, Improvemen t Problem Polyneuropathy due to type 2 diabetes mellitus (924393701) Type 2 diabetes mellitus with diabetic polyneuropathy (E11.42) Active confirmed Vital Signs Heart Rate 63 /min 04/10/2024 Blood pressure diastolic 72 mm Hg 04/10/2024 Height 5 ft 8 in in 04/10/2024 Blood pressure systolic 130 mm Hg 04/10/2024 Weight 170 lbs 04/10/2024 BMI 25.85 kg/m2 04/10/2024 Procedures Procedure Date Ordered Date Performed Result Body Sit e 14976-QVYSHYC NAIL, 6 OR MORE 10/11/2023 N/A 84028-Kjsyikya Plate 10/11/2023 N/A 19367-YCSY SKIN LESIONS, 2 TO 4 10/11/2023 N/A 54803-DTCVIZG NAIL, 6 OR MORE 04/10/2024 N/A 97331-Lonnbaoy Plate 04/10/2024 N/A 40110-HXVI SKIN LESIONS, 2 TO 4 04/10/2024 N/A Encounters Encounter Location Date Provider Diagnosis [facility] [place] [address] [place] [address] 10/11/2023 Jamari Valentin Type 2 diabetes mellitus with diabetic polyneuropathy E11.42 ; Tinea unguium B35.1 ; Other hammer toe(s) (acquired), right foot M20.41 ; Other hammer toe(s) (acquired), left foot M20.42 and Ingrown nail L60.[address] [address] 04/10/2024 Jamari Valentin Type 2 diabetes mellitus with diabetic polyneuropathy E11.42 ; Tinea unguium B35.1 ; Ingrown nail L60.0 ; Other hammer toe(s) (acquired), right foot M20.41 and Other hammer toe(s) (acquired), left foot M20.[address] [address] 04/10/2024 Jamari Valentin Assessments Encounter Date Diagnosis (ICD Code) Assessment Notes Treatment Notes Treatment Clinical Notes Section Notes 10/11/2023 Type 2 diabetes mellitus with diabetic polyneuropathy (ICD-10 - E11.42) 10/11/2023 Tinea unguium (ICD-10 - B35.1) 04/10/2024 Type 2 diabetes mellitus with diabetic polyneuropathy (ICD-10 - E11.42) 04/10/2024 Tinea unguium (ICD-10 - B35.1) 04/10/2024 Ingrown nail (ICD-10 - L60.0) 10/11/2023 Other hammer toe(s) (acquired), right foot (ICD-10 - M20.41) Patient Educated with: DIABETIC FOOT CARE INSTRUCTIONS. pdf (DIABETIC FOOT CARE INSTRUCTIONS. pdf) 10/11/2023 Other hammer toe(s) (acquired), left foot (ICD-10 - M20.42) 04/10/2024 Other hammer toe(s) (acquired), right foot (ICD-10 - M20.41) Response to treatment,Impro vement 04/10/2024 Other hammer toe(s) (acquired), left foot (ICD-10 - M20.42) Response to treatment,Impro vement 10/11/2023 Ingrown nail (ICD-10 - L60.0) Plan Of Treatment Pending Test Test Name Order Date 81182-GWBJOTZ NAIL, 6 OR MORE 12/13/2017 62117-IQNNZOH NAIL, 6 OR MORE 03/14/2018 90817-VWHVGMN NAIL, 6 OR MORE 06/13/2018 11348-XVQFLYI NAIL, 6 OR MORE 06/30/2021 87851-LTNNLIR NAIL, 6 OR MORE 02/16/2022 98440-TPMDFCF NAIL, 6 OR MORE 07/20/2022 74830-ZEIIRHY NAIL, 6 OR MORE 04/08/2023 25463-ERLBCTH NAIL, 6 OR MORE 10/11/2023 47383-PRBUKXI NAIL, 6 OR MORE 04/10/2024 97187-Ouzlenzt Plate 04/10/2024 43306-Uckvmxvm Plate 10/11/2023 08552-Pcldybqy Plate 04/08/2023 42112-Lizmoruf Plate 07/20/2022 83658-Roqsqvis Plate 02/16/2022 90470-Sgbswcyw Plate 06/30/2021 99408-Ubxdjirq Plate Each Additional 24258-Gbnqrasz Plate Each Additional 11/2022 16172-Hmrdzovl Plate Each Additional 31396-Hywqbqle Plate Each Additional 02/2023 65353-JAGR SKIN LESIONS, 2 TO 4 10/11/19 24 62183-NRSG SKIN LESIONS, 2 TO 4 04/11/19 25 52157-IVOZ SKIN LESIONS, 2 TO 4 07/21/19 23 18753-CVFY SKIN LESIONS, 2 TO 4 02/16/19 23 49925-EDIJ SKIN LESIONS, 2 TO 4 07/01/19 22 72110-WURL SKIN LESIONS, 2 TO 4 06/14/19 19 Next Appt Details Provider Name:Jamari Valentin , 10/19/2024 01:30:00 PM, [address] [place], [address], Insurance Providers Payer Name Payer Address Payer Phone Subscriber Number Group Number Insured Name Patient Relationship to Insured Coverage Start Date Coverage End Date [facility]-[address] [address] [address] [place] [address] [phone] [id number] [facility] Self - patient is the insured Medicare National Govt [facility] [address] [place] [phone] [id number] Anderson Sampson Self - patient is the insured 6 Medical (General) History Medical History History ICD Code Arthritis Back,Hip,and Knee pain Broken bones, thumb cholesterol cataracts, small type II diabetes Gall bladder problems Gout High blood pressure Reflux Sciatica chronic sinusitis Measles Mumps Transfusions Herniated disc nerve disorder Poor circulation Chicken pox A fib Surgical History Surgery Date(Month/Year) bladder surgery 11/1941 gall stones 10/1981 gall bladder, removed [place] Reason Date(Month/[place] [facility] [place]
--- OUTSIDE RECORDS SUMMARY | 2024-04-11 06:14 | XMS_ITS ---
Author Organization [facility] [place] Address [address] [place] [address] Care Team Providers Care Building Construction Contractor Name Role Phone Courtney CARRION, Kelsy Terry Primary Care Provider Un available Barbie, Jamari Unavailable [phone] Allergies Allergen (clinical drug ingredient) Drug/Non Drug [...] Ordered Date Performed Result Body Sit e 02786-ZXRPISD NAIL, 6 OR MORE 10/11/2023 N/A 62997-Wdjuxihw Plate 10/11/2023 N/A 99983-OHIO SKIN LESIONS, 2 TO 4 10/11/2023 N/A Encounters Encounter Location Date Provider Diagnosis [facility] [place] [address] [place] [address] 10/11/2023 Jamari Valentin Type 2 diabetes mellitus [...] INSTRUCTIONS.pdf) Pending Test Test Name Order Date 23496-ENAVDOR NAIL, 6 OR MORE 10/11/2023 01637-Exbqgxrn Plate 10/11/2023 07898-KJHJ SKIN LESIONS, 2 TO 4 10/11/19 24 Next Appt Details Follow Up: prn, Reason: Provider Name:Jamari Valentin , 10/19/2024 01:30:00 PM, [address] [place] [address], [phone], Procedure Notes * Category Sub-Category Detail Notes [...] Motrin was recommended for pain or discomfort (02373) , DIABETES: Pt was advised as to [...] use of a nail nipper and/or dremel-type grinder setup operator, to a more viable healthy nail plate or bed tissue 6-10. Silver nitrate used for any petechial bleeding as necessary. Definitive antifungal treatment options have been reviewed and discussed with the patient. The patient chooses, no pharmaceutical tx - 10902 Keratoma Treatment Parring or Cutting o f Benign Hyperkeratotic Lesion(s) 53358 ( 2-4 Lesions ) - The Benign hyperkeratotic lesions, as described above were pared, and/or cut utilizing a sterile 15 blade, tissue nippers, and/or dremel - 97035 Progress Notes * Anderson SAMPSON UDOB:1939 (83 yo M)Acc No.[id number]:10/11/2023 Progress Note Patient:?Anderson Sampson U Provider:?Jamari Valentin DPM :1940???Age:83 Y???Sex:Male Andrea e:10/11/2023 Address:[address] [place] [address] [facility] Pcp:Dawn Morrison Subjective: * Chief Complaints: * [...] 10/1981gall bladder, removed * Hospitalization/Major Diagno stic Procedure[place] [place] * Family History:?Mother: dece ased.?Father: .? * Social History:?Tobacco Use:?Tobacco Use/Smoking?Are you a:?former smoker ?Additional Findings: Tobacco Non-User?Ex-cigarette smoker ?Tobacco use other than smoking?Are you an other tobacco user??No ???Miscellaneous:?Caffeine: yes, coffee,tea , 1-2 cups per day. ?Children: yes. ?Exercise: yes, Shopping, driving car, gardening. ?Marital status: . 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 * Medications:?TakingAtorvasta tin Calcium 20 MG Tablet [...] Ankle(s).?CLAUDICATION:?denies, B/L.?REST PAIN:?denies, B/L.?Ophthalmology Referral: ?DIABETES EYE EXAM?Diabetic Retinopathy Screening:?Yes ?Findings of Diabetic Eye Exam:?no retinopathy?General Examination: ?GENERAL APPEARANCE:?Reveals a pleasant, alert, well nourished, well developed, well hydrated individual, who demonstrates proper attention to hygiene/body habitus, and is in no acute distress , Pt serves as own historian for office visit today.?ORIENTED:?person, place, and time.?FOOT EXAM:?Lower Extremity Neurological Exam performed:?Yes ?Footwear Evaluation?Footwear Evaluation performed:?Yes??? Assessment: * Assessment: 1.?Type 2 diabetes mellitus [...] INSTRUCTIONS.pdf (DIABETIC FOOT CARE INSTRUCTIONS.pdf)?? 3.?Ingrown nail?Procedure: 15295-Rhpimetu Plate * Procedures:?Debride Nail 6-10:?Nail debridement?Performance of this nail treatment by a nonprofessional would put this patients foot and overall health at risk. Therefore, nail debridement was performed extensively to reduce/remove overall nail length, girth, thickness, subungual debris, and necrotic tissue, by manual and/or electrical means through the use of a nail nipper and/or dremel-type grinder setup operator, to a more viable healthy nail plate or bed tissue 6-10. Silver nitrate used for any petechial bleeding as necessary. Definitive antifungal treatment options have been reviewed and discussed with the patient. The patient chooses, no pharmaceutical tx - 68714.?Keratoma Treatment:?Parring or Cutting of Benign Hyperkeratotic Lesion(s)?39237 ( 2-4 Lesions ) - The Benign hyperkeratotic lesions, as described above were pared, and/or cut utilizing a sterile 15 blade, tissue nippers, and/or dremel - 57198.?Nail Avulsion:?Location?Lateral nail border,?T5.?Anesthesia?was deferred - NEUROPATHY: patient [...] Motrin was recommended for pain or discomfort (10199) , DIABETES: Pt was advised as to the risk of delayed or nonhealing due to diabetes. Pt is to call the office with any questions, concerns, or complications.? * Immunizations:? Influenza (Not administered - Refused: Patient decision) * Procedure Codes:?13923 DEBRI DE NAIL, 6 OR MORE, Modifiers: XS 16316 Avulsion Plate, Modifiers: XS , [id number] TRIM SKIN LESIONS, 2 TO 4, Modifiers: [...] Provider:?Jamari Valentin DPM Date:?2023 Generated for Gregorio sands/Boby/eTyanni on:?04/11/2024 06:14 AM EST History and Physical Notes * [...]
--- OUTSIDE RECORDS SUMMARY | 2024-04-11 06:14 | XMS_ITS ---
Author Organization [facility] [place] Address [address] [place] [address] Care Team Providers Care Registered Nurse Nursery Name Role Phone Courtney CARRION, Kelsy Terry Primary Care Provider Un available Barbie, Jamari Unavailable [phone] Allergies Allergen (clinical drug ingredient) Drug/Non Drug Allergy documented on EMR Reaction Allergy Type Onset Date Status amoxicillin Amoxicillin Unknown Drug Allergy Act tina Penicillin rash Drug Allergy Active Pollen Pollen sneezing Allergy Active REASON FOR VISIT At Risk Footcare, Ingrown Nail, Toe Irritation Medications Medication SIG (Take, Route, Frequency, Duration) Notes Start Date End Date Status Allopurinol Prn Not-Taki ng Tamsulosin HCl Not-T aking metFORMIN HCl 500 MG Orally twice a day Not-Taking Fluticasone Propionate Not-Taking lipitor 10mg Not-Tayo ing Flomax Not-Taking Flonase Active Extra Depth Orthopedic Shoes (1 Pair) with Customized Heat Molded Multidensity Innersoles (3 Pair) as directed Dx: NIDDM/Polyneuropathy (E11.42), Hammertoe Foot Deformity (M20.41,M20.42), Preulcerative Skin Lesion(s) (L85.1 10/11/2023 Active Loratadine 10 MG as directed Orally PRN Active Finasteride 1 tablet Once a day Not-Taking Eliquis Active Atorvastatin Calcium 20 MG 1 tablet Orally Once a day for 30 day(s) Active Multaq Active Social History Tobacco Use: Social History [...] Additional Findings: Tobacco non-user Current no nsmoker Vital Signs Height 5 ft 8 in in 04/10/2024 Weight 170 lbs 04/10/2024 BMI 25.85 kg/m2 04/10/2024 Blood pressure systolic 130 mm Hg 04/11/19 25 Blood pressure diastolic 72 mm Hg 025 Heart Rate 63 /min 04/10/2024 Procedures Procedure Date Ordered Date Performed Result Body Sit e 14243-RWUGVIB NAIL, 6 OR MORE 04/10/2024 N/A 43363-Mtnpozxt Plate 04/10/2024 N/A 68756-BOJF SKIN LESIONS, 2 TO 4 04/10/2024 N/A Encounters Encounter Location Date Provider Diagnosis [facility] [place] [address] [place] [address] 04/10/2024 Jamari Valentin Type 2 diabetes mellitus with diabetic polyneuropathy E11.42 ; Tinea unguium B35.1 ; Ingrown nail L60.0 ; Other hammer toe(s) (acquired), right foot M20.41 and Other hammer toe(s) (acquired), left foot M20.42 Assessments Encounter Date Diagnosis (ICD Code) Assessment Notes Treatment Notes Treatment Clinical Notes Section Notes 04/10/2024 Type 2 diabetes mellitus with diabetic polyneuropathy (ICD-10 - E11.42) 04/10/2024 Tinea unguium (ICD-10 - B35.1) 04/10/2024 Ingrown nail (ICD-10 - L60.0) 04/10/2024 Other hammer toe(s) (acquired), right foot (ICD-10 - M20.41) Response to treatment,Impro vement 04/10/2024 Other hammer toe(s) (acquired), left foot (ICD-10 - M20.42) Response to treatment,Impro vement Plan Of Treatment Pending Test Test Name Order Date 87836-UTNGNYF NAIL, 6 OR MORE 04/10/2024 42711-Mxotgxgp Plate 04/10/2024 60056-ZCJK SKIN LESIONS, 2 TO 4 04/11/19 25 Next Appt Details Follow Up: prn, Reason: Provider Name:Jamari Valentin , 10/19/2024 01:30:00 PM, [address] [facility], [place], [address], Procedure Notes * Category Sub-Category Detail Notes [...] Motrin was recommended for pain or discomfort (82314), DIABETES: Pt was advised as to the risk of delayed or nonhealing due to diabetes. Pt is to call the office with any questions, concerns, or complications Anesthesia was deferred - NEURO LORI: patient has medically documented neuropathic condition affecting sensation Location Lateral nail border, T5 Debride Nail 6-10 Nail debridement Due to the cl inical pathology outlined in the exam findings, performance of this nail treatment is medically necessary as its management by an unskilled/untrained nonprofessional would put this patients foot and overall health at risk. Therefore, debridement to affected nail(s), as described in exam ( TA, T1, T2, T3, T4, T5, T6, T7, T9 ), was performed exclusively by the physician of record to reduce/remove overall nail length, girth, thickness, subungual debris, and necrotic tissue, by manual and/or electrical means through the use of a nail nipper and/or dremel-type wood grinder operator, to a more viable healthy nail plate or bed tissue 6-10 nails in total. Silver nitrate was used for any petechial bleeding as necessary. Definitive antifungal treatment options, both pharmaceutical and surgical, have been reviewed and discussed with the patient. The patient solely prefers the use of intermittent/as needed professional debridement services for their nail condition and understands the need for additional periodic treatments to maintain effectiveness in symptomatic relief - 37991 Keratoma Treatment Parring or Cutting o f Benign Hyperkeratotic Lesion(s) (-56) 2-4 Lesions - Due to the at risk nature of the patients medical condition as documented in the exam findings, performance of this keratoderma treatment is medically necessary as its management by an unskilled/untrained nonprofessional would put this patients foot and overall health at risk. Therefore, the benign hyperkeratotic lesions, ( 2 ) in total, locations as stated and described in the exam ( Plantar, Heel(s), B/L ), were pared, and/or cut utilizing a sterile 15 blade, tissue nippers, and/or power dremel instrumentation by the physician of record - 18436 Progress Notes * ADRIÁNHeladioel UDOB:1939 (84 yo M)Acc No.[id number]:04/10/2024 Progress Note Patient:?ADRIÁNAnderson U Provider:?Jamari Valentin DPM :1940???Age:84 Y???Sex:Male Andrea e:04/10/2024 Address:[address] [place] [address], [place] Pcp:Dawn Morrison Subjective: * Chief Complaints: * ???At Risk FootcareIngrown N ailToe Irritation * HPI: ???At Risk footcare:?Pt States Last PCP Visit:?Date?01/26/2024 ???Toe pain:?Treatments:?Rx shoes .? * ROS:?General/Constitutional:?Nausea?denies.?Vomiting?denies.?Hunger Thirst?denies.?Loss appetite?denies.?Chills?denies.?Fatigue?denies.?Fever?denies.?Night Sweats?denies.?Unexplained weight loss?denies.?Unexplained weight gain?denies.?HEENTM:?Dentures?admits.?Dizziness?denies.?Glasses/contacts?admits.?Retinopathy?den ies.?Blurred/double vision?denies.?TMJ?denies.?Discharge/drainage?denies.?Implants?denies.?Sore throat?denies.?Dental implants?admits.?Hard of hearing ?denies.?Difficulty chewing/swallowing/speaking?denies.?Nose bleeds?denies.?Sore mouth?denies.?Respiratory:?On O xygen?denies.?Pneumonia/pleurisy?denies.?Bronchitis?denies.?Emphysema?denies.?Co ughing?denies.?Cough blood?denies.?Shortness of breath?denies.?Wheezing?denies.?Cardiovascular:?Pacemaker?denies.?MVP?denies.?WPW?denies.?CHF?denies.?Heart attack?denies.?Septal defect?denies.?Rapid beat?denies.?Chest pain ?denies.?Atrial Fib.?denies.?Murmur/Palpitations?denies.?Gastrointestinal:?Hemorrhoids?denies.?Stomach/Abdominal pain?denies.?Dark blood stool?denies.?Irritable bowel ?denies.?Constipation?denies.?Diarrhea?denies.?Hematology:?Swelling?admits.?Clots?denies.?Varicose Veins?admits.?Bruising?denies.?Bleeding problem?denies.?Genitourinary:?Blood urine?denies.?Frequent/Painfu/urination/bladder control?admits.?Kidney stones?denies.?Infection (UTI)?denies.?Nephropathy?denies.?sex trans dis (STD)?denies.?Prostate?denies.?Musculoskeletal:?Hammertoes?admits.?Bunions?denies.?Back Pain?denies.?Muscle Cramps/ Resting?denies.?Muscle cramps / walking?denies.?Generalized aches and pains?denies.?Weakness?denies.?Integ.:?Morrissey?denies.?Scars?denies.?Corns/calluses?admits.?Ingrown nails?admits.?Painful nails?denies.?Open Sores?denies.?Rashes?denies.?Neurologic:?Difficulty sleeping?admits.?Brain disorder?denies.?Numbness?admits.?Balance t rouble?admits.?Confusion?denies.?Fainting/blackouts?denies.?Tingling?denies.?Hieu mors?denies.? * Medical History:? * Surgical History:?bladder aremnta rgery 11/1941gall stones 10/1981gall bladder, removed * [place]ization/Major Diagno stic [place] [place] * Family History:?Mother: dece ased.?Father: .? * Social History:?Tobacco Use:?Tobacco use other than smoking?Are you an other tobacco user??No ?Tobacco Control (Standard)?Tobacco use:?Nonsmoker ?Additional Findings: Tobacco non-user?Current nonsmoker ???Drugs/Alcohol:?Drugs?Have you used drugs other than those for medical reasons in the past 12 months??No ?Alcohol Screen?Did you have a drink containing alcohol in the past year??No ?Points?0 ?Interpretation?Negative ???Miscellaneous:?Caffeine: yes, coffee,tea , 1-2 cups per day. ?Children: yes. ?Exercise: yes, Shopping, driving car, gardening. ?Marital status: . 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 * Medications:?TakingEliquis M ultaq Atorvastatin Calcium 20 MG Tablet 1 tablet Orally Once a day Flonase Loratadine 10 MG Tablet as directed Orally , Notes to Pharmacist: PRNExtra Depth Orthopedic Shoes (1 Pair) with Customized Heat Molded Multidensity Innersoles (3 Pair) as directed Dx: NIDDM/Polyneuropathy (E11.42), Hammertoe Foot Deformity (M20.41,M20.42), Preulcerative Skin Lesion(s) (L85.1 Taking Eliquis Taking Multaq Taking Atorvastatin Calcium 20 MG Tablet 1 tablet Orally Once a day Taking Flonase Taking Loratadine 10 MG Tablet as directed Orally , Notes to Pharmacist: PRNTaking Extra Depth Orthopedic Shoes (1 Pair) with Customized Heat Molded Multidensity Innersoles (3 Pair) as directed Dx: NIDDM/Polyneuropathy (E11.42), Hammertoe Foot Deformity (M20.41,M20.42), Preulcerative Skin Lesion(s) (L85.1 Not-Taking/PRNFlomax Finasteride 1 tablet Once a day lipitor 10mg metFORMIN HCl 500 MG Tablet Orally twice a day Tamsulosin HCl Allopurinol Prn Fluticasone Propionate Medication List reviewed and reconciled with the patientNot-Taking/PRN Flomax Not-Taking/PRN Finasteride 1 tablet Once a day Not-Taking/PRN lipitor 10mg Not-Taking/PRN metFORMIN HCl 500 MG Tablet Orally twice a day Not-Taking/PRN Tamsulosin HCl Not-Taking/PRN Allopurinol Prn Not-Taking/PRN Fluticasone Propionate Medication List reviewed and reconciled with the patient * Allergies:?AmoxicillinPenici llin: rashPollen: sneezingyes[Allergies Verified] Objective: * Vitals:?Ht: 5 ft 8 in, Wt: 1 70, BMI: 25.85, Shoe size: 11W, BP: 130/72 mm Hg, HR: 63 /min, Wt-k.11 kg. * ???Past Orders: ???Lab:HEMOGLOBIN A1C (GLYCO HEMOGLOBIN) (Order Date - 05/21/2023) (Collection Date & Time - 05/22/2023 01:54 PM) ? Value Reference Range ?HEMOGLOBIN A1C % (HH) 7.8 * Examination: ???Ophthalmology Referral: ?DIABETES EYE EXAM?Procedure Performed:?Yes ?Date of Exam Performed?08/09/2023 ?Diabetic Retinopathy Screening:?Yes ?Retinal Screening Performed:?Yes ?Findings of Diabetic Eye Exam:?no retinopathy?Neurological: ?SENSORY:? Neurological exam demonstrates, reduced light touch sensation, reduced sharp/dull pin prick discrimination , B/L, 5.07 monofilament test performed at plantar aspects of 5 varied sites per foot shows sensation, reduced , B/L.?Nails: ?NAILS are:?Elongated, overgrown, dystrophic, lytic, greater than 3mm thick, discolored and friable with crumbly malodorous subungual debris, TA, T1, T2, T3, T4, T5, T6, T7, T9, all other nails not described with characteristics as possessing mycosis are elongated, overgrown, and dystrophic.?Dermatologic: ?SKIN FINDINGS:?Skin exam reveals Keratotic lesion(s) located at, Plantar, Heel(s), B/L.?Ingrown Nail: ?INSPECTION:?Reveals nail incurvation, dull pain on palpation due to neuropathy, groove hypertrophy, Lateral nail border, T5.?Orthopedic: ?DIGITAL DEFORMITIES:?Digital contracture, PIPJ, 2-5 B/L, incompl-reducible to push-up test, no over, nor underlapping , no longer, with evidence of shoe producing skin irritation.?FOOTWEAR:?good condition, exhibit proper fit and accommodation for pedal deformities. OT were inspected and noted to be worn, but in good condition giving proper support at the present time.?Vascular: ?DP PULSES (B):?0/4, B/L.?PT PULSES (B):? 0/4, B/L.?CAPILLARY FILL TIME:?delayed, all digits, B/L.?TROPHIC CONDITION-TEXTURE/ELASTICITY/TURGOR/HAIR GROWTH (B):? decreased, B/L.?TEMPERTURE GRADIENT (C):? decreased, cool to cool, proximal to distal, B/L.?PIGMENTATION:?normal, B/L.?EDEMA (C):? 1/4, pitting, without aching pain, B/L, Leg(s), Ankle(s).?CLAUDICATION (C):?denies, B/L.?REST PAIN:?denies, B/L.?General Examination: ?GENERAL APPEARANCE:?Reveals a pleasant, alert, well nourished, well developed, well hydrated individual, who demonstrates proper attention to hygiene/body habitus, and is in no acute distress , Pt serves as own historian for office visit today.?ORIENTED:?person, place, and time.?FOOT EXAM:?Lower Extremity Neurological Exam performed:?Yes ?Visual exam of foot performed:?Yes ?Date?04/10/2024 ?Footwear Evaluation?Footwear Evaluation performed:?Yes??? Assessment: * Assessment: 1.?Type 2 diabetes mellitus with diabetic polyneuropathy - E11.42 (Primary)???2.?Tinea unguium - B35.1???3.?Ingrown nail - L60.0???Specify :Lateral nail border,?T5???4.?Other hammer toe(s) (acquired), right foot - M20.41???Specify :Chronic problem, Stable (1=3,2=4)???Notes :Response to treatment,Improvement???5.?Other hammer toe(s) (acquired), left foot - M20.42???Specify :Chronic problem, Stable (1=3,2=4)???Notes :Response to treatment,Improvement??? Plan: * Treatment: 2.?Ingrown nail?Procedure: 18334-Diequyjb Plate * Procedures:?Debride Nail 6-10:?Nail debridement?Due to the clinical pathology outlined in the exam findings, performance of this nail treatment is medically necessary as its management by an unskilled/untrained nonprofessional would put this patients foot and overall health at risk. Therefore, debridement to affected nail(s), as described in exam (?TA, T1, T2, T3, T4,?T5,?T6,?T7,?T9?), was performed exclusively by the physician of record to reduce/remove overall nail length, girth, thickness, subungual debris, and necrotic tissue, by manual and/or electrical means through the use of a nail nipper and/or dremel-type wood grinder operator, to a more viable healthy nail plate or bed tissue 6-10 nails in total. Silver nitrate was used for any petechial bleeding as necessary. Definitive antifungal treatment options, both pharmaceutical and surgical, have been reviewed and discussed with the patient. The patient solely prefers the use of intermittent/as needed professional debridement services for their nail condition and understands the need for additional periodic treatments to maintain effectiveness in symptomatic relief - 34369.?Keratoma Treatment:?Parring or Cutting of Benign Hyperkeratotic Lesion(s)?(-56) 2-4 Lesions - Due to the at risk nature of the patients medical condition as documented in the exam findings, performance of this keratoderma treatment is medically necessary as its management by an unskilled/untrained nonprofessional would put this patients foot and overall health at risk. Therefore, the benign hyperkeratotic lesions, ( 2 ) in total, locations as stated and described in the exam (?Plantar,?Heel(s),?B/L?), were pared, and/or cut utilizing a sterile 15 blade, tissue nippers, and/or power dremel instrumentation by the physician of record - 15903.?Nail Avulsion:?Location?Lateral nail border,?T5.?Anesthesia?was deferred - NEUROPATHY: patient [...] Motrin was recommended for pain or discomfort (10649), DIABETES: Pt was advised as to the risk of delayed or nonhealing due to diabetes. Pt is to call the office with any questions, concerns, or complications.? * Procedure Codes:?99665 DEBRI DE NAIL, 6 OR MORE, Modifiers: XS 98836 Avulsion Plate, Modifiers: XS , [id number] TRIM SKIN LESIONS, 2 TO 4, Modifiers: XS * Preventive Medicine:? ??Counseling:?Discussion:?-13: Office or other [...] a full understanding of the above information.? ??Screening/Special Tests:?Fall Risk?Screening:?No falls in the past year ?FALLS: Screening for Future Fall Risk?Have you had any falls with injury in the past year??No * Follow Up:?prn * Images: * Sign off status: Completed true * Provider:?Jamari Valentin DPM Date:?2024 Generated for Gregorio sands/Boby/Molly on:?04/11/2024 06:14 AM EST History and Physical Notes * HPI (History of Present Illness) Category Sub-Category Detail Notes Category Not es Toe pain Treatments: Rx shoes At Risk footcare Pt States Last PCP Visit: Date: Examination Category Sub-Category Detail Notes Category Not [...] exam reveal s Keratotic lesion(s) located at, Plantar, Heel(s), B/L Orthopedic FOOTWEAR: good condition, exhibit proper fit and accommodation for pedal deformities. OT were inspected and noted to be worn, but in good condition giving proper support at the present time DIGITAL DEFORMITIES: Digital contracture , PIPJ, 2-5 B/L, incompl-reducible to push-up test, no over, nor underlapping , no longer, with evidence of shoe producing skin irritation General Examination GENERAL APPEARANCE: Reveals a pleasant, alert, well nourished, well developed, well hydrated individual, who demonstrates proper attention to hygiene/body habitus, and is in no acute distress , Pt serves as own historian for office visit today FOOT EXAM: Lower Extremity Neurological Exa m performed:: Yes Visual exam of foot performed:: Yes Date: 04/10/2024 ORIENTED: person, place, and t kamille Footwear Evaluation Footwear Evaluation performe d:: Yes Ophthalmology Referral DIABETES EYE EXAM Procedure Perform ed:: Yes ?Date of Exam Performed: 08/09/2023 Diabetic Retinopathy Screening:: Yes Retinal Screening Performed:: Yes Findings of Diabetic Eye Exam:: no [...] and friable with crumbly malodorous subungual debris, TA, T1, T2, T3, T4, T5, T6, T7, T9, all other nails not described with characteristics as possessing mycosis are elongated, overgrown, and dystrophic
--- OUTSIDE RECORDS SUMMARY | 2024-04-11 06:14 | XMS_ITS ---
Author Organization [facility] Address [address] [place] [address] Care Team Providers Care Health And Safety Manager Name Role Phone Courtney CARRION, Kelsy Terry Primary Care Provider Un available Jamari Valentin Unavailable [phone] REASON FOR VISIT A1C Encounters Encounter Location Date Provider Diagnosis [address] [address] 04/10/2024 Jamari Valentin Plan Of Treatment Next Appt Details Provider Name:Jamari Valentin , 10/19/2024 01:30:00 PM, [address] [place], [address], Progress Notes * Anderson SAMPSON UDOB:1939 (84 yo M)Acc No.[id number]:04/10/2024 Patient:?Anderson SAMPSON :1940???Age:84 Y???Sex:Male Address:[address] [place] [address] [place] [address] * * Date:?
[2024-04-11 11:17] LABS: Cholesterol 150 mg/dL (<200); Creatinine Urine 67.77 mg/dL; HDL Cholesterol 47 mg/dL (>40); LDL Cholesterol Calculated 78 mg/dL (<100); Microalbum/Creatinine Ratio Ur 60.4 ug/mg cr (<30); Triglycerides 125 mg/dL (<150)
[2024-04-11 11:21] LABS: Estimated Average Glucose 177 mg/dL; Hemoglobin A1C 233.4289 umol/L; Hemoglobin A1c % 7.8 % (<6.0); Total Hemoglobin (HGBA1C) 3785.8453 umol/L
== END 2024-04-11 06:13 | disposition home or self-care (01) ==
LOC: HO.HMGCLDS 06:12
PROVIDERS: PCP Internal Medicine; Visit Provider Internal Medicine
DX: E11.29 Type 2 diabetes mellitus with other diabetic kidney complication (principal); R80.9 Proteinuria, unspecified; E78.5 Hyperlipidemia, unspecified
CPT/HCPCS: 36415; 80061; 82043; 82570; 83036

== ENCOUNTER 2024-04-12 12:39 | Outpatient (AMB) | payer OTHER, SELFPAY ==
--- NOTE | 2024-04-12 12:42 | MHC.PC.OV ---
Vital Signs 04/12/24 12:43 Height 5 ft 10 in Weight 172 lb BMI 24.7 BP 122/66 Blood Pressure Location Rt brachial Position Sitting Respiration 16 Pulse 62 Pulse Source Pulse Oximeter Pulse Oximetry (%) 96 Intake Visit Reasons: PE Intake Note: Pt is here today for his annual phsyical Allergies penicillin V Allergy (Unknown, Verified 04/12/24 12:56) itching Medication List - Last Reconciled 04/12/24 by Kelsy Valdez MD albuterol sulfate 90 mcg/actuation 2 puffs inhalation Q4-6H PRN apixaban (Eliquis) 5 mg PO BID 90 days atorvastatin 20 mg PO DAILY blood sugar diagnostic (Accu-Chek Glenys Plus test strips) use 1 strip twice a day to test blood sugar cholecalciferol (vitamin D3) (Vitamin D3) 25 mcg PO DAILY dronedarone (Multaq) 400 mg PO Q12H 30 days fluticasone propionate 50 mcg/actuation 1 spray intranasal DAILY lancets (Accu-Chek Softclix Lancets) use 1 lancet twice a day to test blood sugar loratadine 10 mg PO DAILY Tobacco use date assessed: 04/12/24 Fall risk assessment: 1 Fall in past year Last assessed Fall Risk: 04/12/24 Dental Screening Dental Screen Date: 04/12/24 Did you have a dental visit in the last 12 months?: No Did you have a dental problem in the last 6 months where you did not have access to dental care?: No Was dental information given to patient?: No HPI PE HPI Details 84-year-old male with pertinent history of qpe-wrfdpfx-skpwbcmbf diabetes mellitus, gout, mixed hyperlipidemia, BPH , decreased hearing, recently found to have atrial fibrillation. He presented to the ER complaining of sudden onset of palpitations, not accompanied by orthopnea, no dyspnea, no chest pain, fever, nausea reported . He was treated with Cardizem, and at some point converted back to sinus rhythm at the ER, with resolution of symptoms. His thyroid stimulating hormone was within normal limits. He was seen by Cardiology who recommended starting Multaq 400 mg b.i.d. and continued on Eliquis 5 mg 1 tablet twice a day. ECG was done which did not show any acute abnormality. He is to follow-up with cardiology for further evaluation and for stress testing. Appointment is scheduled to see Dr. Durbin on 04/18/2024. Patient states that he stopped taking his metformin after he was seen at the ER, not sure whether he can take his metformin with his other new medications. He states that he has has also been off his diet during the football season, and has not been getting any regular exercise at all this past winter. He already made an appointment to see Dr. Betancur in September for his routine eye exam. He gets his yearly flu vaccine and is up-to-date with his pneumonia vaccination and Tdap but does not want to get any further COVID booster or shingles vaccine. [facility] Medical History Gout Noncompliance with medication regimen Vitamin D deficiency Allergic rhinitis Benign prostatic hyperplasia Dyslipidemia Diabetes mellitus with microalbuminuria, without long-term current use of insulin Surgical History Hx of cholecystectomy History of bladder surgery Family History Father HTN (hypertension) Son Diabetes mellitus Daughter No problems noted. Daughter No problems noted. Daughter No problems noted. Social History Housing: House Alcohol intake: never Patient Tobacco Use Status: Former Tobacco user Years Smoked: 12 yrs e-Cigarette/Vaping Use: Never Used service: No Current occupational status: retired Cognitive needs: No Hearing needs: No Vision needs: Yes Questionnaire PHQ-9 Over the last 2 weeks, how often have you been bothered by any of the following problems? 1. Little interest or pleasure in doing things: not at all 2. Feeling down, depressed, or hopeless: not at all 3. Trouble falling or staying asleep, or sleeping too much: not at all 4. Feeling tired or having little energy: not at all 5. Poor appetite or overeating: not at all 6. Feeling bad about yourself - or that you are a failure or have let yourself or your family down: not at all 7. Trouble concentrating on things, such as reading the newspaper or watching television: not at all 8. Moving or speaking so slowly that other people could have noticed. Or the opposite - being so fidgety or restless that you have been moving around a lot more than usual: not at all 9. Thoughts that you would be better off or of hurting yourself in some way: not at all Total score: 0 Depression Screening Interpretation: Negative Depression Screening Done: Yes 13938 - PHQ-9 Billing: Yes Source: Developed by Drs. Federico Ramirez, Kiley Ho, José Antonio Head and colleagues, with an educational roseann from [employer]. Thrive Questionnaire Date Thrive assessed: 04/12/24 I am a: Patient What is your living situation today?: I have a steady place to live Within the past 12 months, did the food you bought not last and you didn't have the money to get more?: Never true Within the past 12 months, did you worry whether your food would run out before you got money to buy more?: Never true Do you have trouble paying for medicines?: No Do you have trouble getting transportation to medical appointments?: No Do you have trouble paying your heating and electricity bill?: No Do you have trouble taking care of your child, family member or friend?: No Do you have trouble with day-to-day activities such as bathing, preparing meals, shopping, managing finances, etc.?: No Are you currently unemployed and looking for a job?: No Are you interested in more education?: No THRIVE Score: 0 AUDIT C Alcohol Use Questionnaire (AUDIT-C) 1. How often do you have a drink containing alcohol?: Never Total Score: 0 KARTHIK-7 AMB Questionnaire KARTHIK-7 Date KARTHIK - 7 assessed: 04/12/24 Feeling nervous, anxious, or on edge: 0 = Not at all Not being able to stop or control worryin = Not at all Worrying too much about different things: 0 = Not at all Trouble relaxin = Not at all Being so restless that it is hard to sit still: 0 = Not at all Becoming easily annoyed or irritable: 0 = Not at all Feeling afraid as if something awful might happen: 0 = Not at all Total KARTHIK-7 score (0-4 normal; 5-9 mild; 10-14 moderate; 15-21 severe): 0 Source: Developed by Drs. Federico Ramirez, Kiley Ho, José Antonio Head and colleagues, with an educational roseann from [employer]. KARTHIK-7 Assessment Billing KARTHIK-7 Assessment Tool: KARTHIK-7 Assessment 63066 Review of Systems Const Denies fatigue and Denies fever(s) Eyes Details: Sees Dr. Betancur, has an appointment in September Reports no additional complaints and Reports requires corrective lenses ENT Reports no additional complaints Card Denies chest pain, Denies chest pain with activity, Denies rapid heart rate, Denies edema, Denies lightheadedness, Denies dyspnea and Denies dyspnea on exertion Resp Denies cough, Denies dyspnea and Denies dyspnea on exertion GI Reports as per HPI, Denies melena, Denies hematochezia and Denies heartburn Reports no additional complaints Musc Reports no additional complaints Skin/Breast Denies lesions and Denies rash Neuro Reports no additional complaints Psych Reports no additional complaints Endo Denies fatigue, Denies polyphagia, Denies polydipsia and Denies polyuria Ronaldo/Lymph Denies easy bleeding and Denies easy bruising Aller/Immun Reports no additional complaints Physical exam (Primary Care) Vital Signs: Last Vital Signs Pulse 62 04/12/24 12:43 Resp 16 04/12/24 12:43 BP 122/66 04/12/24 12:43 Pulse Ox 96 04/12/24 12:43 BMI result Body Mass Index 24.7 Tobacco/Smoking Status: Tobacco use Status Tobacco use date assessed 04/12/24 04/12/24 12:46 Patient Tobacco Use Status Former Tobacco user 04/12/24 12:46 e-Cigarette/Vaping Use Never Used 04/12/24 12:46 PHQ-9: PHQ-9 Score PHQ-9: Total score 0 04/12/24 13:21 Depression Screening Interpretation: Negative Thrive Assessment: Date of Thrive Assessment Date Thrive assessed 04/12/24 04/12/24 13:21 Const General: comfortable and no acute distress Orientation/consciousness: patient oriented x3 HENMT Head: Yes normocephalic Mouth: Normal oral and palatal mucosa present and moist mucous membranes Eyes General: appearance normal, both eyes and all related structures Neck Neck: Yes full ROM, Yes no lymphadenopathy and Yes supple Resp Effort & Inspection: normal respiratory effort Auscultation: clear to auscultation bilaterally Cardio Rate: regular rate Rhythm: regular rhythm Heart sounds: S1 normal heart sound present and S2 normal heart sound present GI Palpation (GI): Soft to palpation, no guarding and no masses Auscultation: normal bowel sounds General: Yes no CVA tenderness Back/Spine/Pelvis Back: no CVA tenderness and No back tenderness Skin General skin exam: no rashes or lesions noted Neuro General: patient oriented x3, gait normal, tone normal, moves all extremities and no focal motor deficits Extrem General: Yes no clubbing, cyanosis or edema Psych Appearance: grossly normal and well kempt Mental Status: mental status grossly normal Speech and movement: Normal speech and movement present Affect: normal affect Attitude: cooperative Thought process: Normal thought process present Thought content: Normal thought content present Results Reviewed Results Reviewed: Name: Anderson Sampson Age/Sex: 84/M : 1940 Unit#: [id number] Attend Dr: Shandra Choi Re03/21/24 Status: DIS IN Location: [place] [address] Disch: 03/22/24 SPEC : [id number] MIGUEL: [birth year] STATUS: COMP REQ : [id number] RECD: 03/22/[address]: Octavia Gold MD COMP: 03/22/24 ENTERED: 03/22/24 [facility] DR: Kelsy Valdez MD ORDERED: CBC No Diff Test Result Flag Reference WBC 8.0 4.8-10.8 X10*3/uL RBC 4.22 L 4.60-5.80 X10*6/uL HGB 13.4 L 14.0-18.0 g/dl HCT 38.9 L 42.0-52.0 % MCV 92.2 80.0-98.0 fL MCH 31.8 27.0-33.0 pg MCHC 34.4 31.0-36.0 g/dl RDW 12.4 11.0-16.0 % PLT 214 160-400 X10*3/uL MPV 9.3 L 9.4-12.4 fL NRBC Pct Auto 0.0 0.0-0.2 /100WBC NRBC Abs Auto 0.000 0.0-0.012 X10*3/uL Laboratory Tests 04/11/24 06:21 Estimat Average Glucose 177 Hemoglobin A1c % 7.8 H Triglycerides 125 Cholesterol 150 LDL Cholesterol, Calc 78 HDL Cholesterol 47 Name: Anderson Sampson Age/Sex: 84/M : 1940 Unit#: [id number] Attend Dr: Shandra Choi Re03/21/24 Status: DIS IN Location: [place] [address] Disch: 03/22/24 SPEC : [id number] MIGUEL: 03/22/24 STATUS: COMP REQ : [id number] RECD: 03/22/[address]: Octavia Gold MD COMP: 03/22/24 ENTERED: 03/22/24-[address]: Kelsy Valdez MD ORDERED: BMP, TSH Test Result Flag Reference Sodium 140 135-145 mmol/L Potassium 3.6 3.3-5.1 mmol/L CL 109 H 96-108 mmol/L CO2 25 22-29 mmol/L Gap 10 L 12-20 BUN 13 9-16 mg/dL Creat 0.78 0.5-1.4 mg/dL Estimated CrCl 72.7 eGFR (calculated from the MDRD study equation) and eCrCl (calculated from the Cockcroft-Gault equation) are based on different parameters and may not yield comparable results. If eCrCl result is absurd, please check patient's height/weight. eGFR > 60 Chronic Kidney Disease: Estimated GFR < 60 mL/min/1.73m2 Severe Kidney Disease: Estimated GFR < 15 mL/min/1.73m2 Glucose, Random 166 H 60-115 mg/dL CA 9.1 8.4-10.2 mg/dL TSH 3rd Gen. 1.19 0.32-4.0 uIU/mL TSH 3rd Generation ([facility]) Coding Level of Care Code Est Pt Prev Care >65y(92891) Diagnoses Annual visit for general adult medical examination with abnormal findings Z00.01 Diabetes mellitus with microalbuminuria, without long-term current use of insulin E11.29; R80.9 Dyslipidemia E78.5 Paroxysmal atrial fibrillation I48.0 Additional Codes KARTHIK-7 Assessment Billing - KARTHIK-7 Assessment Tool: KARTHIK-7 Assessment 78989 ([id number]) PHQ-9 - 59517 - PHQ-9 Billing: Yes ([id number]) Assessment & Plan Assessment & Plan (1) Annual visit for general adult medical examination with abnormal findings: Code(s): Z00.01 - Encounter for general adult medical examination with abnormal findings Plan: Fasting labs results discussed with patient. Recommended dental visit every 6 months and yearly eye exam. Take adequate calcium in diet and vitamin-D 3 at 2000 IU per cap once a day, in addition to weight-bearing exercises to help maintain good muscle tone and weight control. No longer gets screening colonoscopies. Up-to-date with his flu vaccine, pneumonia vaccine and Tdap. Does not want to get the shingles vaccine or COVID vaccine (2) Diabetes mellitus with microalbuminuria, without long-term current use of insulin: Code(s): E11.29 - Type 2 diabetes mellitus with other diabetic kidney complication; R80.9 - Proteinuria, unspecified Category: Medical Plan: Diabetes mellitus not well controlled with hemoglobin A1c at 7.8%. Advised to start back on metformin 500 mg to take 1 tablet twice a day with meals. Continue checking blood sugar at home at least once a day and record results. Reinforced importan of following diet, and get regular exercise. Up-to-date with his diabetes retinopathy screening. (3) Dyslipidemia: Code(s): E78.5 - Hyperlipidemia, unspecified Category: Medical Plan: Recent fasting lipids are within normal limits, continued on atorvastatin 20 mg daily (4) Paroxysmal atrial fibrillation: Code(s): I48.0 - Paroxysmal atrial fibrillation Category: Medical Plan: Currently on Multaq 400 mg every 12 hours and is on Eliquis 5 mg taken 1 tablet twice a day. Followed by cardiology Orders: Orders Lipid Panel 08/07/24 E11.29 - Type 2 diabetes mellitus with other diabetic kidney complication, E55.9 - Vitamin D deficiency, unspecified, E78.5 - Hyperlipidemia, unspecified, I48.0 - Paroxysmal atrial fibrillation, R80.9 - Proteinuria, unspecified, Z00.01 - Encounter for general adult medical examination with abnormal findings Hemoglobin A1c 08/07/24 E11.29 - Type 2 diabetes mellitus with other diabetic kidney complication, E55.9 - Vitamin D deficiency, unspecified, E78.5 - Hyperlipidemia, unspecified, I48.0 - Paroxysmal atrial fibrillation, R80.9 - Proteinuria, unspecified, Z00.01 - Encounter for general adult medical examination with abnormal findings IRON PROFILE 08/07/24 E11.29 - Type 2 diabetes mellitus with other diabetic kidney complication, E55.9 - Vitamin D deficiency, unspecified, E78.5 - Hyperlipidemia, unspecified, I48.0 - Paroxysmal atrial fibrillation, R80.9 - Proteinuria, unspecified, Z00.01 - Encounter for general adult medical examination with abnormal findings Alanine Aminotransferase 08/07/24 E11.29 - Type 2 diabetes mellitus with other diabetic kidney complication, E55.9 - Vitamin D deficiency, unspecified, E78.5 - Hyperlipidemia, unspecified, I48.0 - Paroxysmal atrial fibrillation, R80.9 - Proteinuria, unspecified, Z00.01 - Encounter for general adult medical examination with abnormal findings Aspartate Amino Transferase 08/07/24 E11.29 - Type 2 diabetes mellitus with other diabetic kidney complication, E55.9 - Vitamin D deficiency, unspecified, E78.5 - Hyperlipidemia, unspecified, I48.0 - Paroxysmal atrial fibrillation, R80.9 - Proteinuria, unspecified, Z00.01 - Encounter for general adult medical examination with abnormal findings Basic Metabolic Panel Fasting 08/07/24 E11.29 - Type 2 diabetes mellitus with other diabetic kidney complication, E55.9 - Vitamin D deficiency, unspecified, E78.5 - Hyperlipidemia, unspecified, I48.0 - Paroxysmal atrial fibrillation, R80.9 - Proteinuria, unspecified, Z00.01 - Encounter for general adult medical examination with abnormal findings Complete Blood Count Auto Diff 08/07/24 E11.29 - Type 2 diabetes mellitus with other diabetic kidney complication, E55.9 - Vitamin D deficiency, unspecified, E78.5 - Hyperlipidemia, unspecified, I48.0 - Paroxysmal atrial fibrillation, R80.9 - Proteinuria, unspecified, Z00.01 - Encounter for general adult medical examination with abnormal findings Vitamin D 25-OH Total 08/07/24 E11.29 - Type 2 diabetes mellitus with other diabetic kidney complication, E55.9 - Vitamin D deficiency, unspecified, E78.5 - Hyperlipidemia, unspecified, I48.0 - Paroxysmal atrial fibrillation, R80.9 - Proteinuria, unspecified, Z00.01 - Encounter for general adult medical examination with abnormal findings Medications: Changed From metformin 500 mg PO BIDWMEAL 200 tabs 1RF E11.29 - Type 2 diabetes mellitus with other diabetic kidney complication, R80.9 - Proteinuria, unspecified To metformin 500 mg PO BIDWMEAL 3 months 180 tabs 2RF E11.29 - Type 2 diabetes mellitus with other diabetic kidney complication, R80.9 - Proteinuria, unspecified
[2024-04-12 12:43] VITALS: BP 122/66; PULSE 62; RESP 16; O2SAT 96; BMI 24.7
--- OUTSIDE RECORDS SUMMARY | 2024-04-12 15:10 | XMS_ITS ---
Author Organization [facility] [place] Address [address] [place] [address] Care Team Providers Care Art Supervisor Name Role Phone Courtney CARRION, Kelsy Terry Primary Care Provider Un available Barbie, Jamari Unavailable [phone] Allergies Allergen (clinical drug ingredient) Drug/Non Drug [...] an other tobacco user? No Vital Signs Blood pressure systolic 118 mm Hg 10/11/19 24 Blood pressure diastolic 73 mm Hg 024 Height 5 ft 8 in in 10/11/2023 Weight 174 lbs 10/11/2023 BMI 26.45 kg/m2 10/11/2023 Procedures Procedure Date Ordered Date Performed Result Body Sit e 44161-VSKKDQF NAIL, 6 OR MORE 10/11/2023 N/A 81709-Tfvmagcs Plate 10/11/2023 N/A 16402-WMSV SKIN LESIONS, 2 TO 4 10/11/2023 N/A Encounters Encounter Location Date Provider Diagnosis [facility] [address] [address] [place] [address] 10/11/2023 Jamari Valentin Type 2 diabetes mellitus [...] INSTRUCTIONS.pdf) Pending Test Test Name Order Date 15278-NBYTWSP NAIL, 6 OR MORE 10/11/2023 95153-Ngxcecsw Plate 10/11/2023 69368-FWPP SKIN LESIONS, 2 TO 4 10/11/19 24 Next Appt Details Follow Up: prn, Reason: Provider Name:Jamari Valentin , 10/19/2024 01:30:00 PM, [address] [place] [address], [id number], Procedure Notes * Category Sub-Category Detail Notes [...] Motrin was recommended for pain or discomfort (46443) , DIABETES: Pt was advised as to [...] of a nail nipper and/or dremel-type grinder lap, to a more viable healthy nail plate or bed tissue 6-10. Silver nitrate used for any petechial bleeding as necessary. Definitive antifungal treatment options have been reviewed and discussed with the patient. The patient chooses, no pharmaceutical tx - 53963 Keratoma Treatment Parring or Cutting o f Benign Hyperkeratotic Lesion(s) 00408 ( 2-4 Lesions ) - The Benign hyperkeratotic lesions, as described above were pared, and/or cut utilizing a sterile 15 blade, tissue nippers, and/or dremel - 28821 Progress Notes * Anderson SAMPSON UDOB:1939 (83 yo M)Acc No.[id number]:10/11/2023 Progress Note Patient:?Anderson Sampson U Provider:?Jamari Valentin DPM :1940???Age:83 Y???Sex:Male Andrea e:10/11/2023 Address:[address] [place] [address] [facility] Pcp:Dawn Morrison Subjective: * Chief Complaints: * [...] 10/1981gall bladder, removed * Hospitalization/Major Diagno stic Procedure:?[facility]- Covid 08/2023 * Family History:?Mother: dece ased.?Father: .? * Social History:?Tobacco Use:?Tobacco Use/Smoking?Are you a:?former smoker ?Additional Findings: Tobacco Non-User?Ex-cigarette smoker ?Tobacco use other than smoking?Are you an other tobacco user??No ???Miscellaneous:?Caffeine: yes, coffee,tea , 1-2 cups per day. ?Children: yes. ?Exercise: yes, Shopping, driving car, gardening. ?Marital status: . 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 * Medications:?TakingAtorvasta tin Calcium 20 MG Tablet [...] INSTRUCTIONS.pdf (DIABETIC FOOT CARE INSTRUCTIONS.pdf)?? 3.?Ingrown nail?Procedure: 55423-Frnpguva Plate * Procedures:?Debride Nail 6-10:?Nail debridement?Performance of this nail treatment by a nonprofessional would put this patients foot and overall health at risk. Therefore, nail debridement was performed extensively to reduce/remove overall nail length, girth, thickness, subungual debris, and necrotic tissue, by manual and/or electrical means through the use of a nail nipper and/or dremel-type grinder lap, to a more viable healthy nail plate or bed tissue 6-10. Silver nitrate used for any petechial bleeding as necessary. Definitive antifungal treatment options have been reviewed and discussed with the patient. The patient chooses, no pharmaceutical tx - 99766.?Keratoma Treatment:?Parring or Cutting of Benign Hyperkeratotic Lesion(s)?92848 ( 2-4 Lesions ) - The Benign hyperkeratotic lesions, as described above were pared, and/or cut utilizing a sterile 15 blade, tissue nippers, and/or dremel - 11815.?Nail Avulsion:?Location?Lateral nail border,?T5.?Anesthesia?was deferred - NEUROPATHY: patient [...] Motrin was recommended for pain or discomfort (08983) , DIABETES: Pt was advised as to the risk of delayed or nonhealing due to diabetes. Pt is to call the office with any questions, concerns, or complications.? * Immunizations:? Influenza (Not administered - Refused: Patient decision) * Procedure Codes:?44736 DEBRI DE NAIL, 6 OR MORE, Modifiers: XS 83732 Avulsion Plate, Modifiers: XS , [id number] TRIM SKIN LESIONS, 2 TO 4, Modifiers: [...] Valentin DPM Date:?2023 Generated for Gregorio sands/Boby/Molly on:?04/12/2024 03:09 PM EST History and Physical Notes * HPI [...]
--- OUTSIDE RECORDS SUMMARY | 2024-04-12 15:10 | XMS_ITS ---
Author Organization [facility] [place] Address [address] [place] [address] Care Team Providers Care Director Call Name Role Phone Courtney CARRION, Kelsy Terry Primary Care Provider Un available Barbie, Jamari Unavailable [phone] Allergies Allergen (clinical drug ingredient) Drug/Non Drug [...] Tobacco non-user Current no nsmoker Vital Signs Blood pressure systolic 130 mm Hg 04/11/19 Blood pressure diastolic 72 mm Hg 025 Heart Rate 63 /min 04/10/2024 Height 5 ft 8 in in 04/10/2024 Weight 170 lbs 04/10/2024 BMI 25.85 kg/m2 04/10/2024 Procedures Procedure Date Ordered Date Performed Result Body Sit e 80559-KSMCKWB NAIL, 6 OR MORE 04/10/2024 N/A 63540-Tcrrrroz Plate 04/10/2024 N/A 62283-ZPIG SKIN LESIONS, 2 TO 4 04/10/2024 N/A Encounters Encounter Location Date Provider Diagnosis [facility] [place] [address] [place] [address] 04/10/2024 Jamari Valentin Type 2 diabetes mellitus [...] Treatment Pending Test Test Name Order Date 13890-BYNOBWM NAIL, 6 OR MORE 04/10/2024 47842-Nsujkicg Plate 04/10/2024 94385-LWWJ SKIN LESIONS, 2 TO 4 04/11/19 25 Next Appt Details Follow Up: prn, Reason: Provider Name:Jamari Valentin , 10/19/2024 01:30:00 PM, [address] [facility], [place], [address], Procedure Notes * Category Sub-Category [...] Motrin was recommended for pain or discomfort (71246), DIABETES: Pt was advised as to the [...] use of a nail nipper and/or dremel-type computer numerical control grinder, to a more viable healthy nail plate [...] to maintain effectiveness in symptomatic relief - 36659 Keratoma Treatment Parring or Cutting o f [...] instrumentation by the physician of record - 24342 Progress Notes * ADRIÁNHeladioel UDOB:1939 (84 yo M)Acc No.[id number]:04/10/2024 Progress Note Patient:?ADRIÁNAnderson U Provider:?Jamari Valentin DPM :1940???Age:84 Y???Sex:Male Andrea e:04/10/2024 Address:[address] [place] [address], [facility] Pcp:Dawn Morrison Subjective: * Chief Complaints: * [...] mors?denies.? * Medical History:? * Surgical History:?bladder armenta rgery 11/1941gall stones 10/1981gall bladder, removed * Hospitalization/Major Diagno stic Procedure:?[facility] [place]- Covid 08/2023 * Family History:?Mother: dece ased.?Father: [...] car, gardening. ?Marital status: . 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 * Medications:?TakingEliquis M ultaq Atorvastatin Calcium 20 [...] to treatment,Improvement??? Plan: * Treatment: 2.?Ingrown nail?Procedure: 86057-Evesanxt Plate * Procedures:?Debride Nail 6-10:?Nail debridement?Due to [...] use of a nail nipper and/or dremel-type computer numerical control grinder, to a more viable healthy nail plate [...] to maintain effectiveness in symptomatic relief - 28367.?Keratoma Treatment:?Parring or Cutting of Benign Hyperkeratotic Lesion(s)?(-56) [...] instrumentation by the physician of record - 92750.?Nail Avulsion:?Location?Lateral nail border,?T5.?Anesthesia?was deferred - NEUROPATHY: patient [...] Motrin was recommended for pain or discomfort (11238), DIABETES: Pt was advised as to the risk of delayed or nonhealing due to diabetes. Pt is to call the office with any questions, concerns, or complications.? * Procedure Codes:?29484 DEBRI DE NAIL, 6 OR MORE, Modifiers: XS 93976 Avulsion Plate, Modifiers: XS , [id number] TRIM SKIN LESIONS, 2 TO 4, Modifiers: [...] Valentin DPM Date:?2024 Generated for Gregorio sands/Boby/Molly on:?04/12/2024 03:09 PM [...]
--- OUTSIDE RECORDS SUMMARY | 2024-04-12 15:10 | XMS_ITS ---
Author Organization [facility] Address [address] [place] [address] Care Team Providers Care Dairy Worker Name Role Phone Courtney CARRION, Kelsy Terry Primary Care Provider Un available Jamari Valentin Unavailable [phone] REASON FOR VISIT A1C Encounters Encounter Location Date Provider Diagnosis [address] [address] 04/10/2024 Jamari Valentin Plan Of Treatment Next Appt Details Provider Name:Jamari Vlaentin , 10/19/2024 01:30:00 PM, [address] [place], [address], Progress Notes * Anderson SAMPSON UDOB:1939 (84 yo M)Acc No.[id number]:04/10/2024 Patient:?Anderson SAMPSON :1940???Age:84 Y???Sex:Male Address:[address] [place] [address] [place] [address] * * Date:?
--- OUTSIDE RECORDS SUMMARY | 2024-04-12 15:10 | XMS_ITS | Patient Health Record ---
Author Organization [facility] Address [address] [place] [address] Care Team Providers Care Supervisor Doping Name Role Phone Courtney CARRION, Kelsy Terry Primary Care Provider Un available Jamari Valentin Unavailable [phone] Allergies Allergen (clinical drug ingredient) Drug/Non Drug [...] Problem Acquired hammer toe of right foot (2875064349506370 ) Other hammer toe(s) (acquired), right foot (M20.41) Active confirmed Response to treatment, Improvemen t Problem Acquired hammer toe of left foot (2867285619528666 ) Other hammer toe(s) (acquired), left foot (M20.42) Active confirmed Response to treatment, Improvemen t Problem Polyneuropathy due to type 2 diabetes mellitus (910890884) Type 2 diabetes mellitus with diabetic polyneuropathy (E11.42) Active confirmed Vital Signs Heart Rate 63 /min 04/10/2024 Blood pressure diastolic 72 mm Hg 04/10/2024 Height 5 ft 8 in in 04/10/2024 Blood pressure systolic 130 mm Hg 04/10/2024 Weight 170 lbs 04/10/2024 BMI 25.85 kg/m2 04/10/2024 Procedures Procedure Date Ordered Date Performed Result Body Sit e 71808-QYEOXIJ NAIL, 6 OR MORE 10/11/2023 N/A 00403-Fummjekw Plate 10/11/2023 N/A 14582-VSCT SKIN LESIONS, 2 TO 4 10/11/2023 N/A 25749-RIRGJRL NAIL, 6 OR MORE 04/10/2024 N/A 09553-Dfjrkzhp Plate 04/10/2024 N/A 62820-XHYP SKIN LESIONS, 2 TO 4 04/10/2024 N/A Encounters Encounter Location Date Provider Diagnosis [facility] [place] [address] [place] [address] 10/11/2023 Jamari Valentin Type 2 diabetes mellitus with diabetic polyneuropathy E11.42 ; Tinea unguium B35.1 ; Other hammer toe(s) (acquired), right foot M20.41 ; Other hammer toe(s) (acquired), left foot M20.42 and Ingrown nail L60.[address] [address] 04/10/2024 Jamari Valentin Type 2 diabetes mellitus with diabetic polyneuropathy E11.42 ; Tinea unguium B35.1 ; Ingrown nail L60.0 ; Other hammer toe(s) (acquired), right foot M20.41 and Other hammer toe(s) (acquired), left foot M20.[address] [address] 04/10/2024 Jamari Valentin Assessments Encounter Date Diagnosis [...] Treatment Pending Test Test Name Order Date 57654-EUQTPIK NAIL, 6 OR MORE 12/13/2017 49933-KBLJUMY NAIL, 6 OR MORE 03/14/2018 49660-MVPAXUZ NAIL, 6 OR MORE 06/13/2018 16313-ATDDLCS NAIL, 6 OR MORE 06/30/2021 75025-AVOFKZY NAIL, 6 OR MORE 02/16/2022 46068-KICSDKR NAIL, 6 OR MORE 07/20/2022 63801-KUYWJMX NAIL, 6 OR MORE 04/08/2023 28589-BLZWRMQ NAIL, 6 OR MORE 10/11/2023 35834-TCOPOGA NAIL, 6 OR MORE 04/10/2024 92014-Ptiateao Plate 04/10/2024 80271-Xidnllwn Plate 10/11/2023 75196-Fbkpdazr Plate 04/08/2023 79872-Lkiswwti Plate 07/20/2022 38138-Ozfjtymr Plate 02/16/2022 91703-Zywztihr Plate 06/30/2021 95516-Dzpidxwo Plate Each Additional 69479-Backkvfn Plate Each Additional 11/2022 40693-Eaxwaktr Plate Each Additional 11903-Yagvvggn Plate Each Additional 02/2023 95052-HKKD SKIN LESIONS, 2 TO 4 10/11/19 24 79731-XVGM SKIN LESIONS, 2 TO 4 04/11/19 25 83586-PSRY SKIN LESIONS, 2 TO 4 07/21/19 23 97082-ZNUI SKIN LESIONS, 2 TO 4 02/16/19 23 17487-MUNB SKIN LESIONS, 2 TO 4 07/01/19 22 19611-XGFP SKIN LESIONS, 2 TO 4 06/14/19 19 Next Appt Details Provider Name:Jamari Valentin , 10/19/2024 01:30:00 PM, [address] [place], [address], Insurance Providers Payer Name Payer Address Payer Phone Subscriber Number Group Number Insured Name Patient Relationship to Insured Coverage Start Date Coverage End Date [facility] [address] [address] [place] [address] [phone] [id number] [facility] Self - patient is the insured Medicare National Govt [facility] [address] [place] [phone] [id number] Anderson Sampson Self - patient is the [...] gall bladder, removed Hospitalization History Reason Date(Month/Year) [facility] [place]- Covid 08/2023
== END 2024-04-12 13:18 | disposition home or self-care (01) ==
PROVIDERS: PCP Internal Medicine; Visit Provider Internal Medicine
DX: Z00.00 Encounter for general adult medical examination without abnormal findings (principal); E11.29 Type 2 diabetes mellitus with other diabetic kidney complication; I48.0 Paroxysmal atrial fibrillation; R80.9 Proteinuria, unspecified; E78.5 Hyperlipidemia, unspecified

== ENCOUNTER → 2024-04-12 12:39 | Outpatient (BNVA) | payer OTHER, SELFPAY | PROVIDERS: PCP Internal Medicine; Visit Provider Internal Medicine | DX: Z00.01 Encounter for general adult medical examination with abnormal findings (principal); E11.29 Type 2 diabetes mellitus with other diabetic kidney complication; R80.9 Proteinuria, unspecified; E78.5 Hyperlipidemia, unspecified; I48.0 Paroxysmal atrial fibrillation | CPT/HCPCS: 96127; 99397 ==

== ENCOUNTER 2024-04-18 13:23 | Outpatient (AMB) | payer OTHER, SELFPAY ==
--- NOTE | 2024-04-18 13:43 | MHC.OFFVIS ---
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 Accompanied by: Self / Same As Patient Allergies penicillin V Allergy (Unknown, Verified 04/12/24 12:56) itching Medication List - Last Reconciled 04/18/24 by Theo Durbin MD apixaban (Eliquis) 5 mg PO BID 90 days atorvastatin 20 mg PO DAILY blood sugar diagnostic (Accu-Chek Glenys Plus test strips) use 1 strip twice a day to test blood sugar cholecalciferol (vitamin D3) (Vitamin D3) 25 mcg PO DAILY dronedarone (Multaq) 400 mg PO Q12H 30 days fluticasone propionate 50 mcg/actuation 1 spray intranasal DAILY lancets (Accu-Chek Softclix Lancets) use 1 lancet twice a day to test blood sugar loratadine 10 mg PO DAILY metformin 500 mg PO BIDWMEAL 3 months HPI Comments Details: 84 year old gentleman who was seen by Dr Roberts while inpatient for Afib with RVR and CP. He converted to sinus and was started on Multaq. He has been doing well and no further chest pain or palpitations. ECG is showing Sinus rhythm. He is on Eliquis for anticoagulation. No other acute issues. PENDING SALE TO [facility] Medical History Gout Noncompliance with medication regimen Vitamin D deficiency Allergic rhinitis Benign prostatic hyperplasia Dyslipidemia Diabetes mellitus with microalbuminuria, without long-term current use of insulin Surgical History Hx of cholecystectomy History of bladder surgery Family History Father HTN (hypertension) Son Diabetes mellitus Daughter No problems noted. Daughter No problems noted. Daughter No problems noted. Social History Housing: House Alcohol intake: never Patient Tobacco Use Status: Former Tobacco user Years Smoked: 12 yrs e-Cigarette/Vaping Use: Never Used service: No Current occupational status: retired Cognitive needs: No Hearing needs: No Vision needs: Yes Review of Systems Const Denies chills, Denies fatigue, Denies fever(s), Denies frequent falls, Denies weakness, Denies weight gain and Denies weight loss ENT Denies dizziness Card Denies chest pain, Denies leg edema, Denies lightheadedness, Denies palpitations, Denies dyspnea and Denies dyspnea on exertion Resp Denies cough, Denies dyspnea and Denies dyspnea on exertion GI Denies hematochezia Musc Denies abnormal gait, Denies muscle weakness, Denies numbness, Denies radiating pain into limb and Denies tingling Neuro Denies abnormal gait, Denies dizziness, Denies frequent falls, Denies numbness, Denies tingling and Denies weakness Endo Denies fatigue and Denies palpitations Physical Exam Vital Signs: Last Vital Signs Pulse 62 04/18/24 13:45 BP 100/60 04/18/24 13:45 BMI result Body Mass Index 24.9 GENERAL APPEARANCE: in no acute distress, pleasant. NECK: no carotid bruit, no jugular venous distention. SKIN: no suspicious lesions, warm and dry. HEART: no murmurs, regular rate and rhythm. LUNGS: clear to auscultation bilaterally. ABDOMEN: soft, nontender. EXTREMITIES: no edema. PERIPHERAL PULSES: equal. NEUROLOGIC: No gross deficits, AAO X 3 Office Procedures EKG Details: Sinus rhythm 62 beats per minute, normal axis, nonspecific ST changes, QTC 424 milliseconds. 02595-Bsafpjjznuborbxwg, Complete Assessment & Plan Assessment & Plan (1) Paroxysmal atrial fibrillation: Code(s): I48.0 - Paroxysmal atrial fibrillation Category: Medical Plan 84 male with PAF and CP. He underwent nuclear perfusion imaging which was normal. He is in sinus rhythm and is taking Multaq and Eliquis. Tolerating medications well. Clinically stable. Same medications for now. He will follow-up with Dr. Roberts in 4 months. Thank you for allowing me to participate in the care of your patient. Please feel free to contact me if you have any questions. Medications: Refilled metformin 500 mg PO BIDWMEAL 180 tabs 0RF 3 months E11.29 - Type 2 diabetes mellitus with other diabetic kidney complication, R80.9 - Proteinuria, unspecified Coding Level of Care Code Est Pt Level 4 (00165) Diagnoses Paroxysmal atrial fibrillation I48.0 CPT Codes EKG - CPT: 72004-Hwbusylpaucomzhfv, Complete ([id number])
[2024-04-18 13:45] VITALS: BP 100/60; PULSE 62; BMI 24.9
== END 2024-04-18 14:12 | disposition home or self-care (01) ==
LOC: HO.HCS 13:24
PROVIDERS: PCP Internal Medicine; Visit Provider Internal Medicine Cardiovascular Disease
DX: I48.0 Paroxysmal atrial fibrillation (principal)
CPT/HCPCS: 99214

== ENCOUNTER → 2024-04-18 13:23 | Outpatient (BNVA) | payer OTHER, SELFPAY | PROVIDERS: PCP Internal Medicine; Visit Provider Internal Medicine Cardiovascular Disease | DX: I48.0 Paroxysmal atrial fibrillation (principal); R94.31 Abnormal electrocardiogram [ECG] [EKG] | CPT/HCPCS: 93005; 99212 ==

== ENCOUNTER 2024-06-23 10:40 | Emergency (ER) | payer OTHER, SELFPAY ==
--- NOTE | ~2024-06-23 | XR_ITS ---
CLINICAL HISTORY: fall on left knee 4 view left knee Comparison: None Findings: No fractures or dislocations. Tricompartmental periarticular osteophyte formation, indicating osteoarthritis. No joint effusion. No radiopaque foreign body. Arterial vascular calcifications are present. IMPRESSION: 1. No acute findings. This document has been electronically signed by: Laurence Fuentes MD on 06/23/2024 12:10:04
[2024-06-23 10:50] VITALS: BP 151/76; PULSE 60; RESP 18; TEMP 36.5; O2SAT 99; BMI 25.7
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
[2024-06-23 12:40] VITALS: BP 148/72; PULSE 66; RESP 18; TEMP 36.7; O2SAT 99
[2024-06-23] MEDS: cephALEXin 500 MG CAPSULE PO (12:51)
[2024-06-23] MEDS: Bacitracin Oint 0.9 GM PACKET 1 APPL TOPICAL (12:52)
[2024-06-23] MEDS: Diphth,Pertus(ACell),Tet Adult 0.5 ML SYRINGE IM (12:52)
--- NOTE | 2024-06-23 12:55 | PC.NURSE ---
lt knee abrasion cleaned, bacitracin applied/dressing applied, pt medicated with abx per order, tetanus given per order, pt to discharge home.
[2024-06-23 13:00] VITALS: BP 148/72; PULSE 66; RESP 18; TEMP 36.7; O2SAT 99
== END 2024-06-23 13:00 | disposition home or self-care (01) ==
PROVIDERS: Emergency Provider Emergency Medicine; PCP Internal Medicine
DX: S80.812A Abrasion, left lower leg, initial encounter (principal); W19.XXXA Unspecified fall, initial encounter; Y93.9 Activity, unspecified; Y92.9 Unspecified place or not applicable; Y99.9 Unspecified external cause status; M79.605 Pain in left leg; Z23 Encounter for immunization
CPT/HCPCS: 73564; 90471; 90715; 99284

== ENCOUNTER → 2024-06-23 11:10 | Outpatient (BNV) | payer OTHER, SELFPAY | PROVIDERS: Emergency Provider Emergency Medicine; PCP Internal Medicine; Visit Provider Radiology Diagnostic Radiology | DX: S80.912A Unspecified superficial injury of left knee, initial encounter (principal); W19.XXXA Unspecified fall, initial encounter | CPT/HCPCS: 73564 ==

== ENCOUNTER 2024-06-28 11:05 | Outpatient (AMB) | payer OTHER, SELFPAY ==
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
[2024-06-28 11:51] VITALS: BP 118/70; PULSE 59; TEMP 36.3; O2SAT 95; BMI 25.8
== END 2024-06-28 12:15 | disposition home or self-care (01) ==
LOC: HO.HMCC 11:06
PROVIDERS: PCP Internal Medicine; Visit Provider Internal Medicine
DX: S80.212S Abrasion, left knee, sequela (principal)

== ENCOUNTER → 2024-06-28 11:05 | Outpatient (BNVA) | payer OTHER, SELFPAY | PROVIDERS: PCP Internal Medicine; Visit Provider Internal Medicine | DX: S80.212D Abrasion, left knee, subsequent encounter (principal) | CPT/HCPCS: 99212 ==

== ENCOUNTER 2024-08-16 09:05 | Outpatient (AMB) | payer OTHER, SELFPAY ==
[2024-08-16 09:26] VITALS: BP 98/52; PULSE 62; RESP 16; TEMP 36.6; O2SAT 95; BMI 25.7
--- NOTE | 2024-08-16 09:26 | A.OFFPC_ITS ---
Vital Signs 08/16/24 09:26 Height 5 ft 8 in Weight 169 lb BMI 25.7 BP 98/52 L Blood Pressure Location Rt brachial Position Sitting Respiration 16 Pulse 62 Pulse Source Pulse Oximeter Temp 97.9 F Temp Source Oral Pulse Oximetry (%) 95 Oxygen Delivery Method Room Air Intake Visit Reasons: 4m f/u Intake Note: Pt is here today for his 4mo. f/u Allergies penicillin V Allergy (Unknown, Verified 08/16/24 09:43) itching Medication List - Last Reconciled 08/16/24 by Kelsy Valdez MD acetaminophen ER (Tylenol Arthritis Pain) 650 mg PO Q12H apixaban (Eliquis) 5 mg PO BID 90 days atorvastatin 20 mg PO DAILY blood sugar diagnostic (Accu-Chek Glenys Plus test strips) use 1 strip twice a day to test blood sugar cholecalciferol (vitamin D3) (Vitamin D3) 25 mcg PO DAILY dronedarone (Multaq) 400 mg PO Q12H 30 days fluticasone propionate 50 mcg/actuation 1 spray intranasal DAILY lancets (Accu-Chek Softclix Lancets) use 1 lancet twice a day to test blood sugar metformin 500 mg PO BIDWMEAL 3 months Tobacco use date assessed: 08/16/24 Last assessed Fall Risk: 08/16/24 Dental Screening Dental Screen Date: 08/16/24 Did you have a dental visit in the last 12 months?: Yes Did you have a dental problem in the last 6 months where you did not have access to dental care?: No Was dental information given to patient?: Patient has dentist HPI 4m f/u HPI Details 84-year-old male with with a history of diabetes mellitus, dyslipidemia, benign prostatic hyperplasia and paroxysmal atrial fibrillation currently anticoagulated with apixaban and on Multaq, presents today for follow-up. He has been doing well, denies any chest pain, shortness of breath or lightheadedness. No falls since last visit. He sees Dr. Kj mullins for his diabetes retinopathy screening, as per patient no eye involvement from diabetes. Copy of last eye exam requested. Has been compliant with taking his medications but admits to just taking his atorvastatin twice a week at times. Has not yet had his fasting labs done but A1c done at clinic today is at 7%. He has had all his vaccines but does not want to get the shingles vaccine or RSV PFSH Medical History (Updated 08/16/24 @ 09:54 by Kelsy Valdez MD) History of gout Noncompliance with medication regimen Vitamin D deficiency Benign prostatic hyperplasia Dyslipidemia Diabetes mellitus with microalbuminuria, without long-term current use of insu leanne Surgical History Hx of cholecystectomy History of bladder surgery Family History Father HTN (hypertension) Son Diabetes mellitus Daughter No problems noted. Daughter No problems noted. Daughter No problems noted. Social History Housing: House Alcohol intake: never Patient Tobacco Use Status: Former Tobacco user Years Smoked: 12 yrs e-Cigarette/Vaping Use: Never Used service: No Current occupational status: retired Cognitive needs: No Hearing needs: No Vision needs: Yes Questionnaire PHQ-9 Over the last 2 weeks, how often have you been bothered by any of the following problems? Depression Screening Interpretation: Negative Depression Screening Done: Yes Source: Developed by Drs. Federico Ramirez, Kiley Ho, José Antonio Head and colleagues, with an educational roseann from [employer]. Thrive Questionnaire Date Thrive assessed: 04/12/24 KARTHIK-7 AMB Questionnaire KARTHIK-7 Date KARTHIK - 7 assessed: 04/12/24 Source: Developed by Drs. Federico Ramirez, José Antonio Brower and colleagues, with an educational roseann from [employer]. Review of Systems Const Denies chills, Denies fatigue, Denies fever(s), Denies frequent falls, Denies lethargy, Denies weakness and Reports weight loss Eyes Details: Sees Dr. Betancur for his diabetes retinopathy screening, request of last diabetes eye exam requested ENT Reports no additional complaints and Denies dizziness Card Denies chest pain, Denies leg edema, Denies lightheadedness, Denies palpitations, Denies dyspnea and Denies dyspnea on exertion Resp Denies cough, Denies dyspnea and Denies dyspnea on exertion GI Denies abdominal pain, Denies melena, Denies hematochezia, Denies change in bowel habits and Denies heartburn Reports no additional complaints Musc Denies abnormal gait, Denies muscle weakness, Denies numbness, Denies radiating pain into limb and Denies tingling Skin/Breast Denies unusual bruising Neuro Denies abnormal gait, Denies dizziness, Denies frequent falls, Denies numbness, Denies tingling and Denies weakness Psych Reports no additional complaints Endo Denies fatigue and Denies palpitations Ronaldo/Lymph Reports no additional complaints Aller/Immun Reports no additional complaints Physical exam (Primary Care) Vital Signs: Last Vital Signs Temp 97.9 F 08/16/24 09:26 Pulse 62 08/16/24 09:26 Resp 16 08/16/24 09:26 BP 98/52 L 08/16/24 09:26 Pulse Ox 95 08/16/24 09:26 Oxygen Delivery Method Room Air 08/16/24 09:26 BMI result Body Mass Index 25.7 Tobacco/Smoking Status: Tobacco use Status Tobacco use date assessed 08/16/24 08/16/24 09:29 Patient Tobacco Use Status Former Tobacco user 08/16/24 09:29 e-Cigarette/Vaping Use Never Used 08/16/24 09:29 Depression Screening Interpretation: Negative Thrive Assessment: Date of Thrive Assessment Date Thrive assessed 04/12/24 08/16/24 09:29 Const General: comfortable and no acute distress Orientation/consciousness: patient oriented x3 HENMT Head: Yes normocephalic Mouth: Normal oral and palatal mucosa present and moist mucous membranes Eyes General: appearance normal, both eyes and all related structures Neck Neck: Yes full ROM, Yes no lymphadenopathy and Yes supple Resp Effort & Inspection: normal respiratory effort Auscultation: clear to auscultation bilaterally Cardio Rate: regular rate Rhythm: regular rhythm Heart sounds: S1 normal heart sound present and S2 normal heart sound present GI Palpation (GI): Soft to palpation, no guarding and no masses Auscultation: normal bowel sounds General: Yes no CVA tenderness Back/Spine/Pelvis Back: no CVA tenderness and No back tenderness Skin General skin exam: no rashes or lesions noted Neuro General: patient oriented x3, gait normal, tone normal, moves all extremities and no focal motor deficits Extrem General: Yes no clubbing, cyanosis or edema Psych Appearance: grossly normal and well kempt Mental Status: mental status grossly normal Speech and movement: Normal speech and movement present Affect: normal affect Results AMB Hemoglobin A1c AMB Hemoglobin A1c 7.0 % Last Edit by Cherie Ceballos CMA on 08/16/24 09:30 Results Reviewed Results Reviewed: Laboratory Last Values Hgb A1c (Clinic) 7.0 % (4.0-6.0) H 08/16/24 09:24 Coding Level of Care Code Est Pt Level 4 (26579) Diagnoses Paroxysmal atrial fibrillation I48.0 Dyslipidemia E78.5 Diabetes mellitus with microalbuminuria, without long-term current use of insulin E11.29; R80.9 Assessment & Plan Assessment & Plan (1) Paroxysmal atrial fibrillation: Code(s): I48.0 - Paroxysmal atrial fibrillation Category: Medical Plan: Currently on Multaq and Eliquis followed by cardiology, currently asymptomatic (2) Dyslipidemia: Code(s): E78.5 - Hyperlipidemia, unspecified Category: Medical Plan: Patient advised to get his fasting lipids checked, labs have already been ordered. Currently on atorvastatin but has been taking it only twice a week (3) Diabetes mellitus with microalbuminuria, without long-term current use of insulin: Code(s): E11.29 - Type 2 diabetes mellitus with other diabetic kidney complication; R80.9 - Proteinuria, unspecified Category: Medical Plan: Hemoglobin A1c today is at 7%. Will continue on metformin 500 mg 1 tablet twice a day. Sees Dr. Betancur for his diabetes retinopathy screening, requested copy of last visit Orders: Orders AMB Hemoglobin A1c Today E11.29 - Type 2 diabetes mellitus with other diabetic kidney complication, R80.9 - Proteinuria, unspecified
== END 2024-08-16 10:08 | disposition home or self-care (01) ==
LOC: HO.HMCC 09:06
PROVIDERS: PCP Internal Medicine; Visit Provider Internal Medicine
DX: I48.0 Paroxysmal atrial fibrillation (principal); E78.5 Hyperlipidemia, unspecified; E11.29 Type 2 diabetes mellitus with other diabetic kidney complication; R80.9 Proteinuria, unspecified

== ENCOUNTER 2024-08-16 09:05 | Outpatient (REF) | payer OTHER, SELFPAY ==
[2024-08-16 14:26] LABS: MANUAL DIFF FLAG NO
[2024-08-16 14:34] LABS: Hematocrit 43.3 % (42.0-52.0); Hemoglobin 14.5 g/dl (14.0-18.0); Imm Gran Abs Auto 0.02 X10*3/uL (0.00-0.03); Imm Gran Pct Auto 0.2 % (0.0-0.4); Lymphocytes Absolute Auto 2.3 X10*3/uL (1.2-4.9); Mean Corpuscular HGB Conc 33.5 g/dl (31.0-36.0); Mean Corpuscular Hemoglobin 31.4 pg (27.0-33.0); Mean Corpuscular Volume 93.7 fL (80.0-98.0); NRBC Abs Auto 0.000 X10*3/uL (0.0-0.012); NRBC Pct Auto 0.0 /100WBC (0.0-0.2); Platelet Count 234 X10*3/uL (160-400); Red Blood Count 4.62 X10*6/uL (4.60-5.80); White Blood Count 8.4 X10*3/uL (4.8-10.8)
[2024-08-16 14:57] LABS: Alanine Aminotransferase 16 U/L (0-40); Anion Gap 9 (12-20); Aspartate Amino Transferase 23 U/L (5-37); Blood Urea Nitrogen 15 mg/dL (9-16); Calcium 9.3 mg/dL (8.4-10.2); Carbon Dioxide 29 mmol/L (22-29); Chloride 104 mmol/L (96-108); Cholesterol 187 mg/dL (<200); Estimated Glomerular Filt Rate > 60; HDL Cholesterol 51 mg/dL (>40); Iron 145 mcg/dL (45-160); Percent Iron Saturation 50 % (15-50); Potassium 4.1 mmol/L (3.3-5.1); Sodium 138 mmol/L (135-145); Total Iron Binding Capacity 291 mcg/dL (228-428); Triglycerides 136 mg/dL (<150); Unsaturated Iron Binding 146 ug/dL
== END 2024-08-16 09:06 | disposition home or self-care (01) ==
LOC: HO.HMGCLDS 09:05
PROVIDERS: PCP Internal Medicine; Visit Provider Internal Medicine
DX: E11.29 Type 2 diabetes mellitus with other diabetic kidney complication (principal); I48.0 Paroxysmal atrial fibrillation; E55.9 Vitamin D deficiency, unspecified; E78.5 Hyperlipidemia, unspecified; R80.9 Proteinuria, unspecified; Z00.01 Encounter for general adult medical examination with abnormal findings
CPT/HCPCS: 36415; 80048; 80061; 82306; 83036; 83540; 84450; 84460; 85025; 99212

== ENCOUNTER 2024-08-30 12:46 | Outpatient (AMB) | payer OTHER, SELFPAY ==
--- NOTE | 2024-08-30 13:02 | MHC.OFFVIS ---
Vital Signs 08/30/24 13:03 Height 5 ft 8 in Weight 169 lb 12.095 oz BMI 25.8 BP 100/60 Blood Pressure Location Lt brachial Position Sitting Pulse 59 Intake Visit Reasons: 4 mth f/up saw KM in error Intake Note: 4 month follow-up feeling good [employer] Required: No Allergies penicillin V Allergy (Unknown, Verified 08/16/24 09:43) itching Medication List - Last Reconciled 08/30/24 by Tariq Roberts MD acetaminophen ER (Tylenol Arthritis Pain) 650 mg PO Q12H apixaban (Eliquis) 5 mg PO BID 90 days atorvastatin 20 mg PO DAILY blood sugar diagnostic (Accu-Chek Glenys Plus test strips) use 1 strip twice a day to test blood sugar cholecalciferol (vitamin D3) (Vitamin D3) 25 mcg PO DAILY dronedarone (Multaq) 400 mg PO Q12H 30 days fluticasone propionate 50 mcg/actuation 1 spray intranasal DAILY lancets (Accu-Chek Softclix Lancets) use 1 lancet twice a day to test blood sugar metformin 500 mg PO BIDWMEAL 3 months HPI Comments Details: Anderson comes for follow-up. He continues to have pinpoint pain below his left nipple usually after eating. He does not get pain with exercise. He said couple of months ago he had issue with the left knee but now is resolved. He is back to walking again. He denies any shortness of breath, orthopnea, PND. Denies any prolonged palpitation irregular heartbeat. No bleeding issues or neurologic events. Takes all his medications regularly. [facility] Medical History History of gout Noncompliance with medication regimen Vitamin D deficiency Benign prostatic hyperplasia Dyslipidemia Diabetes mellitus with microalbuminuria, without long-term current use of insulin Surgical History Hx of cholecystectomy History of bladder surgery Family History Father HTN (hypertension) Son Diabetes mellitus Daughter No problems noted. Daughter No problems noted. Daughter No problems noted. Social History Housing: House Alcohol intake: never Patient Tobacco Use Status: Former Tobacco user Years Smoked: 12 yrs e-Cigarette/Vaping Use: Never Used service: No Current occupational status: retired Cognitive needs: No Hearing needs: No Vision needs: Yes Review of Systems Const Denies chills, Denies fatigue, Denies fever(s), Denies frequent falls, Denies weakness, Denies weight gain and Denies weight loss ENT Denies dizziness Card Denies chest pain, Denies leg edema, Denies lightheadedness, Denies palpitations, Denies dyspnea, Denies dyspnea on exertion, Denies orthopnea and Denies other (loss of consciousness) Resp Denies cough, Denies dyspnea and Denies dyspnea on exertion GI Denies hematochezia and Denies change in stool character Musc Denies abnormal gait, Denies muscle weakness, Denies numbness, Denies radiating pain into limb and Denies tingling Neuro Denies abnormal gait, Denies dizziness, Denies frequent falls, Denies numbness, Denies tingling and Denies weakness Endo Denies fatigue and Denies palpitations Physical Exam Vital Signs: Last Vital Signs Pulse 59 08/30/24 13:03 BP 100/60 08/30/24 13:03 BMI result Body Mass Index 25.8 Const General: cooperative, comfortable, no acute distress, alert, awake and Physically active Nutritional Appearance: overweight Orientation/consciousness: patient oriented x3 Limitations: no limitations Neck Neck: Yes trachea midline, Yes supple and Yes no JVD Resp Effort & Inspection: normal respiratory effort Auscultation: clear to auscultation bilaterally Cardio Jugular venous distension: no JVD Palpation: normal PMI Rate: regular rate Rhythm: regular rhythm Heart sounds: S1 normal heart sound present, S2 normal heart sound present, no click, no gallops, no murmurs and no rubs GI Auscultation: normal bowel sounds Neuro General: patient oriented x3 and no focal motor deficits Extrem General: Yes no clubbing, cyanosis or edema Office Procedures EKG Details: EKG shows normal sinus rhythm nonspecific STT wave changes [id number], Complete Assessment & Plan Assessment & Plan (1) Paroxysmal atrial fibrillation: Code(s): I48.0 - Paroxysmal atrial fibrillation Category: Medical Plan: Symptomatic paroxysmal atrial fibrillation without any obvious clinical recurrence at this point time current medical therapy. Has done extremely well with rhythm control approach will continue pursue rhythm control approach. Continue therapy with dronedarone. Will need EKGs every 3 months. Follow up in the clinic in 1 year's time. Continue blood thinner with Eliquis 5 mg b.i.d.. Semi annual renal function test should be pursued. Management of atrial fibrillation was discussed with him. Encouraged to maintain activity level as tolerated. (2) Chest pain: Code(s): R07.9 - Chest pain, unspecified Plan: Intermittent episode of chest pain which appears to be noncardiac in nature and appears to be more acid reflux related. Myocardial perfusion imaging which was within normal limits. Discussed with him about pursuing GI workup if he has continued symptoms. No further cardiac workup is indicated. He has diabetes which is being pursued and managed through your office. Goal hemoglobin A1c less than 7%. Continue statin therapy with target goal LDL less than 70 mg/dL. Will follow up in the clinic every 3 months for EKG in 1 year with me. Thank you for allowing me to partake in his care Coding Level of Care Code Est Pt Level 4 (08578) Complex EM visit Add On G2211 Diagnoses Paroxysmal atrial fibrillation I48.0 Chest pain R07.9 CPT Codes EKG - CPT: 14117-[id number], Complete ([id number])
[2024-08-30 13:03] VITALS: BP 100/60; PULSE 59; BMI 25.8
== END 2024-08-30 13:39 | disposition home or self-care (01) ==
LOC: HO.HCS 12:47
PROVIDERS: PCP Internal Medicine; Visit Provider Internal Medicine Cardiovascular Disease
DX: I48.0 Paroxysmal atrial fibrillation (principal); R07.9 Chest pain, unspecified
CPT/HCPCS: 93010; 99214; G2211

== ENCOUNTER → 2024-08-30 12:46 | Outpatient (BNVA) | payer OTHER, SELFPAY | PROVIDERS: PCP Internal Medicine; Visit Provider Internal Medicine Cardiovascular Disease | DX: I48.0 Paroxysmal atrial fibrillation (principal); R07.9 Chest pain, unspecified; R94.31 Abnormal electrocardiogram [ECG] [EKG]; R00.1 Bradycardia, unspecified | CPT/HCPCS: 93005; 99212 ==

== ENCOUNTER 2024-11-08 14:40 | Outpatient (AMB) | payer OTHER, SELFPAY ==
[2024-11-08 15:01] VITALS: BP 124/60; PULSE 76; RESP 16; TEMP 36.3; O2SAT 97; BMI 25.5
--- NOTE | 2024-11-08 15:01 | MHC.PC.OV ---
Vital Signs 11/08/24 15:01 Height 5 ft 8 in Weight 168 lb BMI 25.5 BP 124/60 Blood Pressure Location Lt brachial Position Sitting Respiration 16 Pulse 76 Pulse Source Pulse Oximeter Temp 97.4 F Temp Source Oral Pulse Oximetry (%) 97 Oxygen Delivery Method Room Air Intake Visit Reasons: diabetic shoes Intake Note: Pt is here today to discuss rx for diabetic shoes Telemarketing Representative Required: No Allergies penicillin V Allergy (Unknown, Verified 11/08/24 15:38) itching Medication List - Last Reconciled 11/08/24 by Kelsy Valdez MD acetaminophen ER (Tylenol Arthritis Pain) 650 mg PO Q12H atorvastatin 20 mg PO DAILY blood sugar diagnostic (Accu-Chek Glenys Plus test strips) use 1 strip twice a day to test blood sugar cholecalciferol (vitamin D3) (Vitamin D3) 25 mcg PO DAILY fluticasone propionate 50 mcg/actuation 1 spray intranasal DAILY lancets (Accu-Chek Softclix Lancets) use 1 lancet twice a day to test blood sugar metformin 500 mg PO BIDWMEAL 3 months rivaroxaban (Xarelto) 20 mg PO QPM Tobacco use date assessed: 11/08/24 Fall risk assessment: 1 Fall in past year Last assessed Fall Risk: 11/08/24 Dental Screening Dental Screen Date: 11/08/24 Did you have a dental visit in the last 12 months?: No Did you have a dental problem in the last 6 months where you did not have access to dental care?: No Was dental information given to patient?: Patient declined HPI diabetic shoes HPI Details 84-year-old male with type 2 diabetes mellitus, currently on metformin 500 mg taken 1 tablet twice a day with meals, here today for his follow-up . He has been compliant with taking his medications, tries to adhere to recommended diet and tries to stay active as much as possible. He has latest hemoglobin A1c is at 7%. He is currently being followed by Dr. Valentin, his fixed income trading vice president, who has been following him for his diabetic polyneuropathy and hammertoes in both feet. He needs a renewal on his diabetic shoes prescription. [facility] Medical History (Updated 11/15/24 @ 00:00 by Kelsy Valdez MD) Hammertoe, bilateral History of gout Vitamin D deficiency Benign prostatic hyperplasia Dyslipidemia Diabetes mellitus with microalbuminuria, without long-term current use of insulin Surgical History Hx of cholecystectomy History of bladder surgery Family History Father HTN (hypertension) Son Diabetes mellitus Daughter No problems noted. Daughter No problems noted. Daughter No problems noted. Social History Housing: House Alcohol intake: never Patient Tobacco Use Status: Former Tobacco user Years Smoked: 12 yrs e-Cigarette/Vaping Use: Never Used service: No Current occupational status: retired Cognitive needs: No Hearing needs: No Vision needs: Yes Questionnaire PHQ-9 Over the last 2 weeks, how often have you been bothered by any of the following problems? Depression Screening Interpretation: Negative Depression Screening Done: Yes Source: Developed by Drs. Federico Ramirez, Kiley Ho, José Antonio Head and colleagues, with an educational roseann from [employer]. Thrive Questionnaire Date Thrive assessed: 04/12/24 KARTHIK-7 AMB Questionnaire KARTHIK-7 Date KARTHIK - 7 assessed: 04/12/24 Source: Developed by Drs. Federico Ramirez, Kiley Ho, José Antonio Head and colleagues, with an educational roseann from [employer]. Review of Systems Const Denies fatigue, Denies fever(s), Denies frequent falls, Denies lethargy and Denies weakness Eyes Details: Sees Dr. Betancur for his diabetes retinopathy screening, request of last diabetes eye exam requested ENT Reports no additional complaints and Denies dizziness Card Denies chest pain, Denies leg edema, Denies lightheadedness, Denies palpitations, Denies dyspnea and Denies dyspnea on exertion Resp Denies cough, Denies dyspnea and Denies dyspnea on exertion GI Denies abdominal pain, Denies melena, Denies hematochezia, Denies change in bowel habits and Denies heartburn Reports no additional complaints Musc Denies abnormal gait, Denies muscle weakness, Denies numbness and Denies radiating pain into limb Skin/Breast Denies unusual bruising Neuro Denies abnormal gait, Denies dizziness, Denies frequent falls, Denies numbness and Denies weakness Psych Reports no additional complaints Endo Denies fatigue and Denies palpitations Ronaldo/Lymph Reports no additional complaints Aller/Immun Reports no additional complaints Physical exam (Primary Care) Vital Signs: Last Vital Signs Temp 97.4 F 11/08/24 15:01 Pulse 76 11/08/24 15:01 Resp 16 11/08/24 15:01 BP 124/60 11/08/24 15:01 Pulse Ox 97 11/08/24 15:01 Oxygen Delivery Method Room Air 11/08/24 15:01 BMI result Body Mass Index 25.5 Tobacco/Smoking Status: Tobacco use Status Tobacco use date assessed 11/08/24 11/08/24 15:02 Patient Tobacco Use Status Former Tobacco user 11/08/24 15:02 e-Cigarette/Vaping Use Never Used 11/08/24 15:02 Depression Screening Interpretation: Negative Thrive Assessment: Date of Thrive Assessment Date Thrive assessed 04/12/24 11/08/24 15:02 Const General: comfortable and no acute distress Orientation/consciousness: patient oriented x3 HENMT Head: Yes normocephalic Mouth: Normal oral and palatal mucosa present and moist mucous membranes Eyes General: appearance normal, both eyes and all related structures Neck Neck: Yes full ROM, Yes no lymphadenopathy and Yes supple Resp Effort & Inspection: normal respiratory effort Auscultation: clear to auscultation bilaterally Cardio Rate: regular rate Rhythm: regular rhythm Heart sounds: S1 normal heart sound present and S2 normal heart sound present GI Palpation (GI): Soft to palpation, no guarding and no masses Auscultation: normal bowel sounds General: Yes no CVA tenderness Back/Spine/Pelvis Back: no CVA tenderness and No back tenderness Skin Other: Preulcerative callus noted in both feet Neuro General: patient oriented x3, gait normal, tone normal, moves all extremities, no focal motor deficits and decrease sensation to monofilament Extrem Other: Hammertoes noted in both feet General: Yes no clubbing, cyanosis or edema Psych Appearance: grossly normal and well kempt Mental Status: mental status grossly normal Speech and movement: Normal speech and movement present Affect: normal affect Coding Level of Care Code Est Pt Level 4 (25902) Complex EM visit Add On G2211 Diagnoses Diabetes mellitus with microalbuminuria, without long-term current use of insulin E11.29; R80.9 Dyslipidemia E78.5 Assessment & Plan Assessment & Plan (1) Diabetes mellitus with microalbuminuria, without long-term current use of insulin: Code(s): E11.29 - Type 2 diabetes mellitus with other diabetic kidney complication; R80.9 - Proteinuria, unspecified Category: Medical Plan: Last hemoglobin A1c was 7% in August 2024, ordered repeat hemoglobin A1c, basic metabolic panel and urine microalbumin screening. Continued on metformin 500 mg taken 1 tablet twice a day. Currently being followed by his fixed income trading vice president Dr. Iniguez who prescribed new diabetic shoes with inserts (2) Dyslipidemia: Code(s): E78.5 - Hyperlipidemia, unspecified Category: Medical Plan: Fasting lipid panel ordered today. Continued on atorvastatin 20 mg daily Orders: Orders Basic Metabolic Panel Fasting 11/08/24. - Type 2 diabetes mellitus with other diabetic kidney complication, E78.5 - Hyperlipidemia, unspecified, R80.9 - Proteinuria, unspecified Alanine Aminotransferase 11/08/24. - Type 2 diabetes mellitus with other diabetic kidney complication, E78.5 - Hyperlipidemia, unspecified, R80.9 - Proteinuria, unspecified Aspartate Amino Transferase 11/08/24. - Type 2 diabetes mellitus with other diabetic kidney complication, E78.5 - Hyperlipidemia, unspecified, R80.9 - Proteinuria, unspecified Vitamin D 25-OH Total 11/08/24. - Type 2 diabetes mellitus with other diabetic kidney complication, E78.5 - Hyperlipidemia, unspecified, R80.9 - Proteinuria, unspecified Lipid Panel 11/08/24. - Type 2 diabetes mellitus with other diabetic kidney complication, E78.5 - Hyperlipidemia, unspecified, R80.9 - Proteinuria, unspecified Microalbumin, Random (w Creat) 11/08/24. - Type 2 diabetes mellitus with other diabetic kidney complication, E78.5 - Hyperlipidemia, unspecified, R80.9 - Proteinuria, unspecified Hemoglobin A1c 11/08/24. - Type 2 diabetes mellitus with other diabetic kidney complication, E78.5 - Hyperlipidemia, unspecified, R80.9 - Proteinuria, unspecified
== END 2024-11-08 15:48 | disposition home or self-care (01) ==
LOC: HO.HMCC 14:41
PROVIDERS: PCP Internal Medicine; Visit Provider Internal Medicine
DX: E11.29 Type 2 diabetes mellitus with other diabetic kidney complication (principal); R80.9 Proteinuria, unspecified; E78.5 Hyperlipidemia, unspecified

== ENCOUNTER → 2024-11-08 14:40 | Outpatient (BNVA) | payer OTHER, SELFPAY | PROVIDERS: PCP Internal Medicine; Visit Provider Internal Medicine | DX: E11.29 Type 2 diabetes mellitus with other diabetic kidney complication (principal); R80.9 Proteinuria, unspecified; E78.5 Hyperlipidemia, unspecified; Z79.84 Long term (current) use of oral hypoglycemic drugs | CPT/HCPCS: 99212 ==

== ENCOUNTER 2024-11-23 08:05 | Outpatient (REF) | payer OTHER, SELFPAY ==
[2024-11-23 11:55] LABS: Microalbum/Creatinine Ratio Ur 30.7 ug/mg cr (<30)
[2024-11-23 14:05] LABS: Alanine Aminotransferase 13 U/L (0-40); Anion Gap 11 (12-20); Aspartate Amino Transferase 20 U/L (5-37); Blood Urea Nitrogen 15 mg/dL (9-16); Calcium 9.1 mg/dL (8.4-10.2); Carbon Dioxide 27 mmol/L (22-29); Chloride 108 mmol/L (96-108); Cholesterol 139 mg/dL (<200); Estimated Glomerular Filt Rate > 60; HDL Cholesterol 50 mg/dL (>40); Potassium 4.0 mmol/L (3.3-5.1); Sodium 142 mmol/L (135-145); Triglycerides 94 mg/dL (<150)
== END 2024-11-23 08:06 | disposition home or self-care (01) ==
LOC: HO.HMGCLDS 08:05
PROVIDERS: PCP Internal Medicine; Visit Provider Internal Medicine
DX: E11.29 Type 2 diabetes mellitus with other diabetic kidney complication (principal); E78.5 Hyperlipidemia, unspecified; R80.9 Proteinuria, unspecified; Z13.21 Encounter for screening for nutritional disorder
CPT/HCPCS: 36415; 80048; 80061; 82043; 82306; 82570; 83036; 84450; 84460

== ENCOUNTER 2024-11-27 08:51 | Outpatient (AMB) | payer OTHER, SELFPAY ==
--- NOTE | 2024-11-27 09:38 | MHC.PC.OV ---
Vital Signs 11/27/24 09:39 Height 5 ft 8 in Weight 170 lb BMI 25.8 BP 102/64 Blood Pressure Location Lt brachial Position Sitting Respiration 16 Pulse 64 Pulse Source Pulse Oximeter Pulse Oximetry (%) 98 Oxygen Delivery Method Room Air Intake Visit Reasons: 3.5m follow up Allergies penicillin V Allergy (Unknown, Verified 11/08/24 15:38) itching Medication List - Last Reconciled 11/27/24 by Kelsy Valdez MD acetaminophen ER (Tylenol Arthritis Pain) 650 mg PO Q12H atorvastatin 20 mg PO DAILY blood sugar diagnostic (Accu-Chek Glenys Plus test strips) use 1 strip twice a day to test blood sugar cholecalciferol (vitamin D3) (Vitamin D3) 25 mcg PO DAILY fluticasone propionate 50 mcg/actuation 1 spray intranasal DAILY lancets (Accu-Chek Softclix Lancets) use 1 lancet twice a day to test blood sugar metformin 500 mg PO BIDWMEAL 3 months rivaroxaban (Xarelto) 20 mg PO QPM Tobacco use date assessed: 11/27/24 Fall risk assessment: No Falls in past year Last assessed Fall Risk: 11/27/24 Dental Screening Dental Screen Date: 11/27/24 Did you have a dental visit in the last 12 months?: No Did you have a dental problem in the last 6 months where you did not have access to dental care?: No Was dental information given to patient?: Patient declined HPI 3.5m follow up HPI Details 84-year-old male with past medical history significant for diabetes mellitus, dyslipidemia, here today for follow-up. Currently taking metformin 500 mg 1 tab twice a day with meals and atorvastatin 20 mg daily. Latest fasting labs showed worsening diabetes control, with hemoglobin A1c going up% on latest labs done. Fasting lipids however are within normal limits but vitamin-D level is deficient at 17. Patient states he is taking vitamin-D 3 supplements but unsure of the dose. Does not check his blood sugar at home despite having glucometer. Up-to-date with his diabetes retinopathy screening, sees Dr. Betancur, with no retinopathy seen. Reminded to get an updated COVID booster and yearly flu shot, has had his pneumonia vaccine in the past, up-to-date with Tdap, has not yet received his shingles vaccine or RSV PFSH Medical History Hammertoe, bilateral History of gout Vitamin D deficiency Benign prostatic hyperplasia Dyslipidemia Diabetes mellitus with microalbuminuria, without long-term current use of insulin Surgical History Hx of cholecystectomy History of bladder surgery Family History Father HTN (hypertension) Son Diabetes mellitus Daughter No problems noted. Daughter No problems noted. Daughter No problems noted. Social History Housing: House Alcohol intake: never Patient Tobacco Use Status: Former Tobacco user Years Smoked: 12 yrs e-Cigarette/Vaping Use: Never Used service: No Current occupational status: retired Cognitive needs: No Hearing needs: No Vision needs: Yes Questionnaire PHQ-9 Over the last 2 weeks, how often have you been bothered by any of the following problems? Depression Screening Interpretation: Negative Depression Screening Done: Yes Source: Developed by Drs. Federico Ramirez, Kiley Ho, José Antonio Head and colleagues, with an educational roseann from [employer]. Thrive Questionnaire Date Thrive assessed: 04/12/24 KARTHIK-7 AMB Questionnaire KARTHIK-7 Date KARTHIK - 7 assessed: 04/12/24 Source: Developed by Drs. Federico Ramirez, Kiley Ho, José Antonio Head and colleagues, with an educational roseann from [employer]. Review of Systems Const Denies fatigue, Denies fever(s), Denies frequent falls, Denies lethargy and Denies weakness Eyes Details: Sees Dr. Betancur for his diabetes retinopathy screening ENT Reports no additional complaints and Denies dizziness Card Denies chest pain, Denies leg edema, Denies lightheadedness, Denies palpitations, Denies dyspnea and Denies dyspnea on exertion Resp Denies cough, Denies dyspnea and Denies dyspnea on exertion GI Denies abdominal pain, Denies melena, Denies hematochezia, Denies change in bowel habits and Denies heartburn Reports no additional complaints Musc Denies abnormal gait, Denies muscle weakness, Denies numbness and Denies radiating pain into limb Skin/Breast Denies unusual bruising Neuro Denies abnormal gait, Denies dizziness, Denies frequent falls, Denies numbness and Denies weakness Psych Reports no additional complaints Endo Denies fatigue and Denies palpitations Ronaldo/Lymph Reports no additional complaints Aller/Immun Reports no additional complaints Physical exam (Primary Care) Vital Signs: Last Vital Signs Pulse 64 11/27/24 09:39 Resp 16 11/27/24 09:39 BP 102/64 11/27/24 09:39 Pulse Ox 98 11/27/24 09:39 Oxygen Delivery Method Room Air 11/27/24 09:39 BMI result Body Mass Index 25.8 Tobacco/Smoking Status: Tobacco use Status Tobacco use date assessed 11/27/24 11/27/24 09:42 Patient Tobacco Use Status Former Tobacco user 11/27/24 09:42 e-Cigarette/Vaping Use Never Used 11/27/24 09:42 Depression Screening Interpretation: Negative Thrive Assessment: Date of Thrive Assessment Date Thrive assessed 04/12/24 11/27/24 09:42 Const General: no acute distress Orientation/consciousness: patient oriented x3 HENMT Head: Yes normocephalic Mouth: Normal oral and palatal mucosa present and moist mucous membranes Eyes General: appearance normal, both eyes and all related structures Neck Neck: Yes full ROM, Yes no lymphadenopathy and Yes supple Resp Effort & Inspection: normal respiratory effort Auscultation: clear to auscultation bilaterally Cardio Rate: regular rate Rhythm: regular rhythm Heart sounds: S1 normal heart sound present and S2 normal heart sound present GI Palpation (GI): Soft to palpation, no guarding and no masses Auscultation: normal bowel sounds General: Yes no CVA tenderness Back/Spine/Pelvis Back: no CVA tenderness and No back tenderness Skin Other: Preulcerative callus noted in both feet Neuro General: patient oriented x3, gait normal, tone normal, moves all extremities, no focal motor deficits and decrease sensation to monofilament Extrem Other: Hammertoes noted in both feet General: Yes no clubbing, cyanosis or edema Psych Appearance: grossly normal and well kempt Mental Status: mental status grossly normal Speech and movement: Normal speech and movement present Affect: normal affect Results Reviewed Results Reviewed: Name: Anderson Sampson Age/Sex: 84/M : 1940 Unit#: [id number] Attend Dr: Kelsy Valdez MD Re08/16/24 Status: DEP REF Location: [facility] Disch: SPEC : [id number] MIGUEL: 08/16/24 STATUS: COMP REQ : [id number] RECD: 08/16/24-[address]: Kelsy Valdez MD COMP: 08/16/24 ENTERED: 08/16/24 [facility] [address]: ORDERED: CBC Auto Diff Test Result Flag Reference WBC 8.4 4.8-10.8 X10*3/uL RBC 4.62 4.60-5.80 X10*6/uL HGB 14.5 14.0-18.0 g/dl HCT 43.3 42.0-52.0 % MCV 93.7 80.0-98.0 fL MCH 31.4 27.0-33.0 pg MCHC 33.5 31.0-36.0 g/dl RDW 12.6 11.0-16.0 % PLT 234 160-400 X10*3/uL MPV 9.3 L 9.4-12.4 fL Neut Pct Auto 65.5 45-73 % ImGran Pct Auto 0.2 0.0-0.4 % Lymp Pct Auto 26.7 20-40 % Gilpin Pct Auto 5.8 2-11 % Eos Pct Auto 1.4 0-4 % Baso Pct Auto 0.4 0-2 % NRBC Pct Auto 0.0 0.0-0.2 /100WBC ANC Neut Abs # 5.5 2.0-8.3 x10*3/uL ImGran Abs Auto 0.02 0.00-0.03 X10*3/uL Lymph Abs Auto 2.3 1.2-4.9 X10*3/uL Gilpin Abs Auto 0.5 0.1-1.2 X10*3/uL Eos Abs Auto 0.1 0.0-0.4 X10*3/uL Baso Abs Auto 0.0 0.0-0.2 X10*3/uL NRBC Abs Auto 0.000 0.0-0.012 X10*3/uL Name: Anderson Sampson Efraín Age/Sex: 84/M : 1940 Unit#: [id number] Attend Dr: Kelsy Valdez MD Re11/23/24 Status: DEP REF Location: [facility] Disch: SPEC : [id number] MIGUEL: 11/23/24 STATUS: COMP REQ : [id number] RECD: 11/23/[address]: Kelsy Valdez MD COMP: 11/23/24 ENTERED: 11/23/24 [facility] [address]: ORDERED: Met Prof Fast, AST, ALT, Lipid Panel, Vitamin D 25-OH Test Result Flag Reference Sodium 142 135-145 mmol/L Potassium 4.0 3.3-5.1 mmol/L CL 108 96-108 mmol/L CO2 27 22-29 mmol/L Gap 11 L 12-20 BUN 15 9-16 mg/dL Creat 0.93 0.5-1.4 mg/dL eGFR > 60 Chronic Kidney Disease: Estimated GFR < 60 mL/min/1.73m2 Severe Kidney Disease: Estimated GFR < 15 mL/min/1.73m2 FBS 147 H 60-99 mg/dL A fasting glucose of 126 mg/dl or greater on more than one occasion is considered diagnostic of diabetes. CA 9.1 8.4-10.2 mg/dL AST (GOT) 20 5-37 U/L ALT (GPT) 13 0-40 U/L Triglyceride 94 <150 mg/dL Desirable Triglyceride: less than 150 mg/dL Borderline High Triglyceride 150-199 mg/dL High Triglyceride: 200-499 mg/dL Very High Triglyceride: greater than or equal to 5OO mg/dL Cholesterol 139 <200 mg/dL Desirable Cholesterol: less than 200 mg/dL Borderline High Cholesterol: 200-239 mg/dL High Cholesterol: greater than 239 mg/dL LDL Calculated 71 <100 mg/dL Desirable LDL: less than 100 mg/dL Near Optimal/Above Optimal LDL: 110-129 mg/dL Borderline High LDL: 130-159 mg/dL High LDL: 160-189 mg/dL Very High LDL: greater than or equal to 190 mg/dL HDL 50 >40 mg/dL Desirable HDL: greater than 40 mg/dL Note: This HDL assay may give artificially low results in patients with liver disease. Vitamin D 25-OH 17.3 L >30 ng/mL Health Based Reference Values* < 20 ng/mL Deficient 20-30 ng/mL Insufficient > 30 ng/mL Sufficient Laboratory Tests 08/16/24 11/23/24 11/23/24 09:24 08:17 08:25 Estimat Average Glucose 171 Hgb A1c (Clinic) 7.0 H Hemoglobin A1c % 7.6 H Microalb/Creat Ratio 30.7 H Coding Level of Care Code Est Pt Level 4 (47176) Complex EM visit Add On G2211 Diagnoses Diabetes mellitus with microalbuminuria, without long-term current use of insulin E11.29; R80.9 Dyslipidemia E78.5 Vitamin D deficiency E55.9 Assessment & Plan Assessment & Plan (1) Diabetes mellitus with microalbuminuria, without long-term current use of insulin: Code(s): E11.29 - Type 2 diabetes mellitus with other diabetic kidney complication; R80.9 - Proteinuria, unspecified Category: Medical Plan: Increase metformin dose to 750 mg in the morning and continue with 500 mg at night with supper. Advised to check his blood glucose at home but patient declined. Up-to-date with his diabetes retinopathy screening, sees Dr. Betancur with no ocular complications from diabetes seen. Will see him back for follow-up in March 2025 after fasting labs done. Reminded him to get his updated flu vaccine, COVID booster (2) Dyslipidemia: Code(s): E78.5 - Hyperlipidemia, unspecified Category: Medical Plan: Fasting lipids are within normal limits. Continued on atorvastatin 20 mg daily (3) Vitamin D deficiency: Code(s): E55.9 - Vitamin D deficiency, unspecified Plan: Does not want to get a prescription for vitamin-D, will call with dose of vitamin-D supplement that he is taking and will adjust how much to take from there Orders: Orders Aspartate Amino Transferase 03/10/25 E11.29 - Type 2 diabetes mellitus with other diabetic kidney complication, E55.9 - Vitamin D deficiency, unspecified, E78.5 - Hyperlipidemia, unspecified, R80.9 - Proteinuria, unspecified Hemoglobin A1c 03/10/25 E11.29 - Type 2 diabetes mellitus with other diabetic kidney complication, E55.9 - Vitamin D deficiency, unspecified, E78.5 - Hyperlipidemia, unspecified, R80.9 - Proteinuria, unspecified Lipid Panel 03/10/25 E11.29 - Type 2 diabetes mellitus with other diabetic kidney complication, E55.9 - Vitamin D deficiency, unspecified, E78.5 - Hyperlipidemia, unspecified, R80.9 - Proteinuria, unspecified Vitamin D 25-OH Total 03/10/25 E11.29 - Type 2 diabetes mellitus with other diabetic kidney complication, E55.9 - Vitamin D deficiency, unspecified, E78.5 - Hyperlipidemia, unspecified, R80.9 - Proteinuria, unspecified Basic Metabolic Panel Fasting 03/10/25 E11.29 - Type 2 diabetes mellitus with other diabetic kidney complication, E55.9 - Vitamin D deficiency, unspecified, E78.5 - Hyperlipidemia, unspecified, R80.9 - Proteinuria, unspecified Alanine Aminotransferase 03/10/25. - Type 2 diabetes mellitus with other diabetic kidney complication, E55.9 - Vitamin D deficiency, unspecified, E78.5 - Hyperlipidemia, unspecified, R80.9 - Proteinuria, unspecified Medications: Changed From metformin 500 mg PO BIDWMEAL 3 months 180 tabs 1RF E11. - Type 2 diabetes mellitus with other diabetic kidney complication, R80.9 - Proteinuria, unspecified To metformin 750 mg in the morning and 500 mg at night with food orally 2 times per day with meals; 135 tabs 1RF 3 months E11. - Type 2 diabetes mellitus with other diabetic kidney complication, R80.9 - Proteinuria, unspecified
[2024-11-27 09:39] VITALS: BP 102/64; PULSE 64; RESP 16; O2SAT 98; BMI 25.8
== END 2024-11-27 10:14 | disposition home or self-care (01) ==
LOC: HO.HMCC 08:52
PROVIDERS: PCP Internal Medicine; Visit Provider Internal Medicine
DX: E11.29 Type 2 diabetes mellitus with other diabetic kidney complication (principal); R80.9 Proteinuria, unspecified; E78.5 Hyperlipidemia, unspecified; E55.9 Vitamin D deficiency, unspecified

== ENCOUNTER → 2024-11-27 08:51 | Outpatient (BNVA) | payer OTHER, SELFPAY | PROVIDERS: PCP Internal Medicine; Visit Provider Internal Medicine | DX: E11.29 Type 2 diabetes mellitus with other diabetic kidney complication (principal); E78.5 Hyperlipidemia, unspecified; E55.9 Vitamin D deficiency, unspecified; R80.9 Proteinuria, unspecified; Z79.84 Long term (current) use of oral hypoglycemic drugs | CPT/HCPCS: 99212 ==